=== PATIENT | female | born 1955 | race Caucasian/White ===

== ENCOUNTER → 2023-07-14 08:26 | Outpatient (REF) | payer MEDICARE, SELFPAY ==
[2023-07-14 09:06] LABS: % Basophils 0.9 % (0-2); % Eosinophils 3.4 % (0-6); % Immature Granulocytes 0.5 % (0-0.5); % Lymphocytes 24.8 % (20.5-51.1); % Monocytes 4.8 % (1.7-9.3); % Neutrophils 65.6 % (42.2-75.2); Absolute Eosinophils 0.2 10^3/uL (0-0.7); Absolute Lymphocytes 1.1 10^3/uL (1.2-3.4); Absolute Monocytes 0.2 10^3/uL (0.1-0.6); Absolute Neutrophils 2.9 10^3/uL (1.4-6.5); Hematocrit 37.4 % (37.0-47.0); Hemoglobin 13.5 g/dL (12.0-16.0); Mean Corp Hgb Conc. 36.1 g/dL (33.0-37.0); Mean Corpuscular Hgb 29.7 pg (27.0-31.0); Mean Corpuscular Volume 82.2 fL (81.0-99.0); Mean Platelet Volume 10.2 fL (7.4-10.4); Nucleated Red Blood Cells % 0 %; Platelet Count 217 10^3/uL (130-400); Red Blood Cell Count 4.55 10^6/uL (4.20-5.40); Red Cell Dist. Width 12.4 % (11.5-14.5); White Blood Cell Count 4.4 10^3/uL (4.8-10.8)
[2023-07-14 09:46] LABS: ALT (SGPT) 19 U/L (0-35); AST (SGOT) 23 U/L (14-36); Albumin 4.4 g/dl (3.5-5.0); Alkaline Phosphatase 74 U/L (38-126); Blood Urea Nitrogen 23 mg/dl (7-17); Calcium 9.5 mg/dl (8.4-10.2); Carbon Dioxide 27 mmol/L (22-30); Chloride 104 mmol/L (98-107); Glucose 111 mg/dl (70-99); HDL Cholesterol 66 mg/dl; LDL Cholesterol, Calculated 82 mg/dl; Potassium 4.5 mmol/L (3.5-5.1); Sodium 140 mmol/L (135-145); Total Bilirubin 0.7 mg/dl (0.2-1.3); Total Cholesterol 166 mg/dl (50-199); Total Protein 6.9 g/dl (6.3-8.2); Triglyceride 90 mg/dl (10-149); Very Low Density Lipoprotein 18 mg/dl (0-30); eGFR > 60.00
[2023-07-14 10:09] LABS: TSH Reflex To Free T4 0.49 uIU/ml (0.47-4.68)
== END ==
LOC: REG 08:26
PROVIDERS: ATTENDING PHYSICIAN Physician Assistant
DX: Z00.00 Encounter for general adult medical examination without abnormal findings (principal); E78.5 Hyperlipidemia, unspecified; J30.9 Allergic rhinitis, unspecified; E55.9 Vitamin D deficiency, unspecified; K21.9 Gastro-esophageal reflux disease without esophagitis; R14.3 Flatulence; Z13.29 Encounter for screening for other suspected endocrine disorder
CPT/HCPCS: 36415; 80053; 80061; 84443; 85025

== ENCOUNTER → 2023-08-17 12:55 | Outpatient (REF) | payer MEDICARE, SELFPAY | LOC: WDC 12:55 | PROVIDERS: ATTENDING PHYSICIAN Physician Assistant | DX: Z12.31 Encounter for screening mammogram for malignant neoplasm of breast (principal) | CPT/HCPCS: 77063; 77067 ==

== ENCOUNTER → 2024-08-16 07:33 | Outpatient (REF) | payer MEDICARE, SELFPAY ==
[2024-08-16 08:16] LABS: % Basophils 1.1 % (0-2); % Eosinophils 3.6 % (0-6); % Immature Granulocytes 0.2 % (0-0.5); % Lymphocytes 22.2 % (20.5-51.1); % Monocytes 5.4 % (1.7-9.3); % Neutrophils 67.5 % (42.2-75.2); Absolute Basophils 0.1 10^3/uL (0-0.2); Absolute Eosinophils 0.2 10^3/uL (0-0.7); Absolute Monocytes 0.2 10^3/uL (0.1-0.6); Hemoglobin 13.8 g/dL (12.0-16.0); Mean Corp Hgb Conc. 34.5 g/dL (33.0-37.0); Mean Corpuscular Hgb 29.4 pg (27.0-31.0); Mean Corpuscular Volume 85.3 fL (81.0-99.0); Nucleated Red Blood Cells % 0 %; Platelet Count 231 10^3/uL (130-400); Red Blood Cell Count 4.69 10^6/uL (4.20-5.40); Red Cell Dist. Width 12.4 % (11.5-14.5); White Blood Cell Count 4.5 10^3/uL (4.8-10.8)
[2024-08-16 11:50] LABS: ALT (SGPT) 19 U/L (0-35); AST (SGOT) 24 U/L (14-36); Albumin 4.7 g/dl (3.5-5.0); Alkaline Phosphatase 82 U/L (38-126); Blood Urea Nitrogen 17 mg/dl (7-17); Calcium 9.5 mg/dl (8.4-10.2); Carbon Dioxide 25 mmol/L (22-30); Chloride 105 mmol/L (98-107); Glucose 108 mg/dl (70-99); HDL Cholesterol 74 mg/dl; LDL Cholesterol, Calculated 101 mg/dl; Potassium 4.6 mmol/L (3.5-5.1); Sodium 142 mmol/L (135-145); Total Bilirubin 0.7 mg/dl (0.2-1.3); Total Cholesterol 201 mg/dl (50-199); Triglyceride 132 mg/dl (10-149); Very Low Density Lipoprotein 26 mg/dl (0-30); eGFR > 60.00
[2024-08-16 12:49] LABS: Vitamin D, 25-OH*** 30.7 ng/mL (30-80)
== END ==
LOC: REG 07:33
PROVIDERS: ATTENDING PHYSICIAN Physician Assistant
DX: F51.04 Psychophysiologic insomnia (principal); J45.991 Cough variant asthma; E78.5 Hyperlipidemia, unspecified; E55.9 Vitamin D deficiency, unspecified; Z13.0 Encounter for screening for diseases of the blood and blood-forming organs and certain disorders involving the immune mechanism; R73.01 Impaired fasting glucose
CPT/HCPCS: 36415; 80053; 80061; 82306; 85025

== ENCOUNTER → 2024-08-20 12:59 | Outpatient (REF) | payer MEDICARE, SELFPAY | LOC: WDC 12:59 | PROVIDERS: ATTENDING PHYSICIAN Physician Assistant | DX: Z12.31 Encounter for screening mammogram for malignant neoplasm of breast (principal) | CPT/HCPCS: 77063; 77067 ==

== ENCOUNTER 2024-11-16 05:26 | Observation (INO) | payer MEDICARE, SELFPAY ==
[2024-11-15 22:38] VITALS: BP 172/96
[2024-11-15 23:24] LABS: Hematocrit 37.0 % (37.0-47.0); Hemoglobin 12.9 g/dL (12.0-16.0); Mean Corp Hgb Conc. 34.9 g/dL (33.0-37.0); Mean Corpuscular Volume 84.3 fL (81.0-99.0); Nucleated Red Blood Cells % 0 %; Platelet Count 218 10^3/uL (130-400); Red Cell Dist. Width 12.4 % (11.5-14.5)
[2024-11-15 23:32] LABS: ALT (SGPT) 16 U/L (0-35); AST (SGOT) 22 U/L (14-36); Albumin 4.4 g/dl (3.5-5.0); Alkaline Phosphatase 75 U/L (38-126); Blood Urea Nitrogen 16 mg/dl (7-17); Calcium 9.6 mg/dl (8.4-10.2); Carbon Dioxide 27 mmol/L (22-30); Chloride 106 mmol/L (98-107); Glucose 135 mg/dl (70-99); Potassium 3.8 mmol/L (3.5-5.1); Sodium 139 mmol/L (135-145); Total Protein 7.1 g/dl (6.3-8.2); eGFR > 60.00
[2024-11-15 23:43] LABS: Lipase > 4000 U/L (23-300); Troponin I < 0.012 ng/ml
[2024-11-16] VITALS (9 sets, daily range): BP systolic 125–164; BP diastolic 63–99; BMI 20.6; BMI 24.9
--- NOTE | 2024-11-16 02:00 | ED.GENMED ---
History of Present Illness
General
Chief Complaint: Abdominal Pain
Source: patient and spouse
Exam Limitations: none
Time Seen by Provider: 11/16/24 01:47
Nursing documentation reviewed up to this point in time: agreed with
History of Present Illness
History of Present Illness:
69-year-old female presenting to the emergency department today with concerns of 2 days of epigastric abdominal pain with associated nausea no vomiting no diarrhea constipation. Denies any fevers chest pain or shortness of breath.
Past History
Past History
ED Past Medical History: Asthma, GERD and Hypercholesterolemia; Negative HTN, IDDM or NIDDM
Social History
Tobacco: Non-smoker
Family History
Family History: CAD
Review of Systems
Review of Systems
Allergies reviewed?: Yes
All Other Systems: ROS reviewed and negative except as documented in HPI and ROS
Phy Exam
Physical Exam
Physical Exam:
GENERAL: Alert , in no apparent distress
EYE: pupils equal and reactive
NECK: Supple, no significant adenopathy.
ENT: o/p clr, mmm.
CARDIAC: Regular rate and rhythm .
LUNGS: Clear breath sounds bilaterally, no acute respiratory distress, no wheezes/rales/rhonchi
ABDOMEN: Epigastric pain to palpation otherwise soft abdomen
NEUROLOGICAL: Alert and oriented, no focal neuro deficits
SKIN: Warm and dry, skin intact.
MUSCULOSKELETAL: No edema, well perfused.
PSYCH: Normal and appropriate interaction.
Course
Orders/Labs/Results
Orders:
Orders
11/15/24 22:41
Electrocardiogram (*1) Urgent
Reason for Study: Abdominal Pain
EKG- Treatment ONCE
11/15/24 22:58
Complete Blood Count/With Diff Urgent
Comprehensive Metabolic Panel Urgent
Lipase Urgent
Troponin I Urgent
11/16/24 01:36
CT Abd/Pel (IV only)-DH only Urgent
Comment:
Reason For Exam: pain, lipase elevation
11/16/24 02:00
0.9% Sodium Chloride 1000 ml [Nss] 1,000 ml IV BOLUS
Abnormal Lab Results
11/15/24
22:58
Lymphocytes % 17.4 L %
(20.5-51.1)
Glucose 135 H mg/dl
(70-99)
Lipase > 4000 H* U/L
(23-300)
11/15/24 22:58
11/15/24 22:58
Vital Signs
Initial and Last Documented VS:
Initial Vital Signs
Temp Pulse Resp BP Pulse Ox
98.6 F 83 18 172/96 97
11/15/24 22:38 11/15/24 22:38 11/15/24 22:38 11/15/24 22:38 11/15/24 22:38
Last Documented Vital Signs
Temp Pulse Resp BP Pulse Ox
98.6 F 73 16 144/80 97
11/15/24 22:38 11/16/24 02:15 11/16/24 02:15 11/16/24 02:00 11/16/24 02:15
MDM/Problems Addressed
MDM/Problems Addressed:
69-year-old female presenting to the emergency department today with epigastric abdominal pain past 2 days. Appetite associated diarrhea. On arrival here initial labs showing elevated lipase level consistent with pancreatitis. She denies
significant alcohol use does sometimes have a glass of wine. CT scan was obtained that did not show any complications, did confirm pancreatitis. Plan to admit for further treat, IV hydration.
*Pulse Oximetry
SaO2: 97
Oxygen Mode of Delivery: Room air
Patient hypoxic: no (97)
*Critical Care Note
Total Time (30-74mins, 75-104mins- exclusive of procedures): Not Applicable
ED Attending Note
-
Portions of this chart may have been created with voice recognition software.� Occasional wrong word or��sound alike� substitutions may have occurred due to the inherent limitations of voice recognition software.
Discharge Plan
Departure
Patient Disposition: Admit
Date of Disposition: 11/16/24
Time of Disposition: 03:27
Admit to: Med/Surg
Admit to doctor: Iva
Presentation/result/management discussed w/ accepting MD/DO: Hospitalist
Patient with high blood pressure during this ER visit?: No
Condition: Good
Covid-19: Not Applicable
Discharge Problem:
Pancreatitis
Prescriptions:
No Action
atorvastatin 10 MG tablet
10 mg PO DAILY
montelukast 10 MG tablet
10 mg PO HS
famotidine 20 mg Tablet
20 mg PO BID
Referrals:
Trini Ingram PA-C [Family Provider, Internal Medicine]
Interventions
Interventions:
*Risk Screen - Suicide Last Done: 11/15/24 22:38
*General Assessment Last Done: 11/15/24 22:38
*Neglect/Abuse Screening Last Done: 11/15/24 22:38
*ED- Fall Risk Assessment Last Done: 11/16/24 02:24
LF-Meuzqa-Glrkewwxeo Assessment Last Done: 11/16/24 02:23
Discharge Date and Time
Print Language: [place] CITIZEN
[2024-11-16] MEDS: NSS 1000 IV (02:22)
--- NOTE | 2024-11-16 05:01 | HPS.HSE ---
Family Physician
-
Family Physician: Trini Ingram
Chief Complaint
-
Abdominal pain
History of Present Illness
This is a 69-year-old with past medical history of hyperlipidemia and CAD who presents to the emergency department with acute onset of epigastric pain.
Patient reported that about 2 months ago she started having diffuse abdominal pain associated with bloating and gas. She was treated with and gas medications and did have some improvement in she did not think about it up until yesterday when she
started having severe epigastric pain. She reports the pain as localized only in the epigastric region without any radiation. No associated nausea or vomiting. She denied any right upper quadrant discomfort. She denies any changes to the color
of her skin or eyes.
Patient drinks about 1 wine glass every night. She has not had any episodes of pancreatitis biliary disease in the past. She denies any weight loss medications. She denies any other medication changes. She denies any trauma or instrumentation.
Emergency Department patient was afebrile, nontachycardic and hemodynamically stable. ECG shows normal sinus rhythm at rate of [address] or T wave changes. Troponin was negative.
CBC completely unremarkable. Electrolytes were normal. BUN/creatinine were normal. LFTs were normal. Lipase was elevated at greater than 4000.
CT of the abdomen pelvis shows acute pancreatitis with mild peripancreatic inflammation, no drainable fluid collection, no necrosis. Multiple hypoattenuating lesions in the liver some simple cysts and some close multiple cracks. No note made of
any biliary ductal abnormalities or gallbladder abnormalities.
Medical History
Past Medical History
Past Medical History: Reports Asthma, GERD and Hypercholesterolemia
Past Surgical History: Reports None
Social History
Tobacco: Non-smoker
Alcohol: Daily
Drug: None
Living: With Family
Family History
Family History: Not pertinent
Allergies / Home Medications
Allergies reflects when Allergies were last updated in [facility].
Home Medications with original date entered in [facility]
Allergy/Medication List:
Allergies
Allergy/AdvReac Type Severity Reaction Status Date / Time
No Known Drug Allergies Allergy Unknown Verified 03/15/14 11:46
molds,mildew Allergy chest Uncoded 03/15/14 11:46
tighness
Home Medications
atorvastatin 10 mg tablet 10 mg PO DAILY 03/15/14
montelukast 10 mg tablet 10 mg PO HS 03/15/14
famotidine 20 mg tablet 20 mg PO BID 11/16/24
Review of Systems
-
Constitutional: Reports No Symptoms
EENT: Reports No Symptoms
Respiratory: Reports No Symptoms
Cardiac: Reports No Symptoms
Abdomen/GI: Reports No Symptoms
: Reports No Symptoms
Musculoskeletal: Reports No Symptoms
Skin: Reports No Symptoms
Neurological: Reports No Symptoms
Endocrine: Reports No Symptoms
Hematologic/Lymphatic: Reports No Symptoms
Psych: Reports No Symptoms
Physical Exam
Vital Signs
Vital Signs
Temp Pulse Resp BP Pulse Ox
98.6 F 60 13 130/63 98
11/15/24 22:38 11/16/24 04:30 11/16/24 04:30 11/16/24 04:01 11/16/24 02:30
Physical Exam
General: Well Developed, Well Nourished and No Apparent Distress
HEENT: NormoCephalic, Moist mucous membranes and Atraumatic
Respiratory: Clear
Cardiac: S1/S2 and Regular Rhythm; No Murmur or Rub
GI: Soft, Non Tender, Non Distended and Normal Bowel Sounds; No Organomegaly
Rectal: Deferred by Provider
Musculoskeletal: No Clubbing, No Cyanosis and No Edema
Skin: No Rash
Neuro: Nonfocal/grossly intact
Laboratory Results
-
11/15/24 22:58
11/15/24 22:58
Laboratory Results
Total Bilirubin 0.4 mg/dl (0.2-1.3) 11/15/24 22:58
AST 22 U/L (14-36) 11/15/24 22:58
ALT 16 U/L (0-35) 11/15/24 22:58
Alkaline Phosphatase 75 U/L (38-126) 11/15/24 22:58
Troponin I < 0.012 ng/ml 11/15/24 22:58
Lipase > 4000 U/L (23-300) H* 11/15/24 22:58
Data Reviewed
-
CT Scan: Report Reviewed by me
Lab Data: Labs Reviewed by me
Old Records: Reviewed
Impression/Plan
-
IMPRESSION:
Pain with acute pancreatitis. Daily alcohol use. No history of alcohol use disorder otherwise. No biliary abnormalities or gallstones noted. LFTs were normal. No culprit medications. No obvious infections. No recent trauma or order obvious
etiology for acute pancreatitis. Suspect alcohol induced pancreatitis.
PLAN:
Acute pancreatitis -EtOH pancreatitis
-Admit to MedSurg observation
-Advance to clear liquid diet in a.m.
-Pain control and antiemetics
-IV fluids with LR at 150 mL an hour
-Trend LFTs, check triglyceride
-Serial examinations
DVT prophylaxis�Lovenox subcu
CODE STATUS�full code
[2024-11-16] MEDS: PEPCID 20 MG PO ×2 (08:22→21:10)
[2024-11-16] MEDS: LIPITOR 10 MG PO (08:23)
[2024-11-16 09:30] LABS: Hematocrit 36.5 % (37.0-47.0); Hemoglobin 12.5 g/dL (12.0-16.0); Mean Corp Hgb Conc. 34.2 g/dL (33.0-37.0); Mean Corpuscular Volume 86.1 fL (81.0-99.0); Nucleated Red Blood Cells % 0 %; Platelet Count 198 10^3/uL (130-400); Red Cell Dist. Width 12.4 % (11.5-14.5)
[2024-11-16] MEDS: LR 1000 IV ×3 (09:52→23:28)
[2024-11-16 09:56] LABS: ALT (SGPT) 14 U/L (0-35); AST (SGOT) 19 U/L (14-36); Albumin 4.1 g/dl (3.5-5.0); Alkaline Phosphatase 79 U/L (38-126); Blood Urea Nitrogen 13 mg/dl (7-17); Calcium 9.7 mg/dl (8.4-10.2); Carbon Dioxide 30 mmol/L (22-30); Chloride 107 mmol/L (98-107); Estimated Creatinine Clearance 63 ml/min; Glucose 113 mg/dl (70-99); Potassium 4.9 mmol/L (3.5-5.1); Sodium 139 mmol/L (135-145); Total Protein 6.6 g/dl (6.3-8.2); eGFR > 60.00
[2024-11-16 10:13] LABS: Lipase > 4000 U/L (23-300)
--- NOTE | 2024-11-16 11:00 | PTCARENOTE ---
Received patient from ED via wheelchair. AAOx3, ambulated to bed without assistance. Assessed and oriented to room. Clear liquid diet ordered. Call campbell in close reach.
--- NOTE | 2024-11-16 12:02 | W.PN.HOSP.TC ---
Today's Communication/Plan
-
Monitor vital signs and see plan
Continue lactated Ringer's
Pain control
Clears for now
Nonbillable note
Assessment / Plan
Assessment / Plan
General: Well Developed, Well Nourished and No Apparent Distress
HEENT: NormoCephalic, Moist mucous membranes and Atraumatic
Respiratory: Clear
Cardiac: S1/S2 and Regular Rhythm; No Murmur or Rub
GI: Soft, Non Tender, Non Distended and Normal Bowel Sounds
Musculoskeletal: No Edema
Skin: No Rash
Neuro: Nonfocal/grossly intact
Acute pancreatitis -suspect EtOH pancreatitis
- Continue with clear
-Pain control and antiemetics
Continue with lactated Ringer's
-Trend LFTs, check triglyceride
HLD
DVT prophylaxis�Lovenox subcu
CODE STATUS�full code
Anticipated Discharge: 24 - 48 hours
Subjective/Interval History
-
Date of Service: November 16, 2024
Does have some discomfort
Objective Data
-
Labs:
Laboratory Results
11/16/24
09:21
WBC 6.6
Hgb 12.5
Hct 36.5 L
Plt Count 198
Sodium 139
Potassium 4.9 D
Chloride 107
Carbon Dioxide 30
BUN 13
Creatinine 0.7
Glucose 113 H
Calcium 9.7
Total Bilirubin 0.8
AST 19
ALT 14
Alkaline Phosphatase 79
Vital Signs:
Vital Signs
Temp Pulse Resp BP Pulse Ox
98.1 F 73 18 139/86 98
11/16/24 08:51 11/16/24 08:51 11/16/24 08:51 11/16/24 08:51 11/16/24 08:51
[2024-11-16] MEDS: LOVENOX 40 MG SC (18:13)
[2024-11-16] MEDS: TYLENOL 650 MG PO (21:09)
[2024-11-16] MEDS: SINGULAIR 10 MG PO (21:10)
[2024-11-17] MEDS: LR 1000 IV ×3 (06:02→19:55)
[2024-11-17 07:21] LABS: Hematocrit 33.0 % (37.0-47.0); Hemoglobin 11.4 g/dL (12.0-16.0); Mean Corp Hgb Conc. 34.5 g/dL (33.0-37.0); Mean Corpuscular Volume 84.2 fL (81.0-99.0); Nucleated Red Blood Cells % 0 %; Platelet Count 184 10^3/uL (130-400); Red Cell Dist. Width 12.4 % (11.5-14.5)
[2024-11-17 07:30] VITALS: BP 149/83
[2024-11-17 07:30] LABS: ALT (SGPT) 11 U/L (0-35); AST (SGOT) 18 U/L (14-36); Albumin 3.4 g/dl (3.5-5.0); Alkaline Phosphatase 63 U/L (38-126); Blood Urea Nitrogen 8 mg/dl (7-17); Calcium 8.9 mg/dl (8.4-10.2); Carbon Dioxide 25 mmol/L (22-30); Chloride 109 mmol/L (98-107); Estimated Creatinine Clearance 73 ml/min; Glucose 89 mg/dl (70-99); Lipase 1260 U/L (23-300); Potassium 4.1 mmol/L (3.5-5.1); Sodium 137 mmol/L (135-145); Total Protein 5.6 g/dl (6.3-8.2); Triglycerides 119 mg/dl (10-149); eGFR > 60.00
[2024-11-17] MEDS: PEPCID 20 MG PO ×2 (08:19→19:55)
[2024-11-17] MEDS: LIPITOR 10 MG PO (08:19)
--- NOTE | 2024-11-17 12:18 | W.PN.HOSP.TC ---
Today's Communication/Plan
-
Monitor vital signs see plan
Continue with fulls
Continue with IV fluids
Symptoms slowly improving
Assessment / Plan
Assessment / Plan
General: Well Developed, Well Nourished and No Apparent Distress
HEENT: NormoCephalic, Moist mucous membranes and Atraumatic
Respiratory: Clear
Cardiac: S1/S2 and Regular Rhythm; No Murmur or Rub
GI: Soft, Non Tender, Non Distended and Normal Bowel Sounds
Musculoskeletal: No Edema
Skin: No Rash
Neuro: Nonfocal/grossly intact
Acute pancreatitis -suspect EtOH pancreatitis
Advance diet to fulls
Symptoms slowly improving
-Pain control and antiemetics
Continue with lactated Ringer's
-Trend LFTs, triglyceride 119
HLD
DVT prophylaxis�Lovenox subcu
CODE STATUS�full code
Anticipated Discharge: Within 24 hours
Subjective/Interval History
-
Date of Service: November 17, 2024
denies nausea
Objective Data
-
Labs:
Laboratory Results
11/17/24
05:51
WBC 4.7 L
Hgb 11.4 L
Hct 33.0 L
Plt Count 184
Sodium 137
Potassium 4.1
Chloride 109 H
Carbon Dioxide 25
BUN 8
Creatinine 0.6
Glucose 89
Calcium 8.9
Total Bilirubin 0.7
AST 18
ALT 11
Alkaline Phosphatase 63
Vital Signs:
Vital Signs
Temp Pulse Resp BP Pulse Ox
98.3 F 60 16 149/83 99
11/17/24 07:30 11/17/24 07:30 11/17/24 07:30 11/17/24 07:30 11/17/24 07:30
I&O
11/16/24 11/17/24 11/18/24
06:59 06:59 06:59
Intake Total 240 / 240
Balance 240 / 240
--- NOTE | 2024-11-17 15:23 | CM ---
Patient seen at bedside with present on . Patient states that she lives with her in a 2 story home but they primarily stay on the first floor. Patient states that she used to work at [employer]. Patient uses the [facility]
[place]. Patient PCP is luz elena SMITH. Patient plan is for discharge home with no needs. CM will continue to follow for discharge planning needs.
Plan; home with no needs.
[2024-11-17 16:30] VITALS: BP 144/77
[2024-11-17] MEDS: LOVENOX 40 MG SC (17:27)
[2024-11-17] MEDS: SINGULAIR 10 MG PO (20:06)
[2024-11-17 23:31] VITALS: BP 153/78
[2024-11-18] MEDS: LR 1000 IV (02:57)
[2024-11-18 07:29] VITALS: BP 160/86
[2024-11-18 08:00] LABS: Hematocrit 32.7 % (37.0-47.0); Hemoglobin 11.5 g/dL (12.0-16.0); Mean Corp Hgb Conc. 35.2 g/dL (33.0-37.0); Mean Corpuscular Volume 84.7 fL (81.0-99.0); Nucleated Red Blood Cells % 0 %; Platelet Count 196 10^3/uL (130-400); Red Cell Dist. Width 12.3 % (11.5-14.5)
[2024-11-18 08:22] LABS: ALT (SGPT) 11 U/L (0-35); AST (SGOT) 18 U/L (14-36); Albumin 3.6 g/dl (3.5-5.0); Alkaline Phosphatase 68 U/L (38-126); Blood Urea Nitrogen 8 mg/dl (7-17); Calcium 9.0 mg/dl (8.4-10.2); Carbon Dioxide 29 mmol/L (22-30); Chloride 107 mmol/L (98-107); Estimated Creatinine Clearance 55 ml/min; Glucose 101 mg/dl (70-99); Potassium 4.6 mmol/L (3.5-5.1); Sodium 139 mmol/L (135-145); Total Protein 5.8 g/dl (6.3-8.2); eGFR > 60.00
[2024-11-18 09:02] VITALS: BP 146/84
[2024-11-18] MEDS: PEPCID 20 MG PO (09:03)
[2024-11-18] MEDS: LIPITOR 10 MG PO (09:03)
--- NOTE | 2024-11-18 10:43 | W.PN.HOSP.TC ---
Today's Communication/Plan
-
Monitor vital signs and see plan
Discharge today with outpatient follow-up with primary care provider
Time of discharge 37 minutes
Assessment / Plan
Assessment / Plan
General: Well Developed, Well Nourished and No Apparent Distress
HEENT: NormoCephalic, Moist mucous membranes and Atraumatic
Respiratory: Clear
Cardiac: S1/S2 and Regular Rhythm; No Murmur or Rub
GI: Soft, Non Tender, Non Distended and Normal Bowel Sounds
Musculoskeletal: No Edema
Skin: No Rash
Neuro: Nonfocal/grossly intact
Acute pancreatitis -suspect EtOH pancreatitis
Tolerated low-fat diet. Was patient to follow-up with PCP closely outpatient
Symptoms resolved
dc furhter IVF
-Trend LFTs, triglyceride 119
HLD
DVT prophylaxis�Lovenox subcu
CODE STATUS�full code
Anticipated Discharge: Today
Subjective/Interval History
-
Date of Service: November 18, 2024
denies pain
Objective Data
-
Labs:
Laboratory Results
11/18/24
06:21
WBC 5.1
Hgb 11.5 L
Hct 32.7 L
Plt Count 196
Sodium 139
Potassium 4.6
Chloride 107
Carbon Dioxide 29
BUN 8
Creatinine 0.8
Glucose 101 H
Calcium 9.0
Total Bilirubin 0.5
AST 18
ALT 11
Alkaline Phosphatase 68
Vital Signs:
Vital Signs
Temp Pulse Resp BP Pulse Ox
98.2 F 72 18 146/84 98
11/18/24 07:29 11/18/24 09:02 11/18/24 07:29 11/18/24 09:02 11/18/24 07:29
I&O
11/17/24 11/18/24 11/19/24
06:59 06:59 06:59
Intake Total 240 / 240 2320 / 2320
Balance 240 / 240 2320 / 2320
--- NOTE | 2024-11-18 10:46 | W.DCSUMMARY ---
Discharge Summary
Discharge Data
Date of Admission: 11/16/24
Date of Discharge: 11/18/24
-
Pending Results: No
Hospital Course
69-year-old female with past medical history of hyperlipidemia, alcohol use came to the hospital with acute pancreatitis. It was suspected the patient symptoms could likely be secondary to alcohol. Initially patient required aggressive hydration
and subsequently her lipase continued to improve. Her symptoms continue to improve as well and she was able to tolerate low-fat diet. On discharge she was instructed to follow-up closely with PCP outpatient.
Discharge Plan
-
Patient Disposition: Home (Routine Discharge)
Discharge Diagnosis/Procedures: Acute pancreatitis
Diet: Low Fat
Activity: No restrictions
Driving Restrictions: As prior to admission
Bathing Restrictions: None
Blood Work: IgG4 outpatient with primary care provider to rule out autoimmune pancreatitis
Referrals:
Trini Ingram PA-C [Family Provider, Internal Medicine] - in less than 1 week
Prescriptions:
Continued
atorvastatin 10 MG tablet
10 mg PO DAILY
montelukast 10 MG tablet
10 mg PO HS
famotidine 20 mg Tablet
20 mg PO BID
Discharge Orders:
Discharge Patient (As Directed); Ordered 11/18/24
Ordered By: Shane Kemp
Discharge Date and Time
Discharge Date/Time: 11/18/24 11:26
Print Language: BHUTANESE
[2024-11-18 11:08] VITALS: BP 168/84
--- NOTE | 2024-11-18 11:43 | CM ---
Patient seen at bedside with on . Patient for discharge home with no needs. IMM completed and signed form on chart. patient for discharge planning needs.
Plan; home with no needs anticipated.
== END 2024-11-18 11:26 | disposition home or self-care (01) ==
LOC: 4 EAST ACU 05:26
PROVIDERS: Emergency Medicine; ADMITTING PHYSICIAN Internal Medicine; ATTENDING PHYSICIAN Internal Medicine; EMERGENCY PHYSICIAN Emergency Medicine; FAMILY PHYSICIAN Physician Assistant
DX: K85.90 Acute pancreatitis without necrosis or infection, unspecified (principal); E78.00 Pure hypercholesterolemia, unspecified; J45.909 Unspecified asthma, uncomplicated; K21.9 Gastro-esophageal reflux disease without esophagitis; F10.90 Alcohol use, unspecified, uncomplicated; I25.10 Atherosclerotic heart disease of native coronary artery without angina pectoris; Z79.899 Other long term (current) drug therapy
CPT/HCPCS: 74177; 80053; 82248; 83690; 84478; 84484; 85025; 93005; 96360; 99285; G0378; Q9967

== ENCOUNTER → 2024-11-22 11:13 | Outpatient (REF) | payer MEDICARE, SELFPAY ==
[2024-11-22 12:20] LABS: Hematocrit 39.9 % (37.0-47.0); Hemoglobin 13.5 g/dL (12.0-16.0); Mean Corp Hgb Conc. 33.8 g/dL (33.0-37.0); Mean Corpuscular Volume 85.4 fL (81.0-99.0); Nucleated Red Blood Cells % 0 %; Platelet Count 284 10^3/uL (130-400); Red Cell Dist. Width 12.3 % (11.5-14.5)
[2024-11-22 12:59] LABS: ALT (SGPT) 36 U/L (0-35); AST (SGOT) 27 U/L (14-36); Albumin 4.6 g/dl (3.5-5.0); Alkaline Phosphatase 76 U/L (38-126); Blood Urea Nitrogen 17 mg/dl (7-17); Calcium 9.5 mg/dl (8.4-10.2); Carbon Dioxide 29 mmol/L (22-30); Chloride 103 mmol/L (98-107); Glucose 80 mg/dl (70-99); Potassium 5.1 mmol/L (3.5-5.1); Sodium 138 mmol/L (135-145); Total Protein 7.1 g/dl (6.3-8.2); eGFR > 60.00
[2024-11-22 13:02] LABS: Lipase 1502 U/L (23-300)
== END ==
LOC: REG 11:13
PROVIDERS: ATTENDING PHYSICIAN Physician Assistant
DX: K85.90 Acute pancreatitis without necrosis or infection, unspecified (principal)
CPT/HCPCS: 36415; 80053; 82787; 83690; 85025

== ENCOUNTER → 2024-12-12 08:01 | Outpatient (REF) | payer MEDICARE, SELFPAY ==
[2024-12-12 09:13] LABS: Hematocrit 38.2 % (37.0-47.0); Hemoglobin 12.8 g/dL (12.0-16.0); Mean Corp Hgb Conc. 33.5 g/dL (33.0-37.0); Mean Corpuscular Volume 87.0 fL (81.0-99.0); Nucleated Red Blood Cells % 0 %; Platelet Count 255 10^3/uL (130-400); Red Cell Dist. Width 12.4 % (11.5-14.5)
[2024-12-12 09:53] LABS: ALT (SGPT) 17 U/L (0-35); AST (SGOT) 20 U/L (14-36); Albumin 4.4 g/dl (3.5-5.0); Alkaline Phosphatase 71 U/L (38-126); Blood Urea Nitrogen 14 mg/dl (7-17); Calcium 9.5 mg/dl (8.4-10.2); Carbon Dioxide 28 mmol/L (22-30); Chloride 107 mmol/L (98-107); Glucose 120 mg/dl (70-99); Lipase 829 U/L (23-300); Potassium 5.4 mmol/L (3.5-5.1); Sodium 142 mmol/L (135-145); Total Protein 6.8 g/dl (6.3-8.2); eGFR > 60.00
== END ==
LOC: REG 08:01
PROVIDERS: ATTENDING PHYSICIAN Physician Assistant
DX: Z87.19 Personal history of other diseases of the digestive system (principal); R74.8 Abnormal levels of other serum enzymes
CPT/HCPCS: 36415; 80053; 83690; 85025

== ENCOUNTER → 2025-01-01 09:08 | Outpatient (REF) | payer MEDICARE, SELFPAY ==
[2025-01-01 10:03] LABS: Hematocrit 38.5 % (37.0-47.0); Hemoglobin 12.7 g/dL (12.0-16.0); Mean Corp Hgb Conc. 33.0 g/dL (33.0-37.0); Mean Corpuscular Volume 87.3 fL (81.0-99.0); Nucleated Red Blood Cells % 0 %; Platelet Count 282 10^3/uL (130-400); Red Cell Dist. Width 12.2 % (11.5-14.5)
[2025-01-01 10:40] LABS: ALT (SGPT) 269 U/L (0-35); AST (SGOT) 116 U/L (14-36); Albumin 4.6 g/dl (3.5-5.0); Alkaline Phosphatase 174 U/L (38-126); Blood Urea Nitrogen 17 mg/dl (7-17); Calcium 9.8 mg/dl (8.4-10.2); Carbon Dioxide 30 mmol/L (22-30); Chloride 105 mmol/L (98-107); Glucose 127 mg/dl (70-99); HDL Cholesterol 58 mg/dl; LDL Cholesterol, Calculated 91 mg/dl; Lipase 800 U/L (23-300); Potassium 4.5 mmol/L (3.5-5.1); Sodium 140 mmol/L (135-145); Total Protein 7.0 g/dl (6.3-8.2); Very Low Density Lipoprotein 21 mg/dl (0-30); eGFR > 60.00
== END ==
LOC: REG 09:08
PROVIDERS: ATTENDING PHYSICIAN Physician Assistant
DX: Z87.19 Personal history of other diseases of the digestive system (principal); R74.8 Abnormal levels of other serum enzymes; J45.991 Cough variant asthma; K21.9 Gastro-esophageal reflux disease without esophagitis; E78.5 Hyperlipidemia, unspecified
CPT/HCPCS: 36415; 80053; 80061; 83690; 85025

== ENCOUNTER → 2025-01-18 08:17 | Outpatient (REF) | payer MEDICARE, SELFPAY ==
[2025-01-18 09:39] LABS: Hematocrit 39.7 % (37.0-47.0); Hemoglobin 12.9 g/dL (12.0-16.0); Mean Corp Hgb Conc. 32.5 g/dL (33.0-37.0); Mean Corpuscular Volume 88.4 fL (81.0-99.0); Nucleated Red Blood Cells % 0 %; Platelet Count 220 10^3/uL (130-400); Red Cell Dist. Width 12.8 % (11.5-14.5)
[2025-01-18 12:00] LABS: ALT (SGPT) 648 U/L (0-35); AST (SGOT) 288 U/L (14-36); Albumin 4.4 g/dl (3.5-5.0); Alkaline Phosphatase 589 U/L (38-126); Amylase 94 U/L (30-110); Blood Urea Nitrogen 18 mg/dl (7-17); Calcium 9.9 mg/dl (8.4-10.2); Carbon Dioxide 28 mmol/L (22-30); Chloride 105 mmol/L (98-107); Glucose 136 mg/dl (70-99); LDH 240 U/L (120-246); Lipase 1037 U/L (23-300); Potassium 4.7 mmol/L (3.5-5.1); Sodium 140 mmol/L (135-145); Total Protein 7.4 g/dl (6.3-8.2); eGFR > 60.00
== END ==
LOC: REG 08:17
PROVIDERS: ATTENDING PHYSICIAN Physician Assistant
DX: Z87.19 Personal history of other diseases of the digestive system (principal); R82.998 Other abnormal findings in urine; R19.5 Other fecal abnormalities
CPT/HCPCS: 36415; 80053; 82150; 82787; 83615; 83690; 85025

== ENCOUNTER 2025-01-18 16:59 | Inpatient (IN) | payer MEDICARE, SELFPAY ==
[2025-01-18 14:31] VITALS: BP 114/74
--- NOTE | 2025-01-18 15:16 | ED.GENMED ---
History of Present Illness
General
Chief Complaint: Abnormal Lab Value
Source: patient
Exam Limitations: none
Time Seen by Provider: 01/18/25 14:49
Nursing documentation reviewed up to this point in time: agreed with
History of Present Illness
History of Present Illness:
seeMDM
Past History
Past History
ED Past Medical History: Asthma, GERD and Hypercholesterolemia; Negative HTN, IDDM or NIDDM
Social History
Tobacco: Non-smoker
Family History
Family History: CAD
Phy Exam
Physical Exam
Physical Exam:
see MDM
Course
Orders/Labs/Results
Orders:
Orders
01/18/25 Breakfast
NPO
Allow oral meds: Yes
Allow clear liquids: Sips of Clears
NPO with Ice Chips: Yes
01/18/25 15:13
US Abdomen Limited Urgent
Reason For Exam: painless jaundice; eval gallstone pancreatitis
01/18/25 15:14
Lactated Ringers [Lr] 1,000 ml IV BOLUS
01/18/25 15:20
Complete Blood Count/With Diff Urgent
Comprehensive Metabolic Panel Urgent
Hepatitis A IgM Antibody Urgent
Hepatitis B Core Ab, IgM Urgent
Hepatitis B Surface Antibody Urgent
Hepatitis B Surface Antigen Urgent
Hepatitis C Antibody Urgent
Lipase Urgent
01/18/25 15:21
Urinalysis Reflex To Culture Urgent
Date Specimen was Collected: 01/18/25
Time Specimen was Collected: 15:22
Urine Microscopic Reflex Cult Urgent
Urine Culture Urgent
CARLOS Source: U
Specimen Description:
Date Specimen was Collected: 01/18/25
Time Specimen was Collected: 15:22
01/18/25 16:42
GASTROINTESTINAL CONSULT Routine
Consulting Provider: Juan Sandoval
Was physician already notified: Yes
SURGICAL CONSULT Routine
Consulting Provider: Abbe Pollock
Was physician already notified: Yes
01/18/25 16:44
Admit/Transfer Patient As Directed
Co-Sign Provider:
Level of Care: Inpatient admission
Assign to:: Medical/Surgical
Physician / Group: Luisa
Diagnosis: Choledocholithiais
Reason for Hospitalization: MRI/MRCP, likely ERCP
Expected length of stay greater than two midnights?: Yes
ELOS- Estimated Length of Stay in days: 3
I certify the patient meets the requirements for IP care: Yes
PRN Pain Medication Management As Directed
May give lesser potent ordered pain med per pt: Yes
preference::
Protocol:: Medication orders for pain may be administered in a
manner that supports deferring to patient preference
when the pt is:
- Requesting an ordered lesser potent pain medication.
Least to most potent pain medications are defined
as: acetaminophen < NSAID < tramadol < opioids
(morphine, oxycodone, hydromorphone).
- Requesting a lesser dose of the same medication IF
ORDERED.
- Requesting a less intrusive route of administration
if both routes are prescribed by the provider (PO <
IV).
01/18/25 16:45
Code Status As Directed
Resuscitation Status: Full Code
01/18/25 19:14
0.9% Sodium Chloride 1000 ml [Nss] 1,000 ml IV 100 mls/hr
Acetaminophen [Tylenol] 650 mg PO Q4HPRN PRN
Enoxaparin Sodium [Lovenox] 40 mg SC QPM
Ondansetron Injectable [Zofran] 4 mg IV Q6HPRN PRN
01/18/25 19:14
MR Abdomen W/o & W Contrast Routine
Comment: With MRCP
Reason For Exam: Elevated LFTs, CBD Dilation
Recent pill cam endoscopy?: No
Activity As Directed
Activity Level: Out of Bed-Early Mobility
With Assistance
I&O [Intake/ Output] As Directed
Frequency: q12h
Vital Signs As Directed
Frequency: Per unit guidelines
DX Deep Vein Thrombosis Video Routine
01/18/25 22:00
Famotidine [Pepcid] 40 mg PO HS
Montelukast Sodium [Singulair] 10 mg PO HS
01/19/25 06:00
Complete Blood Count/No Diff IN AM
Comprehensive Metabolic Panel IN AM
Abnormal Lab Results
01/18/25 01/18/25
15:20 15:21
WBC 4.6 L 10^3/uL
(4.8-10.8)
MPV 10.5 H fL
(7.4-10.4)
Absolute Lymphs (auto) 0.6 L 10^3/uL
(1.2-3.4)
Neutrophils % 77.8 H %
(42.2-75.2)
Lymphocytes % 13.9 L %
(20.5-51.1)
BUN 21 H mg/dl
(7-17)
Glucose 179 H mg/dl
(70-99)
Total Bilirubin 8.7 H mg/dl
(0.2-1.3)
AST 320 H U/L
(14-36)
ALT 680 H* U/L
(0-35)
Alkaline Phosphatase 536 H U/L
(38-126)
Lipase 1321 H* U/L
(23-300)
Urine Ketones 1+ A
(Negative)
Ur Occult Blood Reflex 1+ A
(Negative)
Urine Nitrite (Reflex) Positive A
(Negative)
Urine Bilirubin 3+ A
(Negative)
Urine Urobilinogen 3+ A
(Neg - 1+)
Leukocyte Esterase Rfl 2+ A
(Negative)
Urine Bacteria (Reflex) Few A
(Negative)
Urine Glucose 1+ A
(Negative)
Urine Albumin (Reflex) 2+ A
(Neg - Trace)
01/18/25 15:20
01/18/25 15:20
Vital Signs
Initial and Last Documented VS:
Initial Vital Signs
Temp Pulse Resp BP Pulse Ox
36.8 C 78 18 114/74 98
01/18/25 14:31 01/18/25 14:31 01/18/25 14:31 01/18/25 14:31 01/18/25 14:31
Last Documented Vital Signs
Temp Pulse Resp BP Pulse Ox
36.8 C 52 16 158/73 99
01/18/25 19:13 01/18/25 19:13 01/18/25 19:13 01/18/25 19:13 01/18/25 19:13
MDM/Problems Addressed
Differential Diagnosis Includes:
see MDM
MDM/Problems Addressed:
Note:
CHIEF COMPLAINT(S)
Elevated lipase levels, bright yellow urine, posada stools
HISTORY OF PRESENT ILLNESS
The patient presents with elevated lipase levels from PCP. she had elevated lipase 2 mo ago without transaminitis, thought to be alcohol related but pt was never heavy drinker. she has since avoided alcohol all together and followed low fat diet.
pt's lipase downtrended to 800s in november and beginning december. However, recent tests showed levels have increased beyond 1000 U/L. She reported noticing bright yellow urine and posada stools. S. The patient denies abdominal pain, nausea, or
vomiting, although she occasionally experiences a mild twinge at the site of pain onset. She has been maintaining good energy levels without significant weight loss despite intentional dietary changes. The patient has scheduled an MRI with contrast
for further investigation and is aware of potential hospitalization for bowel rest and intravenous fluids due to elevated enzyme levels.
ADDITIONAL HISTORY OBTAINED FROM SOURCES OTHER THAN THE PATIENT
According to a conversation with a hospital physician�s assistant athletic trainer and external consultation, there is a need to potentially reschedule her MRI earlier due to cancellations and discussion of possible hospital admission.
SOCIAL DETERMINANTS AFFECTING HEALTH
The patient has abstained from alcohol consumption, reducing her intake significantly. This decision was influenced by her health condition.
REVIEW OF SYSTEMS
- Gastrointestinal: Denies abdominal pain, nausea, or vomiting. Occasional light twinges reported.
PHYSICAL EXAM
- Nursing notes reviewed and vital signs reviewed.
GENERAL: Alert , in no apparent distress
EYE: pupils equal and reactive, icteric sclera
NECK: Supple
ENT: o/p clr, mmm.
CARDIAC: Regular rate and rhythm .
LUNGS: Clear breath sounds bilaterally, no acute respiratory distress, no wheezes/rales/rhonchi
ABDOMEN: Soft, mild left lower quad tendenress, no r/g, no cvat, normal bowel sounds
NEUROLOGICAL: Alert and oriented, no focal neuro deficits
SKIN: Warm and dry, skin intact.
jaundice
MUSCULOSKELETAL: No edema, well perfused.
PSYCH: Normal and appropriate interaction.
PROBLEM LIST
- Acute: Elevated lipase levels, bright yellow urine, posada stools
PLAN
1. Initiate bowel rest and administer intravenous fluids due to elevated lipase levels.
2. Draw blood for repeat lipase levels and assess any further changes.
3. Schedule abdominal ultrasound to evaluate for gallstones and potential obstructive processes.
4. If ultrasound findings are inconclusive, proceed with CT scan to further investigate pancreatic or biliary pathology.
5. Advocate for an earlier MRI appointment if hospitalization occurs to expedite diagnostic evaluation.
DIFFERENTIAL DIAGNOSIS
The Differential Diagnosis includes, in no particular order and is not limited to:
1. Acute pancreatitis
2. Biliary obstruction
3. Gallstones
4. Chronic pancreatitis
5. Hepatobiliary disease
6. Pancreatic pseudocyst
7. Hepatitis
8. Cholecystitis
9. Sphincter of Oddi dysfunction
10. Drug-induced pancreatitis
gallstone pancreatitis suspected
hospitalized 10/2024 for pancreatitis, LFTs normal at the time
downtrended lipsae to 800
2 weeks of dark urine and soniya stool
now t bili 8.7, alt 630, ast 320, alk phos 536, lipase 1300
US shows sludge & stones without gb wall thickening
CBD dilated to 12 mm
admit to hospitalist
consulted surgery, GI
will need MRCP
*Pulse Oximetry
SaO2: 98
Oxygen Mode of Delivery: Room air
Patient hypoxic: no (99)
*Critical Care Note
Total Time (30-74mins, 75-104mins- exclusive of procedures): Not Applicable
ED Attending Note
-
Portions of this chart may have been created with voice recognition software.� Occasional wrong word or��sound alike� substitutions may have occurred due to the inherent limitations of voice recognition software.
Discharge Plan
Departure
Patient Disposition: Admit
Date of Disposition: 01/18/25
Time of Disposition: 16:27
Admit to: Med/Surg
Presentation/result/management discussed w/ accepting MD/DO: Hospitalist
Condition: Fair
Covid-19: Not Applicable
Discharge Problem:
Cholelithiasis, Pancreatitis
Interventions
Interventions:
*Risk Screen - Suicide Last Done: 01/18/25 19:18
*General Assessment Last Done: 01/18/25 14:31
*Neglect/Abuse Screening Last Done: 01/18/25 17:08
*ED COVID-19 Vaccine History Last Done: 01/18/25 19:18
*Nursing Disposition Last Done: 01/18/25 19:15
Discharge Date and Time
Discharge Date/Time: 01/18/25 19:15
[2025-01-18] MEDS: LR 1000 IV (15:26)
[2025-01-18 15:35] LABS: Urine Character Slightly Cloudy (Clear)
[2025-01-18 15:44] LABS: Hematocrit 38.3 % (37.0-47.0); Hemoglobin 12.7 g/dL (12.0-16.0); Mean Corp Hgb Conc. 33.2 g/dL (33.0-37.0); Mean Corpuscular Volume 89.9 fL (81.0-99.0); Nucleated Red Blood Cells % 0 %; Platelet Count 235 10^3/uL (130-400); Red Cell Dist. Width 12.9 % (11.5-14.5)
[2025-01-18 15:59] LABS: ALT (SGPT) 680 U/L (0-35); AST (SGOT) 320 U/L (14-36); Albumin 4.6 g/dl (3.5-5.0); Alkaline Phosphatase 536 U/L (38-126); Blood Urea Nitrogen 21 mg/dl (7-17); Calcium 9.7 mg/dl (8.4-10.2); Carbon Dioxide 28 mmol/L (22-30); Chloride 105 mmol/L (98-107); Glucose 179 mg/dl (70-99); Lipase 1321 U/L (23-300); Potassium 4.5 mmol/L (3.5-5.1); Sodium 139 mmol/L (135-145); Total Protein 7.4 g/dl (6.3-8.2); eGFR > 60.00
[2025-01-18 16:36] LABS: Urine Squamous Cell 26-30 /LPF (Few)
[2025-01-18 16:38] LABS: Urine Red Blood Cell 0-2 /HPF (0-2)
--- NOTE | 2025-01-18 16:49 | HPS.HSE ---
Addendum entered and electronically signed by Angie Moran MD 01/18/25 17:56:
This is an addendum to H&P written by Floresita Hair on 01/18/2025. �Patient seen and examined independently with PA.
69-year-old female past medical history of hyperlipidemia, prior pancreatitis, asthma, presenting with abnormal labs from primary care physician. �Labs showed significant transaminitis, bilirubin of 8.7. Dark urine for 2 weeks without abdominal pain
or vomiting or changes in bowel movements.
Was admitted in October for acute pancreatitis unclear etiology.
Vital signs normal. �Jaundiced on examination
Labs show ALT of 680, AST of 320, total bili 8.7. �Lipase of 1300
Abdominal ultrasound shows cholelithiasis/gallbladder sludge without evidence of acute cholecystitis. �Common bile duct dilatation.
Patient with likely acute choledocholithiasis. �NPO. �MRI/MRCP. �Gastroenterology and general surgery consulted.
Original Note:
Family Physician
-
Family Physician: Trini Ingram
Chief Complaint
-
Elevated LFTs
History of Present Illness
Patient is a 69 y/o female past medical history of asthma, hyperlipidemia, GERD and prior episode of pancreatitis who was sent to the emergency department due to elevated LFTs. Patient was initially admitted to the hospital back in October 2024 with
pancreatitis thought to be related to alcohol. Since that time she has avoided alcohol and has been following a low fat diet. Over the past few weeks she has developed dark urine and posada colored stools. Patient reports an occasional abdominal
twinge but denies significant pain, nausea or vomiting. Patient is scheduled to have abdomen MRI tomorrow and another type of abdomen MRI in January. Patient has blood work as outpatient today which revealed very elevated LFTs and she was referred
to the emergency department for evaluation.
Medical History
Past Medical History
Past Medical History: Reports Other
Additional Past Medical History:
Asthma
Hyperlipidemia
GERD
Past Surgical History: Reports Other
Additional Past Surgical History:
Hysterectomy
Social History
Tobacco: Non-smoker
Alcohol: Other (No alcohol since prior pancreatitis diagnosis)
Family History
Family History: Not pertinent
Allergies / Home Medications
Allergies reflects when Allergies were last updated in [facility].
Home Medications with original date entered in [facility]
Allergy/Medication List:
Allergies
Allergy/AdvReac Type Severity Reaction Status Date / Time
No Known Drug Allergies Allergy Unknown Verified 01/18/25 14:32
molds,mildew Allergy chest Uncoded 01/18/25 14:32
tighness
Home Medications
atorvastatin 10 mg tablet 10 mg PO QPM 03/15/14
montelukast 10 mg tablet 10 mg PO HS 03/15/14
famotidine 40 mg tablet (Pepcid) 40 mg PO HS 01/18/25
Review of Systems
-
A 12 point ROS was completed and negative except as noted: Yes
Constitutional: Denies Fever or Chills
Respiratory: Denies Cough or Trouble Breathing
Cardiac: Denies Chest Pain or Palpitations
Abdomen/GI: Reports See HPI
Physical Exam
Vital Signs
Vital Signs
Temp Pulse Resp BP Pulse Ox
98.3 F 78 18 114/74 98
01/18/25 14:31 01/18/25 14:31 01/18/25 14:31 01/18/25 14:31 01/18/25 15:17
Physical Exam
General: Comfortable and Conversant
HEENT: Moist mucous membranes and Other (Sclera Icteric)
Respiratory: Clear and Non Labored Respirations
Cardiac: S1/S2 and Regular Rhythm
GI: Soft and Non Tender
Genito-urinary: Other (Dark Urine)
Musculoskeletal: No Clubbing, No Cyanosis and No Edema
Skin: Warm, Dry and Jaundice
Neuro: Awake, Oriented and No Motor Deficits
Psych: Calm
Laboratory Results
-
01/18/25 15:20
01/18/25 15:20
Laboratory Results
Total Bilirubin 8.7 mg/dl (0.2-1.3) H 01/18/25 15:20
AST 320 U/L (14-36) H 01/18/25 15:20
ALT 680 U/L (0-35) H* 01/18/25 15:20
Alkaline Phosphatase 536 U/L (38-126) H 01/18/25 15:20
Lipase 1321 U/L (23-300) H* 01/18/25 15:20
Abdomen Ultrasound:
1. Cholelithiasis/gallbladder sludge without sonographic evidence for acute cholecystitis.
2. Common bile duct dilatation, new from prior CT. Choledocholithiasis or other obstructing cause not excluded. Consider further evaluation with dedicated MRI/MRCP abdomen without and with gadolinium contrast, as clinically indicated.
Data Reviewed
-
Ultrasound: Report Reviewed by me
Lab Data: Labs Reviewed by me
Impression/Plan
-
Choledocholithiasis
-Consult Gastroenterology and General Surgery
-Continue NPO / IVFs
-Check Abd MRI / MRCP
-Trend LFTs
Asthma, no acute exacerbation
-Continue Singulair
Hyperlipidemia
-Hold statin
GERD
-Continue Pepcid
DVT proph: Lovenox
Code Status: Full Code
--- NOTE | 2025-01-18 17:13 | CON.GS ---
Consultation
-
Date/Time Consultation Performed: 01/18/2025 5:14 PM
Reason for Consultation: Gallstones, obstructive jaundice
Medical History
-
Chief Complaint: Dark tea colored urine and white stools
History of Present Illness:
Patient is a 69-year-old female without significant past medical history who was recently hospitalized this past October secondary to pancreatitis which promptly improved with medical management. At that time CT imaging was completed and there were no
radiopaque gallstones visualized on CT.
Patient advises that she has had some mild intermittent slight epigastric discomfort from time to time and has been on a low-fat diet. Over the last couple weeks she has also had a bit of a backache but no significant pain describing it as 0-1 on a
scale of 10. Her appetite has been stable. No significant nausea, no anorexia, no vomiting. Over the past 7 to 10 days she has had dark tea colored urine and white stools. She followed up with her primary care and outpatient laboratory testing
was scheduled for today identifying a pattern consistent with obstructive jaundice and elevated lipase prompting referral to the emergency department. She was scheduled for an MRI tomorrow.
Past Medical History
Past Medical History: Other (Asthma, hyperlipidemia, GERD and previous bout of pancreatitis)
Past Surgical History: Gynecological (Hysterectomy)
Social History
Tobacco: Non-Smoker
Alcohol: None
Personal:
Living: With Family
Family History
Family History: Reviewed & Noncontributory
Allergies / Home Medications
Allergy/AdvReac Type Severity Reaction Status Date / Time
No Known Drug Allergies Allergy Unknown Verified 01/18/25 14:32
molds,mildew Allergy chest Uncoded 01/18/25 14:32
tighness
�Medication �Instructions �Recorded �Confirmed �Type
atorvastatin 10 mg tablet 10 mg PO QPM 03/15/14 01/18/25 History
montelukast 10 mg tablet 10 mg PO HS 03/15/14 01/18/25 History
famotidine 40 mg tablet (Pepcid) 40 mg PO HS 01/18/25 01/18/25 History
Review of Systems
-
History Source: Patient and Family
All other systems: Negative unless noted
A 10 point review of systems was completed, and was negative except as per HPI.
Physical Exam
Vital Signs
Temp Pulse Resp BP Pulse Ox
98.3 F 78 18 114/74 98
01/18/25 14:31 01/18/25 14:31 01/18/25 14:31 01/18/25 14:31 01/18/25 15:17
Lab Results
01/18/25 15:20
01/18/25 15:20
WBC 4.6 10^3/uL (4.8-10.8) L 01/18/25 15:20
Hgb 12.7 g/dL (12.0-16.0) 01/18/25 15:20
Hct 38.3 % (37.0-47.0) 01/18/25 15:20
Plt Count 235 10^3/uL (130-400) 01/18/25 15:20
Abs Immat Gran (auto) 0.0 10^3/uL (0-0.05) 01/18/25 15:20
Neutrophils % 77.8 % (42.2-75.2) H 01/18/25 15:20
Physical Exam
General: Well Developed, Well Nourished, No Apparent Distress and Comfortable
HEENT: Normocephalic and Scleral Icterus
Respiratory: Non Labored Respirations
Cardiac: Regular Rhythm
GI: Soft, Non Tender and Non Distended
Skin: Jaundice
Neuro: AO x 3 and No Motor Deficits
Psych: Calm
Data Reviewed
-
CT Scan: Image Personally Visualized and interpreted (Mild peripancreatic inflammation on imaging 11/16/2024. No radiopaque gallstones at that time. No gallbladder distention or inflammation. No pancreatic mass.), Report Reviewed by me, Discussed
with Patient and Discussed with Family
Ultrasound: Image Personally Visualized and interpreted (Gallbladder with sludge and small stones. Biliary ductal dilation approaching 12 mm. Limited views of the pancreas are unremarkable.), Report Reviewed by me, Discussed with Patient and
Discussed with Family
Assessment / Plan
-
Assessment: 69-year-old female being admitted with obstructive jaundice and cholelithiasis confirmed on ultrasound imaging in the setting of a previous history of acute pancreatitis this past October.
No clinical signs suggestive of cholangitis or cholecystitis.
Reviewed in detail with the patient and her at bedside indications for subsequent management with cholecystectomy presuming further imaging and testing confirms choledocholithiasis and gallstone mediated complication.
Plan: Await further GI recommendations and evaluation regarding imaging with MR versus EUS/ERCP
After clearance of biliary tree will further discuss with patient timing of cholecystectomy which she advises would prefer to complete at this index hospitalization.
Will follow peripherally over the weekend as further GI workup and treatment ensues and reengage when appropriate to schedule for cholecystectomy
Any of the patient's concerns or questions were confirmed to be fully addressed
[2025-01-18 19:13] VITALS: BP 158/73
--- NOTE | 2025-01-18 19:13 | PTCARENOTE ---
Pt admitted from ED @ 191. Ambulated independently to bed w/o complication. Pt AAOx3, vss. Admission assessment completed. IVF initiated per order. Abdomen hypoactive, tender. Skin intact. NPO @ midnight for MRI/MRCP. Pt oriented to room, call
campbell within reach, bed locked and in lowest position. Reviewed plan of care with pt with spouse at bedside. Questions answered. Care ongoing.
[2025-01-18] MEDS: NSS 1000 IV (19:37)
[2025-01-18] MEDS: LOVENOX 40 MG SC (19:37)
[2025-01-18 19:52] VITALS: BMI 21.8
[2025-01-18] MEDS: PEPCID 40 MG PO (21:09)
[2025-01-18] MEDS: SINGULAIR 10 MG PO (21:09)
[2025-01-18 23:41] VITALS: BP 136/77
[2025-01-19] MEDS: NSS 1000 IV ×2 (04:40→16:14)
--- NOTE | 2025-01-19 06:17 | CON.GI ---
Addendum entered and electronically signed by Juan Sandoval MD 01/19/25 10:59:
I saw and examined the patient.
The GROCERY WORKER or PA's note was reviewed and I agree with the note.
Comment:
This patient is a 69-year-old woman who had a recent admission for pancreatitis. She came to the hospital because of painless jaundice. Labs showed an elevated bilirubin. She does notice some dyspeptic like symptoms but rare. There was no true
etiology for pancreatitis on last admission. She was scheduled for an outpatient MRI to follow-up. She drinks 1 glass of wine a day. She has lost weight since her last mention. imaging shows dilated CBD
abd: soft, epigastric tenderness
impression:
painless jaundice
hx of pancreatitis
epigastric pain
weight loss
plan:
follow liver tests
MRI/MRCP
likely EUS +/- ERCP based on imaging
surgery already following
Original Note:
Consultation
-
Date/Time Consultation Requested: 01/18/25 1645
Date/Time Consultation Performed: 01/19/25 0715
Requesting Provider: Floresita Ramos PA-C
Performing Provider: RODDY Keane, Juan Sandoval MD
Reason for Consultation: increased LFT's, lipase
Medical History
Chief Complaint / HPI
Chief Complaint: jaundice, dark urine, mild indigestion
History of Present Illness:
Pt is a 69yo with hx PAC's, Asthma, GERD, colon polyps, hypercholesterolemia, allergic rhinitis, overactive bladder, post menopausal bleeding with prior endometrial polyps with prior pelvic reconstruction,MIAN/SBO,hysteroscopy/D+C, polypectomy,
Proctalgia fugax, DDD, and prior pancreatitis. She admits last spring with some constipation and mild indigestion She was admitted in October with elevated lipase possible ETOH related pancreatitis and admits to drinking 1 glass wine daily prior to
admission. During that admission she was noted with normal LFT's with lipase >4000. She went for follow up with PCP in November. She continued with some vague indigestion and adjusted statin medication and was recommended repeat labs. She had
avoided ETOH and maintained low fat diet since that time. She now began with dark urine and posada stools and was schedule for OP MRI but noted with change in labs and direct to ER. She was noted with rise in LFT since beginning of December. In
October she completed CT with acute pancreatitis no fluid collection, small HH, no Gallbladder dilation, stone or fluid, no duct dilation. Us completed on this admission with gallstones, sludge and no acute cholecystitis, CBD dilation new from CT
choledocholithiasis vs other obstructing cause not excluded. t/c MRI follow up.
At this time denies abdominal pain but minimal indigestion. She admits to 15 lbs wt loss since October with initiation of low fat diet. She also admits to posada stool and dark urine. She denies odynophagia, dysphagia, nausea, vomiting, diarrhea,
or rectal bleeding.
Past Medical History
Past Medical History: Arrhythmias (PVC's), Asthma, GERD, Hypercholesterolemia and Other (allergic rhinitis, colon polyps, overactive bladder, post menopausal bleeding with prior endometrial polyps, Proctalgiafugax, DDD, pancreatitis 1999)
Past Surgical History: Gynecological (hysteroscopy/D+C, polypectomy, MIAN, BSO, pelvic floor reconstruction)
Social History
Tobacco: Former Smoker (35 years ago)
Alcohol: Former (prior to october 30 glass wine spritzer daily)
Drug: None
Personal:
Living: With Family
Employment: Retired
Family History
Family History: Other (no family hx GI malignancies, pancreatitis or pancreatic problems)
Allergies / Home Medications
Allergy/AdvReac Type Severity Reaction Status Date / Time
No Known Drug Allergies Allergy Unknown Verified 01/18/25 14:32
molds,mildew Allergy chest Uncoded 01/18/25 14:32
tighness
�Medication �Instructions �Recorded
atorvastatin 10 mg tablet 10 mg PO QPM 03/15/14
montelukast 10 mg tablet 10 mg PO HS 03/15/14
famotidine 40 mg tablet (Pepcid) 40 mg PO HS 01/18/25
Review of Systems
-
History Source: Patient
Constitutional: Reports Weight Loss and Fatigue
EENT: Reports No Symptoms
Respiratory: Reports No Symptoms
Cardiac: Reports No Symptoms
Abdomen/GI: Reports Constipated (several months ago ) and Other (mild indigestion , posada stools)
: Reports Dark Urine
Musculoskeletal: Reports No Symptoms
Skin: Reports No Symptoms
Neurological: Reports No Symptoms
Endocrine: Reports No Symptoms
Hematologic/Lymphatic: Reports No Symptoms
Vital Signs
Temp Pulse Resp BP Pulse Ox
97.7 F 50 15 136/77 99
01/18/25 23:41 01/18/25 23:41 01/18/25 23:41 01/18/25 23:41 01/18/25 23:41
Physical Exam
Exam
General: Well Developed, Well Nourished and No Apparent Distress
HEENT: Other (jaundice )
Cardiac: Regular Rhythm
GI: Soft, Non Tender and Non Distended
Musculoskeletal: No Clubbing and No Cyanosis
Skin: Warm and Dry
Neuro: Awake, Alert and AO x 3
Psych: Calm
Results
WBC 4.6 10^3/uL (4.8-10.8) L 01/18/25 15:20
Hgb 12.7 g/dL (12.0-16.0) 01/18/25 15:20
Hct 38.3 % (37.0-47.0) 01/18/25 15:20
MCV 89.9 fL (81.0-99.0) 01/18/25 15:20
Plt Count 235 10^3/uL (130-400) 01/18/25 15:20
Absolute Neuts (auto) 3.6 10^3/uL (1.4-6.5) 01/18/25 15:20
Sodium 139 mmol/L (135-145) 01/18/25 15:20
Potassium 4.5 mmol/L (3.5-5.1) 01/18/25 15:20
Chloride 105 mmol/L (98-107) 01/18/25 15:20
Carbon Dioxide 28 mmol/L (22-30) 01/18/25 15:20
BUN 21 mg/dl (7-17) H 01/18/25 15:20
Creatinine 0.8 mg/dL (0.6-1.0) 01/18/25 15:20
Calcium 9.7 mg/dl (8.4-10.2) 01/18/25 15:20
Total Bilirubin 8.7 mg/dl (0.2-1.3) H 01/18/25 15:20
AST 320 U/L (14-36) H 01/18/25 15:20
ALT 680 U/L (0-35) H* 01/18/25 15:20
Alkaline Phosphatase 536 U/L (38-126) H 01/18/25 15:20
Lipase 1321 U/L (23-300) H* 01/18/25 15:20
Diagnostic Image Results:
11/16/24 CT Abd/Pel (IV only)-DH only
1. Findings consistent with acute pancreatitis. No evidence of pancreatic necrosis or peripancreatic fluid collection.
2. Small hiatal hernia.
Gallbladder: There is no significant dilation of the gallbladder. No radiopaque gallstones are appreciated, and there is no significant pericholecystic inflammatory change.
Bile Ducts: No significant biliary ductal dilation.
01/18/25 US Abdomen Limited
1. Cholelithiasis/gallbladder sludge without sonographic evidence for acute cholecystitis.
2. Common bile duct dilatation, new from prior CT. Choledocholithiasis or other obstructing cause not excluded. Consider further evaluation with dedicated MRI/MRCP abdomen without and with gadolinium contrast, as clinically indicated.
Prior GI Procedures:
EGD: 2017 [facility] - Normal examined duodenum. Biopsied.
- Erythematous mucosa in the antrum. Biopsied.
- Small hiatal hernia.
- Z-line regular, 36 cm from the incisors.
- Mucosal nodule found in the esophagus. Biopsied.
- Tortuous esophagus.
bx neg
Colonoscopy: 2022 [facility] - The examined portion of the ileum was normal.
- One 1 mm polyp in the cecum, removed with a jumbo
cold forceps. Resected and retrieved.
- One 2 mm polyp in the transverse colon, removed with
a jumbo cold forceps. Resected and retrieved.
- One 2 mm polyp in the descending colon, removed with
a jumbo cold forceps. Resected and retrieved.
- Normal mucosa in the entire examined colon. Biopsied.
- Diverticulosis in the sigmoid colon and in the
descending colon.
- Internal hemorrhoids.
bx benign HP polyp repeat 7-10 years random bx neg
Assessment / Plan
-
Pt is a 69yo with hx PAC's, Asthma, GERD, colon polyps, hypercholesterolemia, allergic rhinitis, overactive bladder, post menopausal bleeding with prior endometrial polyps with prior pelvic reconstruction,MIAN/SBO,hysteroscopy/D+C, polypectomy,
Proctalgia fugax, DDD, and prior pancreatitis. She admits last spring with some constipation and mild indigestion She was admitted in October with elevated lipase possible ETOH related pancreatitis and admits to drinking 1 glass wine daily prior to
admission. During that admission she was noted with normal LFT's with lipase >4000. She went for follow up with PCP in November. She continued with some vague indigestion and adjusted statin medication and was recommended repeat labs. She had
avoided ETOH and maintained low fat diet since that time. She now began with dark urine and posada stools and was schedule for OP MRI but noted with change in labs and direct to ER. She was noted with rise in LFT since beginning of December. In
October she completed CT with acute pancreatitis no fluid collection, small HH, no Gallbladder dilation, stone or fluid, no duct dilation. Us completed on this admission with gallstones, sludge and no acute cholecystitis, CBD dilation new from CT
choledocholithiasis vs other obstructing cause not excluded. t/c MRI follow up.
.
Laboratory Tests
11/15/24 12/12/24 01/01/25
22:58 08:46 09:20
Total Bilirubin 0.4 0.5 0.7
AST 22 20 116 H
ALT 16 17 269 H
Alkaline Phosphatase 75 71 174 H
Lipase > 4000 H* 829 H 800 H
01/18/25 01/18/25
08:36 15:20
Total Bilirubin 7.8 H 8.7 H
AST 288 H 320 H
ALT 648 H* 680 H*
Alkaline Phosphatase 589 H 536 H
Lipase 1037 H* 1321 H*
-elevated LFT's and lipase with mild indigestion
-admission in October with concern for ETOH pancreatitis drinking 1 drink daily no ETOH since that time
-US with cholelithiasis and sludge with new CBD dilation
-wt loss
-GERD
other med problems:
PAC's, Asthma, GERD, colon polyps, hypercholesterolemia, allergic rhinitis, overactive bladder, post menopausal bleeding with prior endometrial polyps with prior pelvic recontruction,MIAN/SBO,hysteroscopy/D+C, polypectomy, Proctalgia fugax, DDD
PLAN:
etiology of symptoms with concern for gallstone related pancreatitis with recent admission with acute pancreatitis in October vs other underlying pancreatic pathology mass, stricture etc as now with painless jaundice
await MRI/MRCP
currently NPO-- may be able to eat pending testing
pending MRI may need EUS vs proceed to ERCP - likely Tuesday as pt appears stable without fever, leukocytosis or signs of cholangitis
cont Pepcid with mild GERD
No anticoagulation but currently on Lovenox for DVT prophylaxis
s/p surgical eval -- pending GI work possible eladio
cont to trend labs
hepatitis panel pending
updated nursing staff
will follow
-
-
Thank you for consultation and allowing me to participate in the patient's care. Please call the water restoration technician GI physician during the after hours with any questions or concerns.
[2025-01-19 06:53] LABS: Hematocrit 33.5 % (37.0-47.0); Hemoglobin 11.0 g/dL (12.0-16.0); Mean Corp Hgb Conc. 32.8 g/dL (33.0-37.0); Mean Corpuscular Volume 88.2 fL (81.0-99.0); Platelet Count 163 10^3/uL (130-400); Red Cell Dist. Width 12.8 % (11.5-14.5)
[2025-01-19 07:00] LABS: ALT (SGPT) 546 U/L (0-35); AST (SGOT) 246 U/L (14-36); Albumin 3.7 g/dl (3.5-5.0); Alkaline Phosphatase 482 U/L (38-126); Blood Urea Nitrogen 14 mg/dl (7-17); Calcium 9.4 mg/dl (8.4-10.2); Carbon Dioxide 23 mmol/L (22-30); Chloride 111 mmol/L (98-107); Estimated Creatinine Clearance 63 ml/min; Glucose 114 mg/dl (70-99); Potassium 4.3 mmol/L (3.5-5.1); Sodium 140 mmol/L (135-145); Total Protein 6.1 g/dl (6.3-8.2); eGFR > 60.00
[2025-01-19 07:35] VITALS: BP 132/68
--- NOTE | 2025-01-19 07:39 | W.PN.HOSP.TC ---
Today's Communication/Plan
-
For MRI abdomen with and without contrast/ MRCP today
Assessment / Plan
Assessment / Plan
Impression:
Patient is a 69 y/o female past medical history of asthma, hyperlipidemia, GERD and prior episode of pancreatitis who was sent to the emergency department due to elevated LFTs. Patient was initially admitted to the hospital back in October 2024 with
pancreatitis thought to be related to alcohol. Since that time she has avoided alcohol and has been following a low fat diet. Over the past few weeks she has developed dark urine and posada colored stools. Patient reports an occasional abdominal
twinge but denies significant pain, nausea or vomiting,
Ultrasound abdomen showed :
1. Cholelithiasis/gallbladder sludge without sonographic evidence for acute cholecystitis.
2. Common bile duct dilatation, new from prior CT. Choledocholithiasis or other obstructing cause not excluded. Consider further evaluation with dedicated MRI/MRCP abdomen without and with gadolinium contrast, as clinically indicated
admitted for further management.
GI/surgery consulted.
For MRCP
Assessment/plan:
Acute pancreatitis.
Transaminitis.
Choledocholithiasis
Ultrasound abdomen shows Cholelithiasis/gallbladder sludge without sonographic evidence for acute cholecystitis. Common bile duct dilation.
No significant abdominal pain, lipase is elevated.
-Consulted Gastroenterology and General Surgery, input appreciated
- Continue to trend LFTs.
MRCP pending
Asthma, no acute exacerbation
-Continue Singulair
Hyperlipidemia
-Hold statin
GERD
-Continue Pepcid
Leukopenia.
Monitor CBC
CODE STATUS: Full code
DVT prophylaxis: Lovenox
Diet: NPO
Family communication: Discussed with at bedside
Disposition: For MRI abdomen with and without contrast/ MRCP today
Total time spent on today's encounter was 65 minutes which included time spent in counseling the patient/family regarding diagnosis and treatment plan as listed above, goals of care, and symptom management. Case was discussed with nursing staff,
specialists, and care coordinators/case management. All labs and imaging personally reviewed by me. Remainder the time spent in detailed review of previous records, lab data, imaging, and other medical provider documentation.
Anticipated Discharge: > 48 hours
Subjective/Interval History
-
Date of Service: January 19, 2025
Patient seen and examined at bedside, at bedside, denies any chest pain or shortness of breath,, very mild abdominal pain, no nausea, no vomiting, no diarrhea or constipation.
Objective Data
-
Labs:
Laboratory Results
01/19/25
06:08
WBC 3.2 L
Hgb 11.0 L
Hct 33.5 L
Plt Count 163 D
Sodium 140
Potassium 4.3
Chloride 111 H
Carbon Dioxide 23
BUN 14
Creatinine 0.7
Glucose 114 H
Calcium 9.4
Total Bilirubin 7.3 H
AST 246 H
ALT 546 H*
Alkaline Phosphatase 482 H
Vital Signs:
Vital Signs
Temp Pulse Resp BP Pulse Ox
97.7 F 50 15 136/77 99
01/18/25 23:41 01/18/25 23:41 01/18/25 23:41 01/18/25 23:41 01/18/25 23:41
I&O
01/18/25 01/19/25 01/20/25
06:59 06:59 06:59
Intake Total 1440 / 1440
Balance 1440 / 1440
Physical Exam
-
General: Well Developed, Well Nourished, No Apparent Distress and Comfortable
HEENT: Normocephalic, Atraumatic, Moist Mucous Membranes, No Ptosis, PERRLA and Nose Appears Normal
Respiratory: Clear to Auscultation and Non Labored Respirations
Cardiac: Regular Rhythm and S1/S2
Breast: Deferred by me
GI: Soft, Nondistended, Normal Bowel Sounds and Tender (Very mild epigastric tenderness)
Genito-urinary: No Costovertebral Tender
Musculoskeletal: No Clubbing, No Cyanosis and No Edema
Skin: Warm
Neuro: Awake, Alert, Oriented, AO x 3 and No Motor Deficits
Psych: Calm
Data Reviewed
-
Diagnostic Radiology: Image personally visualized and interpreted and Report Reviewed by me
CT Scan: Image personally visualized and interpreted and Report Reviewed by me
Ultrasound: Image personally visualized and interpreted and Report Reviewed by me
MRI: Image personally visualized and interpreted and Report Reviewed by me
Medical Tests (Nuc Med, Echo etc): Image personally visualized and interpreted and Report Reviewed by me
Labs: Labs Reviewed by me
Old Records: Reviewed
[2025-01-19 15:30] VITALS: BP 141/76
--- NOTE | 2025-01-19 16:07 | CM ---
Patient seen at bedside on . Patient plan is for discharge home tomorrow with . patient lives in a one story home with a dog. No DME at this time. Patient PCP is LUIS Feliz and uses the [facility]. CM will continue to
follow for discharge planning needs.
Plan; home with no needs anticipated.
[2025-01-19] MEDS: LOVENOX 40 MG SC (17:07)
[2025-01-19 20:47] LABS: Hepatitis B Surface Antigen Negative (Negative)
[2025-01-19 21:04] LABS: Hepatitis C Antibody Negative (Negative)
[2025-01-19] MEDS: PEPCID 40 MG PO (21:07)
[2025-01-19] MEDS: SINGULAIR 10 MG PO (21:07)
[2025-01-19 22:20] VITALS: BP 142/72
[2025-01-20] MEDS: NSS 1000 IV (01:26)
[2025-01-20 07:28] LABS: Hematocrit 36.5 % (37.0-47.0); Hemoglobin 11.9 g/dL (12.0-16.0); Mean Corp Hgb Conc. 32.6 g/dL (33.0-37.0); Mean Corpuscular Volume 89.2 fL (81.0-99.0); Platelet Count 179 10^3/uL (130-400); Red Cell Dist. Width 12.8 % (11.5-14.5)
[2025-01-20 07:30] VITALS: BP 143/72
[2025-01-20 07:41] LABS: INR 0.96; PT 13.1 Sec (11.4-14.6)
--- NOTE | 2025-01-20 08:10 | W.PN.GI.CBS2 ---
Today's Communication / Plan
-
EUS/ERCP tomorrow
Assessment / Plan
-
Pt is a 69yo with hx PAC's, Asthma, GERD, colon polyps, hypercholesterolemia, allergic rhinitis, overactive bladder, post menopausal bleeding with prior endometrial polyps with prior pelvic reconstruction,MIAN/SBO,hysteroscopy/D+C, polypectomy,
Proctalgia fugax, DDD, and prior pancreatitis and new painless jaundice
MRI shows pancreatic head mass with dilated panc and biliary ducts and narrowing of SMV
Plan:
f/u LFT
EUS/ERCP tomorrow, pt aware
Subjective
Subjective
Date of Service: January 20, 2025
Pt w/o any abd pain
Objective
Data Reviewed
Laboratory Data:
Laboratory Results
01/20/25 07:11
Laboratory Results
PT 13.1 Sec (11.4-14.6) 01/20/25 07:11
INR 0.96 01/20/25 07:11
Total Bilirubin 7.3 mg/dl (0.2-1.3) H 01/19/25 06:08
AST 246 U/L (14-36) H 01/19/25 06:08
ALT 546 U/L (0-35) H* 01/19/25 06:08
Alkaline Phosphatase 482 U/L (38-126) H 01/19/25 06:08
Lipase 1321 U/L (23-300) H* 01/18/25 15:20
Vital Signs and I&O:
Vital Signs
Temp Pulse Resp BP Pulse Ox
97.7 F 53 15 142/72 98
01/19/25 22:20 01/19/25 22:20 01/19/25 22:20 01/19/25 22:20 01/19/25 22:20
I&O
01/19/25 01/20/25 01/21/25
06:59 06:59 06:59
Intake Total 1440 / 1440 0 / 2160
Balance 1440 / 1440 0 / 216
Physical Exam
Physical Exam
HEENT: Anicteric (icteric)
GI: Soft, Non Distended and Non Tender
Extremities: No Edema
Neuro: Non Focal
[2025-01-20 08:13] LABS: ALT (SGPT) 582 U/L (0-35); AST (SGOT) 248 U/L (14-36); Albumin 3.9 g/dl (3.5-5.0); Alkaline Phosphatase 520 U/L (38-126); Blood Urea Nitrogen 11 mg/dl (7-17); Calcium 9.4 mg/dl (8.4-10.2); Carbon Dioxide 26 mmol/L (22-30); Chloride 108 mmol/L (98-107); Estimated Creatinine Clearance 63 ml/min; Glucose 121 mg/dl (70-99); Potassium 4.0 mmol/L (3.5-5.1); Sodium 139 mmol/L (135-145); Total Protein 6.6 g/dl (6.3-8.2); eGFR > 60.00
--- NOTE | 2025-01-20 10:47 | W.PN.HOSP.TC ---
Addendum entered and electronically signed by Freda Macedo MD 01/20/25 17:25:
patent noted to have sinus bradycardia , will obtain EKG, echo and place her on cardiac monitor technician
Original Note:
Today's Communication/Plan
-
ERCP/EUS/ FNA in am
Assessment / Plan
Assessment / Plan
Impression:
Patient is a 69 y/o female past medical history of asthma, hyperlipidemia, GERD and prior episode of pancreatitis who was sent to the emergency department due to elevated LFTs. Patient was initially admitted to the hospital back in October 2024 with
pancreatitis thought to be related to alcohol. Since that time she has avoided alcohol and has been following a low fat diet. Over the past few weeks she has developed dark urine and posada colored stools. Patient reports an occasional abdominal
twinge but denies significant pain, nausea or vomiting,
Ultrasound abdomen showed :
1. Cholelithiasis/gallbladder sludge without sonographic evidence for acute cholecystitis.
2. Common bile duct dilatation, new from prior CT. Choledocholithiasis or other obstructing cause not excluded. Consider further evaluation with dedicated MRI/MRCP abdomen without and with gadolinium contrast, as clinically indicated
admitted for further management.
GI/surgery consulted.
MRCP shows:
There is a 2.8 x 1.9 cm hypoenhancing lesion within the pancreatic head which likely represents malignancy, less likely necrosis. There is associated mild edema along the pancreas which is likely some mild superimposed pancreatitis. This mass abuts
the superior mesenteric vein which is severely narrowed at the level of the lesion. Consider US/FNA for further evaluation.
Biliary duct dilation extending to the level of the pancreatic lesion. There is no evidence of choledocholithiasis.
There is mild pericholecystic free fluid, possibly reactive given the recent negative abdominal ultrasound.
Scattered hepatic cysts.
Discussed results with patient and at bedside, reviewed by GI, for ERCP/EUS tomorrow with FNA for the mass.
Assessment/plan:
Pancreatic head mass /acute pancreatitis.
Transaminitis. Choledocholithiasis
Ultrasound abdomen shows Cholelithiasis/gallbladder sludge without sonographic evidence for acute cholecystitis. Common bile duct dilation.
No significant abdominal pain, lipase is elevated.
-Consulted Gastroenterology and General Surgery, input appreciated
- Continue to trend LFTs.
MRCP shows:
There is a 2.8 x 1.9 cm hypoenhancing lesion within the pancreatic head which likely represents malignancy, less likely necrosis. There is associated mild edema along the pancreas which is likely some mild superimposed pancreatitis. This mass abuts
the superior mesenteric vein which is severely narrowed at the level of the lesion. Consider US/FNA for further evaluation.
Biliary duct dilation extending to the level of the pancreatic lesion. There is no evidence of choledocholithiasis.
There is mild pericholecystic free fluid, possibly reactive given the recent negative abdominal ultrasound.
Scattered hepatic cysts.
Discussed results with patient and at bedside, reviewed by GI, for ERCP/EUS tomorrow with FNA for the mass.
Asthma, no acute exacerbation
-Continue Singulair
Hyperlipidemia
-Hold statin
GERD
-Continue Pepcid
Leukopenia.
Monitor CBC
CODE STATUS: Full code
DVT prophylaxis: Lovenox
Diet: NPO after midnight.
Family communication: Discussed with at bedside
Disposition: ERCP/EUS/ FNA in am
Total time spent on today's encounter was 65 minutes which included time spent in counseling the patient/family regarding diagnosis and treatment plan as listed above, goals of care, and symptom management. Case was discussed with nursing staff,
specialists, and care coordinators/case management. All labs and imaging personally reviewed by me. Remainder the time spent in detailed review of previous records, lab data, imaging, and other medical provider documentation.
Anticipated Discharge: 24 - 48 hours
Subjective/Interval History
-
Date of Service: January 20, 2025
Patient seen and examined at bedside, denies any chest pain or shortness of breath, no abdominal pain, no nausea, no vomiting, no diarrhea or constipation.
Discussed results of MRI with patient and her at bedside.
Objective Data
-
Labs:
Laboratory Results
01/20/25
07:11
WBC 3.5 L
Hgb 11.9 L
Hct 36.5 L
Plt Count 179
PT 13.1
INR 0.96
Sodium 139
Potassium 4.0
Chloride 108 H
Carbon Dioxide 26
BUN 11
Creatinine 0.7
Glucose 121 H
Calcium 9.4
Total Bilirubin 7.2 H
AST 248 H
ALT 582 H*
Alkaline Phosphatase 520 H
Vital Signs:
Vital Signs
Temp Pulse Resp BP Pulse Ox
98.1 F 56 16 143/72 99
01/20/25 07:30 01/20/25 07:30 01/20/25 07:30 01/20/25 07:30 01/20/25 07:30
I&O
01/19/25 01/20/25 01/21/25
06:59 06:59 06:59
Intake Total 1440 / 1440 2160 / 2160 660 / 660
Balance 1440 / 1440 2160 / 2160 660 / 660
Physical Exam
-
General: Well Developed, Well Nourished, No Apparent Distress and Comfortable
HEENT: Normocephalic, Atraumatic, Moist Mucous Membranes, No Ptosis, PERRLA and Nose Appears Normal
Respiratory: Clear to Auscultation and Non Labored Respirations
Cardiac: Regular Rhythm and S1/S2
Breast: Deferred by me
GI: Soft, Nondistended, Normal Bowel Sounds and Tender (Very mild epigastric tenderness)
Genito-urinary: No Costovertebral Tender
Musculoskeletal: No Clubbing, No Cyanosis and No Edema
Skin: Warm
Neuro: Awake, Alert, Oriented, AO x 3 and No Motor Deficits
Psych: Calm
--- NOTE | 2025-01-20 10:52 | CM ---
Patient seen at bedside with physician and on . Patient for further work up and physician reviewed next steps with patient at this time. Patient with all questions answered at this time. CM will continue to follow for discharge
planning needs.
Plan; pending medical treatment plan; home with VN vs home with no needs.
[2025-01-20 15:10] VITALS: BP 148/74
--- NOTE | 2025-01-20 17:30 | PTCARENOTE ---
While doing hourly rounds on patient, she mentioned that staff had been mentioning that her pulse rate was on the lower side. Patient was concerned so she started taking it herself and had been in the 40's a few times. Patient is asymptomatic. RN
listened apically for a full minute and the heart rate was 52. Dr. Macedo made aware. EKG ordered and done. Patient is now on telemetry monitoring per order.
[2025-01-20] MEDS: LOVENOX 40 MG SC (18:40)
[2025-01-20] MEDS: PEPCID 40 MG PO (22:06)
[2025-01-20] MEDS: SINGULAIR 10 MG PO (22:06)
[2025-01-20 22:32] VITALS: BP 120/90
[2025-01-21] VITALS (11 sets, daily range): BP systolic 117–158; BP diastolic 61–99
[2025-01-21 07:29] LABS: Hematocrit 36.4 % (37.0-47.0); Hemoglobin 11.9 g/dL (12.0-16.0); Mean Corp Hgb Conc. 32.7 g/dL (33.0-37.0); Mean Corpuscular Volume 88.8 fL (81.0-99.0); Platelet Count 178 10^3/uL (130-400); Red Cell Dist. Width 12.8 % (11.5-14.5)
[2025-01-21 08:03] LABS: ALT (SGPT) 666 U/L (0-35); AST (SGOT) 343 U/L (14-36); Albumin 3.9 g/dl (3.5-5.0); Alkaline Phosphatase 496 U/L (38-126); Blood Urea Nitrogen 10 mg/dl (7-17); Calcium 9.7 mg/dl (8.4-10.2); Carbon Dioxide 29 mmol/L (22-30); Chloride 107 mmol/L (98-107); Estimated Creatinine Clearance 55 ml/min; Glucose 148 mg/dl (70-99); Potassium 4.4 mmol/L (3.5-5.1); Sodium 140 mmol/L (135-145); Total Protein 6.6 g/dl (6.3-8.2); eGFR > 60.00
--- NOTE | 2025-01-21 09:19 | W.PN.GS2 ---
Addendum entered and electronically signed by Mario De Los Santos MD 01/21/25 11:02:
I saw and examined the patient independently.
The resident's documentation was reviewed and I agree with the note, assessment and plan except where noted below.
Comment: This is a 69-year-old female who presents with painless jaundice found to have a mass in the head of the pancreas concerning for malignancy.
GI to scope and biopsy today.
Discussed with the patient seeing our surgical oncologist here versus going downtown. Patient will look into this.
General surgery will sign off for now, please call with any questions or concerns.
Original Note:
Today's Communication / Plan
-
Surgery will sign off for now. Call with any questions.
Assessment / Plan
-
69 year old female with recent admission of pancreatitis, medically managed in October 2024 presented with dark colored urine, acholic stool, and jaundice. Initial abdominal ultrasound (01/18/2025) showed cholelithiasis/gallbladder sludge with common
bile duct dilation, thus surgical consult sought for suspected choledocholithiasis and gallstone. Subsequent Abdominal MRI (01/19/2025) reveals 2.8 x 1.9 cm hypoenhancing lesion within the pancreatic head, and mild pericholecystic free fluid, likely
reactive and no evidence of choledocholithiasis.
Given the findings, we believe the condition is not within the scope of general surgery.
Plan:
No intervention required from general surgery at this time.
Discussed findings and plan with patient
Appreciate GI, and hospitalist team
General Surgery will sign off for now. Call for any questions
Subjective Data
-
Date of Service: January 21, 2025
69 year old female with recent admission of pancreatitis, medically managed in October 2024 presented with dark colored urine, acholic stool, and jaundice. Initial abdominal ultrasound (01/18/2025) showed cholelithiasis/gallbladder sludge with common
bile duct dilation, thus surgical consult sought for suspected choledocholithiasis and gallstone. Subsequent Abdominal MRI (01/19/2025) reveals 2.8 x 1.9 cm hypoenhancing lesion within the pancreatic head, and mild pericholecystic free fluid, likely
reactive and no evidence of choledocholithiasis.
Patient is seen with Dr. De Los Santos at the bedside this morning with the patient's present. She is aware of her planned EUS/ERCP today. She verbalized that she understood that a mass was found in her pancreas, and currently not a procedure done
in the general surgical team. The patient had subsequent question about further surgical management which was addressed. The patient denies any abdominal pain, nausea, vomiting, shortness of breath, and fever.
Objective Data
-
Intake and Output
01/20/25 01/21/25 01/22/25
06:59 06:59 06:59
Intake Total 2160 / 2160 1020 / 1020
Balance 2160 / 2160 1020 / 1020
Intake:
Oral fluids 960 / 960 1020 / 1020
IV fluids (Total) 1200 / 1200
Other:
Number of approximated MODERATE 4
amounts of urine
Vital Signs
Temp Pulse Resp BP Pulse Ox
98.0 F 52 18 135/70 98
01/21/25 07:25 01/21/25 07:25 01/21/25 07:25 01/21/25 07:25 01/21/25 07:25
Lab Results
01/21/25 06:37
01/21/25 06:37
Calcium 9.7 mg/dl (8.4-10.2) 01/21/25 06:37
Total Bilirubin 6.8 mg/dl (0.2-1.3) H 01/21/25 06:37
AST 343 U/L (14-36) H 01/21/25 06:37
ALT 666 U/L (0-35) H* 01/21/25 06:37
Alkaline Phosphatase 496 U/L (38-126) H 01/21/25 06:37
Total Protein 6.6 g/dl (6.3-8.2) 01/21/25 06:37
Albumin 3.9 g/dl (3.5-5.0) 01/21/25 06:37
Physical Exam
-
General: not in acute distress
EENT: (+) icteric sclera
Skin: (+) generalized jaundice
Abdomen: soft, non-tender, nondistended abdomen, HBS
Patient has a wooten catheter: No
Patient has a central line: No
--- NOTE | 2025-01-21 11:45 | CM ---
Chart reviewed and patient is for possible ERCP, plan will be to home with spouse when stable.
Plan; Home with spouse when stable.
--- NOTE | 2025-01-21 13:21 | W.PN.HOSP.TC ---
Today's Communication/Plan
-
EUS/ERCP with FNA
Assessment / Plan
Assessment / Plan
Impression:
Patient is a 69 y/o female past medical history of asthma, hyperlipidemia, GERD and prior episode of pancreatitis who was sent to the emergency department due to elevated LFTs. Patient was initially admitted to the hospital back in October 2024 with
pancreatitis thought to be related to alcohol. Since that time she has avoided alcohol and has been following a low fat diet. Over the past few weeks she has developed dark urine and posada colored stools. Patient reports an occasional abdominal
twinge but denies significant pain, nausea or vomiting,
Ultrasound abdomen showed :
1. Cholelithiasis/gallbladder sludge without sonographic evidence for acute cholecystitis.
2. Common bile duct dilatation, new from prior CT. Choledocholithiasis or other obstructing cause not excluded. Consider further evaluation with dedicated MRI/MRCP abdomen without and with gadolinium contrast, as clinically indicated
admitted for further management.
GI/surgery consulted.
MRCP shows:
There is a 2.8 x 1.9 cm hypoenhancing lesion within the pancreatic head which likely represents malignancy, less likely necrosis. There is associated mild edema along the pancreas which is likely some mild superimposed pancreatitis. This mass abuts
the superior mesenteric vein which is severely narrowed at the level of the lesion. Consider US/FNA for further evaluation.
Biliary duct dilation extending to the level of the pancreatic lesion. There is no evidence of choledocholithiasis.
There is mild pericholecystic free fluid, possibly reactive given the recent negative abdominal ultrasound.
Scattered hepatic cysts.
Discussed results with patient and at bedside, reviewed by GI, for ERCP/EUS tomorrow with FNA for the mass.
Assessment/plan:
Pancreatic head mass /acute pancreatitis.
Transaminitis.
2.8 x 1.9 cm hypoenhancing lesion within the pancreatic head which likely represents malignancy, less likely necrosis. There is associated mild edema along the pancreas which is likely some mild superimposed pancreatitis. This mass abuts the
superior mesenteric vein which is severely narrowed at the level of the lesion.
GI consulted
Surg signed off
EUS/ERCP, FNA today
Can f/u with surg onc here or outpatient depending on results
Asthma, no acute exacerbation
-Continue Singulair
Hyperlipidemia
-Hold statin
GERD
-Continue Pepcid
Leukopenia.
Monitor CBC
CODE STATUS: Full code
DVT prophylaxis: Lovenox
Diet: NPO for procedure
Family communication: Discussed with at bedside
Disposition: ERCP/EUS/ FNA in am
Total time spent on today's encounter was 55 minutes which included time spent in counseling the patient/family regarding diagnosis and treatment plan as listed above, goals of care, and symptom management. Case was discussed with nursing staff,
specialists, and care coordinators/case management. All labs and imaging personally reviewed by me. Remainder the time spent in detailed review of previous records, lab data, imaging, and other medical provider documentation.
Anticipated Discharge: Within 24 hours
Subjective/Interval History
-
Date of Service: January 21, 2025
going for ERCP/EUS/ FNA
Objective Data
-
Labs:
Laboratory Results
01/21/25
06:37
WBC 3.2 L
Hgb 11.9 L
Hct 36.4 L
Plt Count 178
Sodium 140
Potassium 4.4
Chloride 107
Carbon Dioxide 29
BUN 10
Creatinine 0.8
Glucose 148 H
Calcium 9.7
Total Bilirubin 6.8 H
AST 343 H
ALT 666 H*
Alkaline Phosphatase 496 H
Vital Signs:
Vital Signs
Temp Pulse Resp BP Pulse Ox
98.1 F 52 16 130/80 98
01/21/25 11:10 01/21/25 11:10 01/21/25 11:10 01/21/25 11:10 01/21/25 11:10
I&O
01/20/25 01/21/25 01/22/25
06:59 06:59 06:59
Intake Total 21590 / 1020
Balance 21590 / 1019
Review of Systems
-
History Source: Patient
All other systems: Not reviewed unless documented
Physical Exam
-
General: Well Developed, Well Nourished, No Apparent Distress and Comfortable
HEENT: Normocephalic, Atraumatic, Moist Mucous Membranes, No Ptosis, PERRLA and Nose Appears Normal
Respiratory: Clear to Auscultation and Non Labored Respirations
Cardiac: Regular Rhythm and S1/S2
Breast: Deferred by me
GI: Soft, Nondistended, Normal Bowel Sounds and Tender (Very mild epigastric tenderness)
Genito-urinary: No Costovertebral Tender
Musculoskeletal: No Clubbing, No Cyanosis and No Edema
Skin: Warm
Neuro: Awake, Alert, Oriented, AO x 3 and No Motor Deficits
Psych: Calm
Data Reviewed
-
Ultrasound: Report Reviewed by me
MRI: Report Reviewed by me
--- NOTE | 2025-01-21 16:22 | PTCARENOTE ---
pt sent to GI lab @1250 via stretcher.
Pt returned to 2S room 2104 @1610.
pt assisted to bed. c/o feeling tired. at bedside. instructed diet is clear liquids.
care ongoing.
[2025-01-21] MEDS: LOVENOX SC (17:33)
[2025-01-21] MEDS: SINGULAIR 10 MG PO (21:39)
[2025-01-21] MEDS: PEPCID 40 MG PO (21:39)
[2025-01-21 22:00] LABS: CA 19-9 523 U/mL (<=35)
[2025-01-22] VITALS (12 sets, daily range): BP systolic 116–157; BP diastolic 59–86
[2025-01-22 06:47] LABS: Hematocrit 34.8 % (37.0-47.0); Hemoglobin 11.3 g/dL (12.0-16.0); Mean Corp Hgb Conc. 32.5 g/dL (33.0-37.0); Mean Corpuscular Volume 87.7 fL (81.0-99.0); Nucleated Red Blood Cells % 0 %; Platelet Count 179 10^3/uL (130-400); Red Cell Dist. Width 12.5 % (11.5-14.5)
[2025-01-22 07:24] LABS: ALT (SGPT) 735 U/L (0-35); AST (SGOT) 349 U/L (14-36); Albumin 3.8 g/dl (3.5-5.0); Alkaline Phosphatase 451 U/L (38-126); Blood Urea Nitrogen 10 mg/dl (7-17); Calcium 9.1 mg/dl (8.4-10.2); Carbon Dioxide 29 mmol/L (22-30); Chloride 105 mmol/L (98-107); Estimated Creatinine Clearance 55 ml/min; Glucose 128 mg/dl (70-99); Magnesium 2.0 mg/dl (1.6-2.3); Potassium 4.3 mmol/L (3.5-5.1); Sodium 138 mmol/L (135-145); Total Protein 6.3 g/dl (6.3-8.2); eGFR > 60.00
--- NOTE | 2025-01-22 11:13 | PN.CDI ---
CDI
- -
CDI:
Physician Documentation Request
Admit Date: 01/18/25 16:59
Dear Doctor Radha,
Please review the following and provide your response in the progress notes.
Clinical Indicators:
The diagnosis of Streptococcus agalactiae was included in the signed UC 01/18
Please indicate in your progress notes if you are in agreement that the above diagnosis is valid for this patient:
____ - UTI is a valid diagnosis (Please include it in your progress notes)
____ - UTI is not a valid diagnosis for this patient
____ - UTI is not yet confirmed but remains a suspected condition
____ - Other
Use of terms such as suspected, likely, concern for, or probable are acceptable for a diagnosis that is being evaluated, monitored or treated as if it exists and can be coded in the inpatient setting, when documented at the time of discharge.
Thank you,
Cinthya Mann RN
CDI Specialist
Please use your independent medical judgment in providing your response.
--- NOTE | 2025-01-22 13:35 | W.PN.HOSP.TC ---
Today's Communication/Plan
-
ERCP/EUS today
Assessment / Plan
Assessment / Plan
Impression:
Patient is a 69 y/o female past medical history of asthma, hyperlipidemia, GERD and prior episode of pancreatitis who was sent to the emergency department due to elevated LFTs. Patient was initially admitted to the hospital back in October 2024 with
pancreatitis thought to be related to alcohol. Since that time she has avoided alcohol and has been following a low fat diet. Over the past few weeks she has developed dark urine and posada colored stools. Patient reports an occasional abdominal
twinge but denies significant pain, nausea or vomiting,
Ultrasound abdomen showed :
1. Cholelithiasis/gallbladder sludge without sonographic evidence for acute cholecystitis.
2. Common bile duct dilatation, new from prior CT. Choledocholithiasis or other obstructing cause not excluded. Consider further evaluation with dedicated MRI/MRCP abdomen without and with gadolinium contrast, as clinically indicated
admitted for further management.
GI/surgery consulted.
MRCP shows:
There is a 2.8 x 1.9 cm hypoenhancing lesion within the pancreatic head which likely represents malignancy, less likely necrosis. There is associated mild edema along the pancreas which is likely some mild superimposed pancreatitis. This mass abuts
the superior mesenteric vein which is severely narrowed at the level of the lesion. Consider US/FNA for further evaluation.
Biliary duct dilation extending to the level of the pancreatic lesion. There is no evidence of choledocholithiasis.
There is mild pericholecystic free fluid, possibly reactive given the recent negative abdominal ultrasound.
Scattered hepatic cysts.
Discussed results with patient and at bedside, reviewed by GI, for ERCP/EUS tomorrow with FNA for the mass.
Assessment/plan:
Pancreatic head mass /acute pancreatitis.
Transaminitis.
2.8 x 1.9 cm hypoenhancing lesion within the pancreatic head which likely represents malignancy, less likely necrosis. There is associated mild edema along the pancreas which is likely some mild superimposed pancreatitis. This mass abuts the
superior mesenteric vein which is severely narrowed at the level of the lesion.
GI consulted
Surg signed off
EUS/ERCP, FNA attempted 01/21 - The bile duct could not be cannulated with the short-nosed traction sphincterotome.
Attempt EUS/ERCP again today
Can f/u with surg onc here or outpatient depending on results
Asthma, no acute exacerbation
-Continue Singulair
Hyperlipidemia
-Hold statin
GERD
-Continue Pepcid
Leukopenia.
Monitor CBC
CODE STATUS: Full code
DVT prophylaxis: Lovenox
Diet: NPO for procedure
Family communication: Discussed with at bedside
Disposition: ERCP/EUS/ FNA in am
Total time spent on today's encounter was 51 minutes which included time spent in counseling the patient/family regarding diagnosis and treatment plan as listed above, goals of care, and symptom management. Case was discussed with nursing staff,
specialists, and care coordinators/case management. All labs and imaging personally reviewed by me. Remainder the time spent in detailed review of previous records, lab data, imaging, and other medical provider documentation.
Anticipated Discharge: 24 - 48 hours
Subjective/Interval History
-
Date of Service: January 22, 2025
Going for repeated ERCP again
Objective Data
-
Labs:
Laboratory Results
01/22/25
05:59
WBC 4.9
Hgb 11.3 L
Hct 34.8 L
Plt Count 179
Sodium 138
Potassium 4.3
Chloride 105
Carbon Dioxide 29
BUN 10
Creatinine 0.8
Glucose 128 H
Calcium 9.1
Total Bilirubin 5.6 H
AST 349 H
ALT 735 H*
Alkaline Phosphatase 451 H
Vital Signs:
Vital Signs
Temp Pulse Resp BP Pulse Ox
98.0 F 64 18 141/72 99
01/22/25 11:25 01/22/25 11:25 01/22/25 11:25 01/22/25 11:25 01/22/25 11:25
I&O
01/21/25 01/22/25 01/23/25
06:59 06:59 06:59
Intake Total 1020 / 1020 50 / 50
Balance 1020 / 1020 50 / 50
Review of Systems
-
History Source: Patient
All other systems: Not reviewed unless documented
Data Reviewed
-
Ultrasound: Report Reviewed by me
MRI: Report Reviewed by me
Medical Tests (Nuc Med, Echo etc): Report Reviewed by me
--- NOTE | 2025-01-22 16:03 | CM ---
Chart reviewed and work up in progress, plan is to home with spouse when stable.
Plan; Home no needs.
[2025-01-22] MEDS: LOVENOX SC (21:16)
[2025-01-22] MEDS: DILAUDID 0.25 MG IV (21:18)
[2025-01-22] MEDS: SINGULAIR 10 MG PO (21:18)
[2025-01-22] MEDS: PEPCID 40 MG PO (21:19)
[2025-01-23 04:05] VITALS: BP 149/70
[2025-01-23 07:20] VITALS: BP 137/71
[2025-01-23 09:30] LABS: AST (SGOT) 374 U/L (14-36); Albumin 4.4 g/dl (3.5-5.0); Alkaline Phosphatase 525 U/L (38-126); Blood Urea Nitrogen 17 mg/dl (7-17); Calcium 9.7 mg/dl (8.4-10.2); Carbon Dioxide 25 mmol/L (22-30); Chloride 104 mmol/L (98-107); Estimated Creatinine Clearance 48 ml/min; Glucose 105 mg/dl (70-99); Potassium 4.7 mmol/L (3.5-5.1); Sodium 139 mmol/L (135-145); Total Protein 7.2 g/dl (6.3-8.2); eGFR > 60.00
[2025-01-23] MEDS: TYLENOL 650 MG PO (09:45)
[2025-01-23 09:51] LABS: ALT (SGPT) 831 U/L (0-35)
[2025-01-23 11:50] VITALS: BP 147/68
--- NOTE | 2025-01-23 12:30 | W.PN.HOSP.TC ---
Addendum entered and electronically signed by Sukumar Garcia MD 01/25/25 15:35:
UTI is not a valid diagnosis for this patient
Asymptomatic Bacteruria
Addendum entered and electronically signed by Sukumar Garcia MD 01/24/25 16:49:
[id number]
Original Note:
Today's Communication/Plan
-
LFD
F/u Adv Endo in 3 months
F/u Pancreatic Surgeon and Oncologist [facility]
F/u Labs in 1 week
Assessment / Plan
Assessment / Plan
Impression:
Patient is a 69 y/o female past medical history of asthma, hyperlipidemia, GERD and prior episode of pancreatitis who was sent to the emergency department due to elevated LFTs. Patient was initially admitted to the hospital back in October 2024 with
pancreatitis thought to be related to alcohol. Since that time she has avoided alcohol and has been following a low fat diet. Over the past few weeks she has developed dark urine and posada colored stools. Patient reports an occasional abdominal
twinge but denies significant pain, nausea or vomiting,
Ultrasound abdomen showed :
1. Cholelithiasis/gallbladder sludge without sonographic evidence for acute cholecystitis.
2. Common bile duct dilatation, new from prior CT. Choledocholithiasis or other obstructing cause not excluded. Consider further evaluation with dedicated MRI/MRCP abdomen without and with gadolinium contrast, as clinically indicated
admitted for further management.
GI/surgery consulted.
MRCP shows:
There is a 2.8 x 1.9 cm hypoenhancing lesion within the pancreatic head which likely represents malignancy, less likely necrosis. There is associated mild edema along the pancreas which is likely some mild superimposed pancreatitis. This mass abuts
the superior mesenteric vein which is severely narrowed at the level of the lesion. Consider US/FNA for further evaluation.
Biliary duct dilation extending to the level of the pancreatic lesion. There is no evidence of choledocholithiasis.
There is mild pericholecystic free fluid, possibly reactive given the recent negative abdominal ultrasound.
Scattered hepatic cysts.
Discussed results with patient and at bedside, reviewed by GI, for ERCP/EUS tomorrow with FNA for the mass.
Assessment/plan:
Pancreatic head mass /acute pancreatitis.
Transaminitis.
2.8 x 1.9 cm hypoenhancing lesion within the pancreatic head which likely represents malignancy, less likely necrosis. There is associated mild edema along the pancreas which is likely some mild superimposed pancreatitis. This mass abuts the
superior mesenteric vein which is severely narrowed at the level of the lesion.
GI consulted
Surg signed off
EUS/ERCP, FNA attempted 01/21 - The bile duct could not be cannulated with the short-nosed traction sphincterotome.
-EUS/ERCP 01/22 - - One plastic stent was placed into the right hepatic duct. One plastic stent was placed into the right hepatic duct. The stenosed segment of lower common bile duct was successfully dilated. A biliary sphincterotomy was performed.
The common bile duct was severely dilated. 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 The stricture was malignant appearing. The major papilla appeared to be ulcerated
-Engaged with Pancreatic Surgeon at [facility]; F/u Onc outpatient
Asthma, no acute exacerbation
-Continue Singulair
Hyperlipidemia
-Hold statin
GERD
-Continue Pepcid
Leukopenia.
Monitor CBC
CODE STATUS: Full code
DVT prophylaxis: Lovenox
Diet: LFD
Family communication: Discussed with at bedside
More than 30 minutes spent in discharge including
Final examination of the patient
Summarizing hospital stay
Instructions for continuing care to all relevant caregivers
Preparation of discharge records, prescriptions, and referral forms
Total time spent (in minutes): 36
Anticipated Discharge: Today
Subjective/Interval History
-
Date of Service: January 23, 2025
Slightly improved, stool more brown, urine becoming back to normal
Objective Data
-
Labs:
Laboratory Results
01/23/25
07:34
Sodium 139
Potassium 4.7
Chloride 104
Carbon Dioxide 25
BUN 17
Creatinine 0.9
Glucose 105 H
Calcium 9.7
Total Bilirubin 5.1 H
AST 374 H
ALT 831 H*
Alkaline Phosphatase 525 H
Vital Signs:
Vital Signs
Temp Pulse Resp BP Pulse Ox
98.4 F 59 16 147/68 98
01/23/25 11:50 01/23/25 11:50 01/23/25 11:50 01/23/25 11:50 01/23/25 11:50
I&O
01/22/25 01/23/25 01/24/25
06:59 06:59 06:59
Intake Total 50 / 50 50 / 50
Balance 50 / 50 50 / 50
Review of Systems
-
History Source: Patient
All other systems: Not reviewed unless documented
Physical Exam
-
General: Well Developed, Well Nourished, No Apparent Distress and Comfortable
HEENT: Normocephalic, Atraumatic, Moist Mucous Membranes, No Ptosis, PERRLA and Nose Appears Normal
Respiratory: Clear to Auscultation and Non Labored Respirations
Cardiac: Regular Rhythm and S1/S2
Breast: Deferred by me
GI: Soft, Nondistended and Normal Bowel Sounds
Genito-urinary: No Costovertebral Tender
Musculoskeletal: No Clubbing, No Cyanosis and No Edema
Skin: Warm
Neuro: Awake, Alert, Oriented, AO x 3 and No Motor Deficits
Psych: Calm
Data Reviewed
-
Ultrasound: Report Reviewed by me
MRI: Report Reviewed by me
Medical Tests (Nuc Med, Echo etc): Report Reviewed by me
--- NOTE | 2025-01-23 12:35 | W.DS.TRANS ---
DC Summary - Lvn Lpn
-
Discharge Instructions:
Discharge Diagnosis/Procedures biliary obstruction from pancreatic head mass
Biliary obstruction
transaminitis
Diet Low Fat
Blood Work cbc and cmp with pcp/oncology in 1 week
Others Tests as per oncology/pancreatic surgeon/GI outpt
Instructions:
Stand-Alone Forms:
Changes to Home Medications: Yes
Discharge Medications:
DC Medications w/original date entered in [facility]
atorvastatin 10 mg tablet 10 mg PO QPM High Cholesterol 03/15/14
Held on 01/23/25. Instructions: Resume on 04/03/25. until cleared by GI
montelukast 10 mg tablet 10 mg PO HS Allergies 03/15/14
famotidine 40 mg tablet (Pepcid) 40 mg PO HS Gastrointestinal Issue 01/18/25
acetaminophen 325 mg tablet 650 mg (2 x 325 mg) PO Q4HPRN PRN mild pain/ fever>100.5F #0 tabs 01/23/25
Home Medication Changes
acetaminophen 325 mg tablet 650 mg (2 x 325 mg) PO Q4HPRN PRN mild pain/ fever>100.5F #0 tabs 01/23/25
Pending Results: No
--- NOTE | 2025-01-23 12:54 | CM ---
CM following re: discharge planning.
Reviewed pt's chart, met with pt and pt's at bedside.
Discharge order noted. Pt is aware, expressed her agreement with discharge. IMM reviewed, placed on chart, pt has a copy.
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
No after care VN needs identified.
D/c plan: home no needs. to transport.
== END 2025-01-23 13:33 | disposition home or self-care (01) | DRG 435 ==
LOC: 2 SOUTH 16:59
PROVIDERS: General Practice; Internal Medicine Gastroenterology; Nurse Practitioner Adult Health; Physician Assistant; Physician Assistant Medical; ADMITTING PHYSICIAN Hospitalist; ATTENDING PHYSICIAN Internal Medicine; CONSULT PHYSICIAN Internal Medicine; CONSULT PHYSICIAN Surgery; EMERGENCY PHYSICIAN Emergency Medicine; FAMILY PHYSICIAN Physician Assistant
PROC: 0FJB8ZZ Inspection of Hepatobiliary Duct, Via Natural or Artificial Opening Endoscopic (ICD-10-PCS; 2025-01-21)
PROC: 0F758DZ Dilation of Right Hepatic Duct with Intraluminal Device, Via Natural or Artificial Opening Endoscopic (ICD-10-PCS; 2025-01-22)
DX: C25.0 Malignant neoplasm of head of pancreas (principal); K83.1 Obstruction of bile duct; J45.909 Unspecified asthma, uncomplicated; K21.9 Gastro-esophageal reflux disease without esophagitis; E78.00 Pure hypercholesterolemia, unspecified; D72.819 Decreased white blood cell count, unspecified; Z87.891 Personal history of nicotine dependence; Z86.0100 Personal history of colon polyps, unspecified; Z90.710 Acquired absence of both cervix and uterus
CPT/HCPCS: 36415; 74183; 74330; 76000; 76705; 80053; 81003; 81015; 82150; 82787; 83615; 83690; 83735; 85025; 85027; 85610; 86301; 86705; 86706; 86709; 86803; 87077; 87086; 87147; 87340; 88172; 88173; 88177; 88305; 88342; 93005; 93306; 99284; A9575; C1726; C1769; C2625

== ENCOUNTER → 2025-02-02 08:24 | Outpatient (REF) | payer MEDICARE, SELFPAY ==
[2025-02-02 08:55] LABS: Hematocrit 33.2 % (37.0-47.0); Hemoglobin 11.2 g/dL (12.0-16.0); Mean Corp Hgb Conc. 33.7 g/dL (33.0-37.0); Mean Corpuscular Volume 87.1 fL (81.0-99.0); Nucleated Red Blood Cells % 0 %; Platelet Count 370 10^3/uL (130-400); Red Cell Dist. Width 12.0 % (11.5-14.5)
[2025-02-02 09:55] LABS: ALT (SGPT) 54 U/L (0-35); AST (SGOT) 24 U/L (14-36); Albumin 3.2 g/dl (3.5-5.0); Alkaline Phosphatase 221 U/L (38-126); Blood Urea Nitrogen 11 mg/dl (7-17); Calcium 9.0 mg/dl (8.4-10.2); Carbon Dioxide 30 mmol/L (22-30); Chloride 98 mmol/L (98-107); Glucose 199 mg/dl (70-99); Lipase 504 U/L (23-300); Potassium 4.9 mmol/L (3.5-5.1); Sodium 136 mmol/L (135-145); Total Protein 6.1 g/dl (6.3-8.2); eGFR > 60.00
== END ==
LOC: REG 08:24
PROVIDERS: ATTENDING PHYSICIAN Physician Assistant
DX: C25.0 Malignant neoplasm of head of pancreas (principal); K21.9 Gastro-esophageal reflux disease without esophagitis; J30.2 Other seasonal allergic rhinitis; J45.991 Cough variant asthma; Z09 Encounter for follow-up examination after completed treatment for conditions other than malignant neoplasm; R74.01 Elevation of levels of liver transaminase levels
CPT/HCPCS: 36415; 80053; 83690; 85025

== ENCOUNTER → 2025-02-08 12:07 | Outpatient (REF) | payer MEDICARE, SELFPAY | LOC: RAD 12:07 | PROVIDERS: ATTENDING PHYSICIAN Internal Medicine Hematology & Oncology; FAMILY PHYSICIAN Physician Assistant | DX: C25.0 Malignant neoplasm of head of pancreas (principal) | CPT/HCPCS: 71260; 74177; Q9967 ==

== ENCOUNTER 2025-02-11 20:29 | Inpatient (IN) | payer MEDICARE, SELFPAY ==
[2025-02-11 15:58] VITALS: BP 102/71
[2025-02-11 16:16] VITALS: BMI 20.2
--- NOTE | 2025-02-11 16:31 | ED.GENMED ---
History of Present Illness
General
Chief Complaint: Abdominal Pain
Source: patient and spouse
Exam Limitations: none
Time Seen by Provider: 02/11/25 16:12
Nursing documentation reviewed up to this point in time: agreed with
History of Present Illness
History of Present Illness:
Patient is a 70-year-old female with recent diagnosis of pancreatic CA s/p biliary stent placements presenting to the emergency department with concerns of abscess noted on outpatient CT. Patient was discharged from hospital on 01/23/2025 and has
since been seen by oncology at [place], as well as [place]. She apparently had regular scheduled lab work and CT scan of her abdomen planned prior to initiating chemotherapy.
CT scan performed on Tuesday showed possible abscess collection between biliary stents and proximal pancreatic body. Patient's GI doctor, Dr. Moyer who placed the stents referred her to the emergency department for admission, IR consult, and IV
antibiotics. He will likely also plan to repeat ERCP and exchange stents.
Patient denies any recent fever or chills. She has had very intermittent upper abdominal 'tightness' since prior to most recent hospitalization. No new abdominal pain. No nausea/vomiting. She has been having loose stools and little appetite.
Past History
Past History
ED Past Medical History: Asthma, GERD and Hypercholesterolemia; Negative HTN, IDDM or NIDDM
Social History
Tobacco: Non-smoker
Family History
Family History: CAD
Review of Systems
Review of Systems
Allergies reviewed?: Yes
All Other Systems: ROS reviewed and negative except as documented in HPI and ROS
Phy Exam
Physical Exam
Physical Exam:
Vitals: Patient's vital signs are stable. Afebrile.
General: Patient is well appearing, no acute distress. Nontoxic appearing.
Skin: Warm and dry, no rashes or lesions
Head: Normocephalic, atraumatic
Eyes: Sclera nonicteric. EOMs intact. No nystagmus.
Throat: Protecting airway
Neck: Normal ROM, no cervical spine tenderness, no meningismus
Cardiac: Regular rate and rhythm, no murmurs.
Pulm: Normal respiratory effort, no wheezes, rales, rhonchi heard on exam
Abdomen: Abdomen soft and nontender. No rebound tenderness or guarding.
Extremities: No evidence of cyanosis or edema
Neuro: AAOx3. Grossly intact.
Psychiatric: Normal affect.
Course
Orders/Labs/Results
Orders:
Orders
02/11/25 16:26
Complete Blood Count/With Diff Urgent
Comprehensive Metabolic Panel Urgent
Lipase Urgent
Urinalysis Reflex To Culture Urgent
Date Specimen was Collected: 02/11/25
Time Specimen was Collected: 16:23
Urine Microscopic Reflex Cult Urgent
Urine Culture Urgent
CARLOS Source: U
Specimen Description:
Date Specimen was Collected: 02/11/25
Time Specimen was Collected: 16:23
02/11/25 16:48
0.9% Sodium Chloride 1000 ml [Nss] 1,000 ml IV BOLUS
Piperacillin/Tazo 3.375 Gram [Zosyn] 3.375 gram in 50 ml IV NOW
02/11/25 17:15
Blood Culture Q30M
CARLOS Source: Blood/Venous
Specimen Description:
Blood Culture Q30M
CARLOS Source: Blood/Venous
Specimen Description:
02/11/25 19:56
Admit/Transfer Patient As Directed
Co-Sign Provider:
Level of Care: Inpatient admission
Assign to:: Medical/Surgical
Physician / Group: Jason Bingham
Diagnosis: Intra-abdominal abscess post-procedure, Pancreatic cancer
Reason for Hospitalization: Intra-abdominal abscess post-procedure, Pancreatic cancer
Expected length of stay greater than two midnights?: Yes
ELOS- Estimated Length of Stay in days: 3
I certify the patient meets the requirements for IP care: Yes
Code Status As Directed
Resuscitation Status: Full Code
PRN Pain Medication Management As Directed
May give lesser potent ordered pain med per pt: Yes
preference::
Protocol:: Medication orders for pain may be administered in a
manner that supports deferring to patient preference
when the pt is:
- Requesting an ordered lesser potent pain medication.
Least to most potent pain medications are defined
as: acetaminophen < NSAID < tramadol < opioids
(morphine, oxycodone, hydromorphone).
- Requesting a lesser dose of the same medication IF
ORDERED.
- Requesting a less intrusive route of administration
if both routes are prescribed by the provider (PO <
IV).
02/11/25 21:18
Acetaminophen [Tylenol] 650 mg PO Q4HPRN PRN
Oxycodone [Roxicodone] 5 mg PO Q6HPRN PRN severe pains
02/11/25 21:18
Consult Interventional Radiology [IRAD CONSULT] Routine
Consulting Provider: Anurag Sarabia
Was physician already notified: Yes
Procedure being ordered, including laterality if: drainage of abscess formation between stents and
applicable: pancreatic body
Acknowledgement that appropriate orders are entered: N/A
GASTROINTESTINAL CONSULT Routine
Consulting Provider: Felicia Bo
Was physician already notified: Yes
INFECTIOUS DISEASE CONSULT Routine
Consulting Provider: Virginia Snell
Was physician already notified: Yes
Activity As Directed
Activity Level: Ambulate
Intake/ Output As Directed
Frequency: Per unit guidelines
Vital Signs As Directed
Frequency: Per unit guidelines
Weight As Directed
Frequency: Once
Comment: on admission
DX Deep Vein Thrombosis Video Routine
02/11/25 22:00
Ertapenem [Invanz] 1,000 mg 0.9% Sodium Chloride [Nss] 50 ml IV Q24H
Famotidine [Pepcid] 40 mg PO HS
Montelukast Sodium [Singulair] 10 mg PO HS
02/12/25 Breakfast
NPO
Allow oral meds: Yes
Allow clear liquids: 4hrs prior to procedure
Comment: may have unrestricted clear liquid up to 4 hrs prior to scheduled procedure
Complete Blood Count/No Diff IN AM
Comprehensive Metabolic Panel IN AM
02/12/25 07:30
Pancrelipase [Zenpep Delayed Release Capsule] 1 capsule PO AC
02/12/25 18:00
Enoxaparin Sodium [Lovenox] 40 mg SC QPM
Abnormal Lab Results
02/11/25
16:26
RBC 4.02 L 10^6/uL
(4.20-5.40)
Hgb 11.7 L g/dL
(12.0-16.0)
Hct 34.6 L %
(37.0-47.0)
Plt Count 498 H 10^3/uL
(130-400)
Abs Immat Gran (auto) 0.1 H 10^3/uL
(0-0.05)
Absolute Neuts (auto) 8.5 H 10^3/uL
(1.4-6.5)
Immature Gran % 0.7 H %
(0-0.5)
Neutrophils % 80.3 H %
(42.2-75.2)
Lymphocytes % 13.3 L %
(20.5-51.1)
BUN 25 H mg/dl
(7-17)
Glucose 212 H mg/dl
(70-99)
ALT 37 H U/L
(0-35)
Urine Ketones 1+ A
(Negative)
Ur Occult Blood Reflex 1+ A
(Negative)
Leukocyte Esterase Rfl 3+ A
(Negative)
Urine Bacteria (Reflex) Moderate A
(Negative)
Urine Glucose 2+ A
(Negative)
Urine Albumin (Reflex) 2+ A
(Neg - Trace)
02/11/25 16:26
02/11/25 16:26
Vital Signs
Initial and Last Documented VS:
Initial Vital Signs
Temp Pulse Resp BP Pulse Ox
97.9 F 74 16 102/71 98
02/11/25 15:58 02/11/25 15:58 02/11/25 15:58 02/11/25 15:58 02/11/25 15:58
Last Documented Vital Signs
Temp Pulse Resp BP Pulse Ox
98.1 F 64 18 106/57 97
02/11/25 23:00 02/11/25 23:00 02/11/25 23:00 02/11/25 23:00 02/11/25 23:00
MDM/Problems Addressed
Differential Diagnosis Includes:
Not limited to: Intra-abdominal abscess, biliary obstruction, progression of disease, etc.
MDM/Problems Addressed:
70-year-old female presents to the Emergency Department for admission, referred by her outpatient Administrative Sales Assistant. She has a recent diagnosis of pancreatic cancer and underwent biliary stent placement. Outpatient evaluation revealed leukocytosis
and a CT scan concerning for a possible new intra-abdominal abscess.
On presentation, the patient denies fever, vomiting, or severe abdominal pain. She is hemodynamically stable. Physical examination is unremarkable, with a benign abdominal exam. Repeat laboratory studies obtained in the ED show no leukocytosis.
Comprehensive metabolic panel, lipase, and other labs are within normal limits. Blood cultures were obtained.
CT imaging from three days ago was reviewed; no acute changes noted since that time, and there is no indication for repeat imaging today. IR was contacted and will review existing imaging to determine if the suspected abscess is drainable.
The patient was given IV fluids and initiated on empiric broad-spectrum IV antibiotics in the ED. Given her recent pancreatic cancer diagnosis and imaging findings concerning for possible abscess, she is being admitted to the hospital for further
management, including continued IV antibiotics and evaluation by IR and GI.
Chronic conditions affecting care:
Recently diagnosed pancreatic cancer with biliary stent placement
Acute Exacerbation and/or Progression of Chronic Illness:
N/A
*Pulse Oximetry
SaO2: 98
Oxygen Mode of Delivery: Room air
Patient hypoxic: no
*EKG
Interpreted by ED Provider?: NA
*Set Up Mechanic Heading Machines Interpretation
Rate: Set Up Mechanic Heading Machines- N/A
*Critical Care Note
Total Time (30-74mins, 75-104mins- exclusive of procedures): Not Applicable
Data Reviewed
Review of Other/Old Records Reveals: Radiology Studies (Reviewed CT scan from 02/08/2025 which reveals new possible abscess formation between biliary stents and proximal pancreatic body)
Source: previous radiology exam
Patient Management
Discussion with other providers: Hospitalist and Electrical Logging Operator (Case discussed with IR)
Escalation/DeEscalation of care consider admission/obs:
Admit for IV antibiotics, IR and GI evaluation for likely ERCP and stent replacement
ED Attending Note
-
Portions of this chart may have been created with voice recognition software.� Occasional wrong word or��sound alike� substitutions may have occurred due to the inherent limitations of voice recognition software.
Discharge Plan
Departure
Patient Disposition: Admit
Date of Disposition: 02/11/25
Time of Disposition: 17:29
Presentation/result/management discussed w/ accepting MD/DO: Hospitalist
Discharge Problem:
Intra-abdominal abscess post-procedure, Pancreatic cancer
Interventions
Interventions:
*Risk Screen - Suicide Last Done: 02/11/25 15:58
*General Assessment Last Done: 02/11/25 15:58
*Neglect/Abuse Screening Last Done: 02/11/25 15:58
*ED- Fall Risk Assessment Last Done: 02/11/25 16:16
*ED COVID-19 Vaccine History Last Done: 02/11/25 16:16
*ED Influenza Vaccine History Last Done: 02/11/25 16:16
*Nursing Disposition Last Done: 02/11/25 21:10
NF-Ogjhuy-Ibxjeilxpn Assessment Last Done: 02/11/25 16:16
Discharge Date and Time
Discharge Date/Time: 02/11/25 21:10
[2025-02-11 16:38] LABS: Hematocrit 34.6 % (37.0-47.0); Hemoglobin 11.7 g/dL (12.0-16.0); Mean Corp Hgb Conc. 33.8 g/dL (33.0-37.0); Mean Corpuscular Volume 86.1 fL (81.0-99.0); Nucleated Red Blood Cells % 0 %; Platelet Count 498 10^3/uL (130-400); Red Cell Dist. Width 11.8 % (11.5-14.5)
[2025-02-11 16:53] LABS: Urine Character Clear (Clear)
[2025-02-11 17:01] LABS: ALT (SGPT) 37 U/L (0-35); AST (SGOT) 26 U/L (14-36); Albumin 3.5 g/dl (3.5-5.0); Alkaline Phosphatase 121 U/L (38-126); Blood Urea Nitrogen 25 mg/dl (7-17); Calcium 9.1 mg/dl (8.4-10.2); Carbon Dioxide 29 mmol/L (22-30); Chloride 100 mmol/L (98-107); Estimated Creatinine Clearance 61 ml/min; Glucose 212 mg/dl (70-99); Lipase 102 U/L (23-300); Potassium 4.0 mmol/L (3.5-5.1); Sodium 135 mmol/L (135-145); Total Protein 6.7 g/dl (6.3-8.2); eGFR > 60.00
[2025-02-11] MEDS: NSS 1000 IV (17:01)
[2025-02-11 17:07] LABS: Urine Squamous Cell >30 /LPF (Few)
[2025-02-11 17:08] LABS: Urine Red Blood Cell 0-2 /HPF (0-2)
[2025-02-11] MEDS: ZOSYN 50 IV (17:08)
[2025-02-11 19:05] VITALS: BP 108/70
--- NOTE | 2025-02-11 19:05 | W.PN.UPDATE ---
Update Note
Progress Note Update
This note serves as an addendum to the H&P by commercial artist lettering Luis Felipe Borjas
HPI�
70F Recently Dxed CA pancreas s/p biliary stent seen at ER:
- DC'd on 01/23/2025 - f/u by oncology at [facility]
- Scheduled lab work and CT AP planned prior to initiating chemotherapy.
- Current OP CT on 02/08/25 concerns for abscess sent to ER
02/08/25 CT AP :
- possible abscess collection between biliary stents and proximal pancreatic body.
- GI Dr. Moyer who placed the stents referred her to ER for admission, IR consult, and IV ABX
- will likely also plan to repeat ERCP and exchange stents.
ROS:
denies any recent fever or chills.
No new abdominal pain. No nausea/vomiting. She has been having loose stools and little appetite.
Relevant VS
02/11/25
15:58
Temp 97.9 F
Pulse 74
Resp Rate 16
Blood pressure 102/71
SaO2 98
Oxygen Mode of Delivery Room air
PE
Gen: Not toxic
HEENT: anicteric
Neck: supple
Lungs: CTA
Cor: RRR
Abdomen:�soft NTD
DEVELOPMENTAL BEHAVIORAL PHYSICIAN: AAO3 , NFND
MS: no edema
Psych: Nl mood
Relevant Data�
02/02/25 02/11/25
08:33 16:26
WBC 18.7 H 10.6
Hgb 11.2 L 11.7 L
Plt Count 370 498 H
02/11/25
16:26
BUN 25 H
Creatinine 0.7
eGFR > 60.00
Glucose 212 H
Total Bilirubin 0.9
ALT [address] Chest/abd/pel W Iv Cont
1. Pancreatic neoplasm remonstrated.
Associated narrowing of the distal main portal vein/portal splenic confluence.
Small amount of tumor thrombus within the distal main portal vein.
2. New possible abscess formation between the biliary stents and proximal pancreatic body measuring up to 2.0 x 2.0 x 2.5 cm.
Last hospitalist admission: 01/18/2025 - 01/23/2025
DC DXS:
1. Biliary obstruction from pancreatic head mass.
2. Biliary obstruction.
3. Transaminitis.
ASSESSMENT & PLAN
New possible abscess formation between the biliary stents and proximal pancreatic body
- measuring up to 2.0 x 2.0 x 2.5 cm.
- IV Ertapenam in place of Zosyn for now
- Clear and IVF
- GI Dr Moyer will likely also plan to repeat ERCP and exchange stents.
- IR consult for aspiration and Cx
- ID consult for aprorpate IV ABx
Recently Dxed Pancreatic CA
- and [facility] are following
- Has plan for PORT on 02/15/25Tuesday - would hold off till ID clearance
HX Asthma
-no acute flare
- on Singulair
Hyperlipidemia
- c/w statin
GERD
- c/w Pepcid
DVT Px: SQH
Full code
IP MS
--- NOTE | 2025-02-11 19:09 | HPS.HSE ---
Family Physician
-
Family Physician: Trini Ingram
Chief Complaint
-
possible abscess collection between biliary stents and proximal pancreatic body
History of Present Illness
Patient is a 70-year-old female with past medical history significant for pancreatic cancer, asthma, hyperlipidemia and GERD who presented to [facility] ED for evaluation at request of Dr. Moyer, GI. Patient had outpatient CT scan completed that showed
possible abscess collection between biliary stents and proximal pancreatic body. Patient with recent pancreatic cancer during last hospitalization, d/c'ed 01/23/25. Since discharge she has been seen by oncology at [facility], Dr. Bess
and by oncology at [facility]. Patient currently scheduled for port placement Tuesday02/15/25 and first chemo Tuesday02/19/25. She spoke with Dr. Moyer twice today regarding CT findings and he requested she present to ED for in patient admission for IV
antibiotics, Consult to IR and to repeat ERCP to exchange stents. Patient denies any infectious symptoms, fever, chills, cough, shortness of breath, chest pain, nausea, vomiting, constipation, diarrhea or urinary symptoms.
Medical History
Past Medical History
Past Medical History: Reports Other
Additional Past Medical History:
pancreatic cancer
asthma
hyperlipidemia
GERD
Past Surgical History: Reports Other
Additional Past Surgical History:
Hysterectomy
Social History
Tobacco: Non-smoker
Alcohol: Other (No alcohol since prior pancreatitis diagnosis)
Personal:
Living: With Family
Family History
Family History: Not pertinent
Allergies / Home Medications
Allergies reflects when Allergies were last updated in [facility].
Home Medications with original date entered in [facility]
Allergy/Medication List:
Allergies
Allergy/AdvReac Type Severity Reaction Status Date / Time
mold Allergy chest Verified 02/11/25 16:01
tighness
MILDEW Allergy chest Uncoded 02/11/25 16:01
tighness
Home Medications
montelukast 10 mg tablet 10 mg PO HS Allergies 03/15/14
famotidine 40 mg tablet (Pepcid) 40 mg PO HS Gastrointestinal Issue 01/18/25
rohjxy-xwrhlbbc-dydsacz(pork)12,000-38,000-60,000 unit capsule,del rel (Creon) 1 cap PO AC 02/11/25
oxycodone 5 mg tablet 5 mg PO Q6HPRN PRN severe pains 02/11/25
Review of Systems
-
History Source: Patient and Family
Constitutional: Reports No Symptoms
EENT: Reports No Symptoms
Respiratory: Reports No Symptoms
Cardiac: Reports No Symptoms
Abdomen/GI: Reports Other (loose stools and decreased appetite )
: Reports No Symptoms
Musculoskeletal: Reports No Symptoms
Skin: Reports No Symptoms
Neurological: Reports No Symptoms
Endocrine: Reports No Symptoms
Hematologic/Lymphatic: Reports No Symptoms
Psych: Reports No Symptoms
Physical Exam
Vital Signs
Vital Signs
Temp Pulse Resp BP Pulse Ox
97.9 F 74 16 102/71 98
02/11/25 15:58 02/11/25 15:58 02/11/25 15:58 02/11/25 15:58 02/11/25 16:38
Physical Exam
General: Well Developed, Well Nourished, No Apparent Distress, Comfortable and Conversant
HEENT: NormoCephalic, Moist mucous membranes, Nose Appears Normal and Ears Appear Normal
Respiratory: Clear and Non Labored Respirations; No Wheezes, Rales, Rhonchi or Crackles
Cardiac: S1/S2 and Regular Rhythm; No Murmur, Rub, Gallop or Peripheral Edema
GI: Soft, Non Distended, Normal Bowel Sounds and Tender
Musculoskeletal: No Clubbing, No Cyanosis and No Edema
Skin: Warm and IV/Catheter Site
Neuro: Awake and AO x 3
Hematologic/Lymphatic: No Lymphadenopathy
Psych: Calm and Intact Judgment/Insight
Laboratory Results
-
02/11/25 16:26
02/11/25 16:26
Laboratory Results
Total Bilirubin 0.9 mg/dl (0.2-1.3) 02/11/25 16:26
AST 26 U/L (14-36) 02/11/25 16:26
ALT 37 U/L (0-35) H 02/11/25 16:26
Alkaline Phosphatase 121 U/L (38-126) 02/11/25 16:26
Lipase 102 U/L (23-300) 02/11/25 16:26
Data Reviewed
-
CT Scan: Report Reviewed by me (Chest/Abd/Pel (02/08/2025): 1. Pancreatic neoplasm redemonstrated. Associated narrowing of the distal main portal vein/portal splenic confluence. Small amount of tumor thrombus within the distal main portal vein. 2.
New possible abscess formation between the biliary stents and proximal pancreatic )
Lab Data: Labs Reviewed by me
Impression/Plan
-
IMPRESSION/PLAN:
#New possible abscess formation between the biliary stents and proximal pancreatic body
#pancreatic cancer
Chest/Abd/Pel CT (02/08/25): 1. Pancreatic neoplasm redemonstrated. Associated narrowing of the distal main portal vein/portal splenic confluence. Small amount of tumor thrombus within the distal main portal vein.
2. New possible abscess formation between the biliary stents and proximal pancreatic body measuring up to 2.0 x 2.0 x 2.5 cm.
- Admit to med/surg
- Consult IR
- Consult GI
- Consult ID
- NPO at midnight
- IV Ertapenem
- supportive care
#asthma
- continue montelukast
#GERD
- continue famotidine
#hyperlipidemia
- statin on hold since previous admission
Code status: full code
DVT prophylaxis: Lovenox sq
[2025-02-11 21:19] VITALS: BP 134/60; BMI 20.4
[2025-02-11] MEDS: PEPCID 40 MG PO (22:12)
[2025-02-11] MEDS: SINGULAIR 10 MG PO (22:12)
[2025-02-11] MEDS: INVANZ 60 MG IV (22:51)
[2025-02-11 23:00] VITALS: BP 106/57
[2025-02-11] MEDS: ROXICODONE 5 MG PO (23:05)
--- NOTE | 2025-02-12 00:12 | TRANSFER ---
Pt transferred to 3W from ED via stretcher. Pt ambulated to hospital bed. AAOx3, at bedside, oriented to hospital room, call campblel within reach, plan of care ongoing.
[2025-02-12] MEDS: ZENPEP DELAYED RELEASE CAPSULE PO ×3 (07:29→16:52)
[2025-02-12 07:41] VITALS: BP 111/63
[2025-02-12 07:58] LABS: ALT (SGPT) 31 U/L (0-35); AST (SGOT) 24 U/L (14-36); Albumin 2.8 g/dl (3.5-5.0); Alkaline Phosphatase 96 U/L (38-126); Blood Urea Nitrogen 19 mg/dl (7-17); Calcium 8.4 mg/dl (8.4-10.2); Carbon Dioxide 29 mmol/L (22-30); Chloride 105 mmol/L (98-107); Estimated Creatinine Clearance 54 ml/min; Glucose 161 mg/dl (70-99); Potassium 4.4 mmol/L (3.5-5.1); Sodium 137 mmol/L (135-145); Total Protein 5.4 g/dl (6.3-8.2); eGFR > 60.00
[2025-02-12 08:05] LABS: Hematocrit 30.8 % (37.0-47.0); Hemoglobin 9.8 g/dL (12.0-16.0); Mean Corp Hgb Conc. 31.8 g/dL (33.0-37.0); Mean Corpuscular Volume 89.3 fL (81.0-99.0); Red Cell Dist. Width 12.0 % (11.5-14.5)
--- NOTE | 2025-02-12 08:22 | CON.ID ---
Addendum entered and electronically signed by Cecelia Jarquin MD 02/12/25 10:41:
fluid may be accessible via EUS
will hold off on PICC line and setting up home IV antibiotics for the present and follow any cultures that we are able to obtain
Original Note:
Consultation
-
Date/Time Consultation Requested: 02/11/25 21:18
Date/Time Consultation Performed: 02/12/25 8:23
Requesting Provider: Suad HAYES
Performing Provider: Dr Jarquin
Reason for Consultation: possible intraabdominal abscess
Chief Complaint / Past History
Chief Complaint
new possible abscess formation
History of Present Illness
Ms Velez is a 70 year old female with history of recently diagnosed pancreatic cancer who was referred to the ER by her GI, Dr Moyer for an outpatient CT scan showing possible abscess between her biliary stents and the proximal pancreatic body. She
had two plastic stents placed via ERCP 01/22. She is currently scheduled for port placement thursday 02/15 and chemotherapy 02/19/25. Patient denies any symptoms: fever, chills, cough, shortness of breath, chest pain, nausea, vomiting, constipation,
diarrhea or dysuria.
Past History
Additional Past Medical History:
pancreatic cancer
asthma
hyperlipidemia
GERD
Additional Past Surgical History:
Hysterectomy
Allergy History:
mold Allergy (Verified 02/11/25 16:01)
chest tighness
MILDEW Allergy (Uncoded 02/11/25 16:01)
chest tighness
Medications Reviewed: Yes
Social History
Tobacco: Non-Smoker
Alcohol: None
Personal:
Family History
Family History: Not Pertinent
Review of Systems
Review of Systems
Constitutional: Reports No Symptoms
EENT: Reports No Symptoms
Respiratory: Reports No Symptoms
Cardiac: Reports No Symptoms
Abdomen/GI: Reports Other (loose stools and decreased appetite )
: Reports No Symptoms
Musculoskeletal: Reports No Symptoms
Skin: Reports No Symptoms
Neurological: Reports No Symptoms
Endocrine: Reports No Symptoms
Hematologic/Lymphatic: Reports No Symptoms
Psych: Reports No Symptoms
Vital Signs
Temp Pulse Resp BP Pulse Ox
98.3 F 58 14 111/63 98
02/12/25 07:41 02/12/25 07:41 02/12/25 07:41 02/12/25 07:41 02/12/25 07:41
Physical Exam
Physical Exam
Constitutional: No Acute Distress
Cardiovascular: Regular Rate and S1/S2; Negative Murmur or Rub
Pulmonary: Clear and Symmetric; Negative Wheezes, Rales or Rhonchi
Gastrointestinal: Soft, Non Tender, Non Distended and Normal Bowel Sounds
Skin: Warm and Dry; Negative Rash or Jaundice
Lab / Diagnostic Study Results
02/12/25 07:10
02/12/25 07:10
Abs Immat Gran (auto) 0.1 10^3/uL (0-0.05) H 02/11/25 16:26
Absolute Neuts (auto) 8.5 10^3/uL (1.4-6.5) H 02/11/25 16:26
Absolute Lymphs (auto) 1.4 10^3/uL (1.2-3.4) 02/11/25 16:26
Absolute Monos (auto) 0.5 10^3/uL (0.1-0.6) 02/11/25 16:26
Absolute Basos (auto) 0.1 10^3/uL (0-0.2) 02/11/25 16:26
Immature Gran % 0.7 % (0-0.5) H 02/11/25 16:26
Neutrophils % 80.3 % (42.2-75.2) H 02/11/25 16:26
Lymphocytes % 13.3 % (20.5-51.1) L 02/11/25 16:26
Monocytes % 4.5 % (1.7-9.3) 02/11/25 16:26
Eosinophils % 0.7 % (0-6) 02/11/25 16:26
Basophils % 0.5 % (0-2) 02/11/25 16:26
Ur Squamous Epith Cells >30 /LPF (Few) 02/11/25 16:26
Microbiology Results
Micro:
02/11/25 17:15 Blood Culture - Pending
Blood/Venous
02/11/25 17:15 Blood Culture - Pending
Blood/Venous
02/11/25 16:26 Urine Culture - Pending
Urine
Assessment / Plan
Possible Small Intraabdominal Abscess
- somewhat unusual to have no symptoms
- collection is quite small and location not possible to sample percutaneously; may need to have a trial of empiric therapy and serial imaging
- note plans for possible ERCP
- continue ertapenem, add daptomycin; plan two weeks of therapy
- hold statin
- weekly CK
- plan PICC line (ports typically reserved for chemotherapy and not yet placed)
--- NOTE | 2025-02-12 08:23 | CON.GI ---
Addendum entered and electronically signed by Felicia Bo MD 02/12/25 20:26:
I saw and examined the patient.
The resident's note was reviewed and I agree with the note.
Comment: Boo is a 70-year-old female with recent diagnosis of pancreatic cancer in December 2024 when she presented with painless jaundice and also an episode of pancreatitis in October 2024 who is following up with Dr. Bess, was supposed to
initiate chemotherapy this coming week, had CT scan of the chest/abdomen/pelvis prior to starting chemo and noted to have new possible abscess formation between the biliary stents and proximal pancreatic body measuring about 2 x 2.5 cm and was asked
to come to the emergency room. Currently denies any abdominal pain, nausea or vomiting. No fevers or chills. She takes pancreatic enzyme supplements and has not had any postprandial pain. No heartburn or trouble swallowing. She has chronic
erratic bowel habits, more constipation but has not been significant at this time. She did lose 30 pounds since October as she did not change her diet intentionally and has been walking quite a bit. No NSAID use.
Not a daily drinker of alcohol, may have 2-3 drinks in a week. Has not smoked in 30 years and no family history of pancreatic cancer.
She has had ERCP in December [address] Moyer for pancreatic mass compressing on the bile duct, common duct was dilated with a 4 mm balloon dilator, 2 plastic stents placed in the right hepatic duct.
This admission, LFTs were within normal limits without any elevation in bilirubin or alkaline phosphatase.
-? Pancreatic abscess noted on CT scan
She is on ertapenem and daptomycin for the pancreatic abscess that was noted on CT scan.
EUS today did not show any evidence of abscess or visible collections, plastic stents with bile drainage showing patency noted. No intervention done.
Given CT findings, will get MRI of the abdomen with MRCP to evaluate this ? Abscess
Currently on low-fat diet, n.p.o. past midnight for MRI tomorrow.
Will follow-up on the above testing
After the MRI, patient will follow-up with Dr. Arguelles again as outpatient.
Original Note:
Consultation
-
Date/Time Consultation Requested: 02/11/2025; 21:18
Date/Time Consultation Performed: 02/12/2025; 08:30
Requesting Provider: Stella Borjas
Performing Provider: Felicia Bo MD; Zack Hernandez MD
Reason for Consultation: intra-abdominal abscess, pancreatic cancer
Medical History
Chief Complaint / HPI
Chief Complaint: possible abscess
History of Present Illness:
70 yo F PMH pancreatic cancer, asthma, HLD, GERD presenting after completing an outpatient CT scan which disclosed possible abscess between biliary stents and pancreatic body.
She was recently diagnosed with pancreatic cancer and follows with oncology at and [facility].
Patient also communicated srinivasa Moyer from GI and he requested patient be admitted for IV antibiotics, IR evaluation, and then possible repeat ERCP to exchange stents.
She completed the outpatient CT as part of oncology management with preparation for port placement for chemotherapy. She otherwise endorses only intermittently cramping pain that resolves spontaneously in the epigastric region. She reports some
nausea but denies vomiting. She denies any fevers/chils. She reports good appetite with pancreatic enzyme replacement. She denies any significant changes to bowel habits, denies melena or hematochezia.
Other ROS, she denies headaches, chest pain, dyspnea, focal weakness.
Past Medical History
Past Medical History: Asthma, Cancer, GERD and Hypercholesterolemia
Past Surgical History: Gynecological (Hysterectomy)
Social History
Tobacco: Non-Smoker
Alcohol: Other (None since diagnosis of pancreatic cancer)
Living: With Family
Allergies / Home Medications
Allergy/AdvReac Type Severity Reaction Status Date / Time
mold Allergy chest Verified 02/11/25 16:01
tighness
MILDEW Allergy chest Uncoded 02/11/25 16:01
tighness
�Medication �Instructions �Recorded
montelukast 10 mg tablet 10 mg PO HS Allergies 03/15/14
famotidine 40 mg tablet (Pepcid) 40 mg PO HS Gastrointestinal Issue 01/18/25
sabfgd-lafhvxqu-duisqma(pork)12,000-38,000-60,000 1 cap PO AC ENZYME 02/11/25
unit capsule,del rel (Creon)
oxycodone 5 mg tablet 5 mg PO Q6HPRN PRN severe pains 02/11/25
Review of Systems
-
History Source: Patient
Constitutional: Reports Fatigue
EENT: Reports No Symptoms
Respiratory: Reports No Symptoms
Cardiac: Reports No Symptoms
Abdomen/GI: Reports Abdominal Pain (intermittently cramping abdominal pain in epigastric region), Nausea and Other
Musculoskeletal: Reports No Symptoms
Skin: Reports No Symptoms
Neurological: Reports No Symptoms
Vital Signs
Temp Pulse Resp BP Pulse Ox
98.3 F 58 14 111/63 98
02/12/25 07:41 02/12/25 07:41 02/12/25 07:41 02/12/25 07:41 02/12/25 07:41
Physical Exam
Exam
General: Comfortable
HEENT: Other (some scleral icterus appreciated on my exam)
Respiratory: Clear
Cardiac: Other (no murmurs on my exam)
GI: Soft, Non Tender, Non Distended and Normal Bowel Sounds
Musculoskeletal: Edema
Skin: Warm and Other (no jaundice on my exam)
Neuro: AO x 3 and No Motor Deficits
Psych: Calm
Results
WBC 7.0 10^3/uL (4.8-10.8) 02/12/25 07:10
Hgb 9.8 g/dL (12.0-16.0) L 02/12/25 07:10
Hct 30.8 % (37.0-47.0) L 02/12/25 07:10
MCV 89.3 fL (81.0-99.0) 02/12/25 07:10
Plt Count 498 10^3/uL (130-400) H 02/11/25 16:26
Absolute Neuts (auto) 8.5 10^3/uL (1.4-6.5) H 02/11/25 16:26
Sodium 137 mmol/L (135-145) 02/12/25 07:10
Potassium 4.4 mmol/L (3.5-5.1) 02/12/25 07:10
Chloride 105 mmol/L (98-107) 02/12/25 07:10
Carbon Dioxide 29 mmol/L (22-30) 02/12/25 07:10
BUN 19 mg/dl (7-17) H 02/12/25 07:10
Creatinine 0.8 mg/dL (0.6-1.0) 02/12/25 07:10
Calcium 8.4 mg/dl (8.4-10.2) 02/12/25 07:10
Total Bilirubin 0.5 mg/dl (0.2-1.3) 02/12/25 07:10
AST 24 U/L (14-36) 02/12/25 07:10
ALT 31 U/L (0-35) 02/12/25 07:10
Alkaline Phosphatase 96 U/L (38-126) 02/12/25 07:10
Lipase 102 U/L (23-300) 02/11/25 16:26
Diagnostic Image Results:
CT Chest/Abdomen/Pelvis w IV contrast 02/08/2025
IMPRESSION:
1. Pancreatic neoplasm redemonstrated. Associated narrowing of the distal main portal vein/portal splenic confluence. Small amount of tumor thrombus within the distal main portal vein.
2. New possible abscess formation between the biliary stents and proximal pancreatic body measuring up to 2.0 x 2.0 x 2.5 cm.
Prior GI Procedures:
ERCP 01/22/2025
Impression:
- The major papilla appeared to be ulcerated.
- The major papilla appeared to be small.
- A single severe biliary stricture was found in the lower third of
the main bile duct. The stricture was malignant appearing.
- The common bile duct was severely dilated.
- A biliary sphincterotomy was performed.
- The stenosed segment of lower common bile duct was successfully
dilated.
- One plastic stent was placed into the right hepatic duct.
- One plastic stent was placed into the right hepatic duct.
EUS 01/21/2025
Impression:
- No gross lesions in the entire esophagus.
- No gross lesions in the entire stomach.
- Normal duodenal bulb, first portion of the duodenum and second
portion of the duodenum.
- A mass was identified in the pancreatic head. Tissue was
obtained from this exam, and results are pending. However, the
endosonographic appearance. This was staged T2 NX by endosonographic
criteria. Fine needle aspiration performed.
- There was dilation in the common bile duct which measured up to
16 mm.
- A cyst was found in the left lobe of the liver and in the
visualized portion of the liver and measured 18 mm by 15 mm.
- One enlarged lymph node was visualized in the gastrohepatic
ligament (level 18).
Assessment / Plan
-
In summary, 70 yo F PMH pancreatic cancer, asthma, HLD, GERD presenting with a peripancreatic collection and was advised to seek inpatient care for further management.
# Pancreatic cancer
# Peripancreatic collection concerning for abscess
- Outpatient CT showed peripancreatic collection concerning for possible abscess
- However, the patient denies any significant symptoms: no fevers, chills
- Patient only reported intermittent abdominal pain of cramping character
- VSS, afebrile, no leukocytosis, LFTs are within normal limits this admission, lipase 102
Plan:
- ID consulted, and per them, patient is receiving IV ertapenem.
- IR was consulted - deemed not amenable to percutaneous drainage
- Dr. Moyer with GI aware, and may attempt EUS with possible drainage today
- Keep NPO for procedure
- Further management (e.g. stent exchange/ERCP) to be discussed with Dr. Moyer after EUS attempt
- Recommendations are not final until discussed with Dr. Bo, GI attg
-
-
Thank you for consultation and allowing me to participate in the patient's care. Please call the regional office coordinator GI physician during the after hours with any questions or concerns.
--- NOTE | 2025-02-12 08:33 | W.PN.UPDATE ---
Update Note
Progress Note Update
Small peripancreatic collection is deep to stomach and liver, hepatic artery also courses along anterior aspect. Not amenable to percutaneous drainage.
[2025-02-12 08:38] LABS: Platelet Count 329 10^3/uL (130-400)
--- NOTE | 2025-02-12 09:17 | W.PN.HOSP.TC ---
Addendum entered and electronically signed by Freda Macedo MD 02/12/25 13:36:
Attending�addendum:
I�saw�and�evaluated�the�patient.�I�reviewed�the�resident�s�note�and�agree�with�findings�and�plan�as�documented�in�the�resident�s�note.��
�patient seen and examined at bedside, denies any chest pain or shortness of breath, no abdominal pain, no nausea, no vomiting, no diarrhea or constipation.
Discussed with at bedside
Physical�exam:
GENERAL : Patient is awake, alert, oriented x3
HEENT: Nonicteric sclerae, PERRLA, EOMI. Oropharynx clear. Moist mucous membranes. Conjunctivae appear well perfused.
CHEST: Chest wall is nontender.
HEART: Regular rate and rhythm without murmurs.
LUNGS: Clear to auscultation bilaterally.
ABDOMEN: Soft, positive bowel sounds, nontender, no organomegaly.
RECTAL: Deferred.
MUSCLES/EXTREMITIES No abnormal range of motion, no swelling.SKIN: No rash, no excessive bruising, petechiae, or purpura.
NEUROLOGIC: Cranial nerves II-XII intact without motor/sensory deficit.
�
Assessment/plan:
Possible abscess formation between biliary stent and proximal pancreatic body.
IR consult, no intervention.
GI consulted for ERCP today.
Infectious consult continue with ertapenem
Hyperlipidemia/GERD/asthma.
Continue current meds
Abnormal labs:
Wounds:
CODE STATUS: Full code
DVT prophylaxis: Lovenox
Diet: N.p.o.
Family communication: Discussed with at bedside
Disposition: ERCP today
�
Total�time�spent�on�today�s�encounter�was�55�minutes�which�included�time�spent�in�counseling�the�patient/family�regarding�diagnosis�and�treatment�plan�as�listed�above,�goals�of�care,�and�symptom�management.�Case�was�discussed�with�nursing�staff,�spec
ialists,�and�care�coordinators/case�management.�All�labs�and�imaging�personally�reviewed�by�me.�Remainder�the�time�spent�in�detailed�review�of�previous�records,�lab�data,�imaging,�and�other�medical�provider�documentation.
Original Note:
Today's Communication/Plan
-
Plan for ERCP for stents exchange
keep NPO
Continue IV Ertapenem
Assessment / Plan
Assessment / Plan
Patient is a 70-year-old female with past medical history significant for pancreatic cancer, asthma, hyperlipidemia and GERD who presented to [facility] ED for evaluation at request of DEANGELO Pendleton. Patient had outpatient CT scan completed that showed
possible abscess collection between biliary stents and proximal pancreatic body. Patient with recent pancreatic cancer during last hospitalization, d/c'ed 01/23/25. Since discharge she has been seen by oncology at [facility], Dr. Bess
and by oncology at [facility]. Patient currently scheduled for port placement Tuesday02/15/25 and first chemo Tuesday02/19/25. She spoke with Dr. Moyer twice today regarding CT findings and he requested she present to ED for in patient admission for IV
antibiotics, Consult to IR and to repeat ERCP to exchange stents. Patient denies any infectious symptoms, fever, chills, cough, shortness of breath, chest pain, nausea, vomiting, constipation, diarrhea or urinary symptoms.
Assessment and Plan:
#New possible abscess formation between the biliary stents and proximal pancreatic body per CT scan
#pancreatic cancer
Chest/Abd/Pel CT (02/08/25): 1. Pancreatic neoplasm redemonstrated. Associated narrowing of the distal main portal vein/portal splenic confluence. Small amount of tumor thrombus within the distal main portal vein.
2. New possible abscess formation between the biliary stents and proximal pancreatic body measuring up to 2.0 x 2.0 x 2.5 cm.
- Admit to med/surg
- Consult IR' :per ID recs 'Not amenable to percutaneous drainage
- Consult GI: Plan for ERCP for stent exchange
- Consulted ID
- NPO for ERCP today
- IV Ertapenem
#asthma
- continue montelukast
#GERD
- continue famotidine
#hyperlipidemia
- statin on hold since previous admission
Code status: full code
DVT prophylaxis: Lovenox sq
Anticipated Discharge: > 48 hours
Subjective/Interval History
-
Date of Service: February 12, 2025
Patient stated that she has been having epigastric tightness that radiated to her back since last month. She has loose stool in the last 3-4 days. Denied nausea, vomiting, melena, hematochezia. fever, or chills.
Objective Data
-
Labs:
Laboratory Results
02/12/25
07:10
WBC 7.0
Hgb 9.8 L
Hct 30.8 L
Plt Count 329 D
Sodium 137
Potassium 4.4
Chloride 105
Carbon Dioxide 29
BUN 19 H
Creatinine 0.8
Glucose 161 H
Calcium 8.4
Total Bilirubin 0.5
AST 24
ALT 31
Alkaline Phosphatase 96
Vital Signs:
Vital Signs
Temp Pulse Resp BP Pulse Ox
98.3 F 58 14 111/63 98
02/12/25 07:41 02/12/25 07:41 02/12/25 07:41 02/12/25 07:41 02/12/25 07:41
I&O
02/11/25 02/12/25 02/13/25
06:59 06:59 06:59
Intake Total 120 / 120
Balance 120 / 120
Review of Systems
-
History Source: Patient
Respiratory: Reports No Symptoms
Cardiac: Reports No Symptoms
Abdomen/GI: Reports Other (epigastric tightness radiated to the back )
Genitourinary: Reports Dark Urine
Musculoskeletal: Reports No Symptoms
Neuro: Reports No Symptoms
Physical Exam
-
General: Well Developed and Comfortable
HEENT: Normocephalic and Atraumatic
Respiratory: Clear to Auscultation
Cardiac: Regular Rhythm and S1/S2
GI: Soft, Nontender and Nondistended
Musculoskeletal: No Clubbing, No Cyanosis and No Edema
Skin: Warm and Dry
Neuro: Awake, Alert and Oriented
Psych: Calm
--- NOTE | 2025-02-12 10:26 | CM ---
Patient seen at bedside with present on . Patient states that she lives with her in a 2 story home but they primarily stay on the first floor. Patient states that she used to work at [employer]. Patient uses the [employer] on . [facility]. Patient PCP is luz elena SMITH. Patient plan is for discharge home with no needs. Patient verbalized concerns about multipule doctors with different plans. Patient seen by ID doctor julienne is recommending IV antibiotics for 2 weeks.
Patient wants to talk to Dr. Moyer and [facility] physicians to confirm plan at this time. CM will continue to follow for discharge planning needs.
Plan; home with IV antibiotics/VN; pending patient choice and medical treatment plan.
--- NOTE | 2025-02-12 10:57 | VATNOTE ---
PICC order noted. After discussion with Dr. Jarquin and Infection Prevention team, will hold placement until closer to discharge.
[2025-02-12] MEDS: CUBICIN 10 MG IV (11:08)
[2025-02-12 11:43] VITALS: BMI 20.4
[2025-02-12 15:35] VITALS: BP 112/64
[2025-02-12 18:16] VITALS: BP 108/64
[2025-02-12] MEDS: ZENPEP DELAYED RELEASE CAPSULE 1 CAPSULE PO (18:22)
[2025-02-12] MEDS: LOVENOX 40 MG SC (18:22)
[2025-02-12] MEDS: PEPCID 40 MG PO (21:31)
[2025-02-12] MEDS: INVANZ 60 MG IV (21:31)
[2025-02-12] MEDS: SINGULAIR 10 MG PO (21:31)
[2025-02-12] MEDS: ROXICODONE 5 MG PO (22:29)
[2025-02-12 23:39] VITALS: BP 127/67
[2025-02-13 06:57] LABS: Hematocrit 31.0 % (37.0-47.0); Hemoglobin 10.3 g/dL (12.0-16.0); Mean Corp Hgb Conc. 33.2 g/dL (33.0-37.0); Mean Corpuscular Volume 87.3 fL (81.0-99.0); Nucleated Red Blood Cells % 0 %; Platelet Count 346 10^3/uL (130-400); Red Cell Dist. Width 11.9 % (11.5-14.5)
[2025-02-13 07:09] LABS: ALT (SGPT) 36 U/L (0-35); AST (SGOT) 32 U/L (14-36); Albumin 2.9 g/dl (3.5-5.0); Alkaline Phosphatase 93 U/L (38-126); Blood Urea Nitrogen 12 mg/dl (7-17); Calcium 8.7 mg/dl (8.4-10.2); Carbon Dioxide 31 mmol/L (22-30); Chloride 105 mmol/L (98-107); Estimated Creatinine Clearance 54 ml/min; Glucose 141 mg/dl (70-99); Potassium 4.8 mmol/L (3.5-5.1); Sodium 139 mmol/L (135-145); Total Protein 5.7 g/dl (6.3-8.2); eGFR > 60.00
[2025-02-13] MEDS: ZENPEP DELAYED RELEASE CAPSULE PO ×2 (07:19→12:17)
[2025-02-13 07:27] VITALS: BP 119/70
--- NOTE | 2025-02-13 08:58 | W.PN.GI.CBS2 ---
Today's Communication / Plan
-
# Pancreatic cancer
# Peripancreatic collection concerning for abscess
- Outpatient CT showed peripancreatic collection concerning for possible abscess
- Patient denies any significant symptoms: no fevers, chills- Afebrile, no leukocytosis, LFTs are within normal limits this admission, lipase 102
- IR was consulted - deemed not amenable to percutaneous drainage
She is on ertapenem and daptomycin for the pancreatic abscess that was noted on CT scan.
EUS 02/12 did not show any evidence of abscess or visible collections, plastic stents with bile drainage showing patency noted. No intervention done.
Given CT findings, will get MRI of the abdomen with MRCP to evaluate this ? Abscess
Currently NPO for MRI today.
Will follow-up on the above testing
After the MRI, patient will follow-up with Dr. Bess again as outpatient for initiation of the chemotherapy.
Assessment / Plan
-
In summary, 70 yo F PMH pancreatic cancer, asthma, HLD, GERD presenting with a peripancreatic collection and was advised to seek inpatient care for further management.
# Pancreatic cancer
# Peripancreatic collection concerning for abscess
- Outpatient CT showed peripancreatic collection concerning for possible abscess
- Patient denies any significant symptoms: no fevers, chills- Afebrile, no leukocytosis, LFTs are within normal limits this admission, lipase 102
- IR was consulted - deemed not amenable to percutaneous drainage
She is on ertapenem and daptomycin for the pancreatic abscess that was noted on CT scan.
EUS 02/12 did not show any evidence of abscess or visible collections, plastic stents with bile drainage showing patency noted. No intervention done.
Given CT findings, will get MRI of the abdomen with MRCP to evaluate this ? Abscess
Currently NPO for MRI today.
Will follow-up on the above testing
After the MRI, patient will follow-up with Dr. Bess again as outpatient for initiation of the chemotherapy.
Subjective
Subjective
Date of Service: February 13, 2025
Patient without any complaints this morning. No abdominal pain, fevers or chills.
Objective
Data Reviewed
Laboratory Data:
Laboratory Results
02/13/25 06:08
02/13/25 06:08
Laboratory Results
Total Bilirubin 0.8 mg/dl (0.2-1.3) 02/13/25 06:08
AST 32 U/L (14-36) 02/13/25 06:08
ALT 36 U/L (0-35) H 02/13/25 06:08
Alkaline Phosphatase 93 U/L (38-126) 02/13/25 06:08
Lipase 102 U/L (23-300) 02/11/25 16:26
Vital Signs and I&O:
Vital Signs
Temp Pulse Resp BP Pulse Ox
97.4 F 56 14 119/70 99
02/13/25 07:27 02/13/25 07:27 02/13/25 07:27 02/13/25 07:27 02/13/25 07:45
I&O
02/12/25 02/13/25 02/14/25
06:59 06:59 06:59
Intake Total 120 / 120 240 / 240
Balance 120 / 120 240 / 240
Physical Exam
Physical Exam
GI: Soft, Non Distended and Non Tender
--- NOTE | 2025-02-13 11:33 | W.PN.ID1 ---
Addendum entered and electronically signed by Cecelia Jarquin MD 02/13/25 13:34:
20K GBS in the urine, asymptomatic bacturia - no need for treatment
Original Note:
Date of Service
Date of Service: February 13, 2025
Today's Communication
- MRI abdomen with MRCP is planned to distinguish whether a lesion exists - awaiting read
- continue antibiotics for now pending further data - ertapenem and daptomycin
Assessment / Plan
Possible Small Intraabdominal Abscess
- note lack of leukocytosis, fevers, and feeling overall well
- ERCP did not show a lesion
- MRI abdomen with MRCP is planned to distinguish whether a lesion exists - awaiting read
- continue antibiotics for now pending further data - ertapenem and daptomycin
Chief Complaint
-: Other (abscess)
Subjective / Review of Systems
afebrile
bp stable
Vital Signs / Physical Exam
Vital Signs
Vital Signs
Temp Pulse Resp BP Pulse Ox
97.4 F 56 14 119/70 99
02/13/25 07:27 02/13/25 07:27 02/13/25 07:27 02/13/25 07:27 02/13/25 07:45
Physical Exam
Constitutional: No Acute Distress
Cardiovascular: Regular Rate and S1/S2; Negative Murmur or Rub
Pulmonary: Clear and Symmetric; Negative Wheezes or Rales
Gastrointestinal: Soft, Non Tender, Non Distended and Normal Bowel Sounds
Skin: Warm and Dry; Negative Rash or Jaundice
Objective Data
Lab Data
Lab Results
02/13/25 06:08
02/13/25 06:08
Estimated Creat Clear 54 ml/min 02/13/25 06:08
Total Bilirubin 0.8 mg/dl (0.2-1.3) 02/13/25 06:08
AST 32 U/L (14-36) 02/13/25 06:08
ALT 36 U/L (0-35) H 02/13/25 06:08
Alkaline Phosphatase 93 U/L (38-126) 02/13/25 06:08
Most recent labs reviewed.
Micro Results:
02/11/25 17:15 Blood Culture - Preliminary
Blood/Venous No Growth in 24 hours- Final report to follow
02/11/25 17:15 Blood Culture - Preliminary
Blood/Venous No Growth in 24 hours- Final report to follow
02/11/25 16:26 Urine Culture - Final
Urine Streptococcus agalactiae
[2025-02-13] MEDS: CUBICIN 10 MG IV (12:17)
--- NOTE | 2025-02-13 12:31 | W.PN.HOSP.TC ---
Addendum entered and electronically signed by Freda Macedo MD 02/13/25 13:57:
Attending�addendum:
I�saw�and�evaluated�the�patient.�I�reviewed�the�resident�s�note�and�agree�with�findings�and�plan�as�documented�in�the�resident�s�note.��
�patient seen and examined at bedside, denies any chest pain or shortness of breath, no abdominal pain, no nausea, no vomiting, no diarrhea or constipation.
Discussed with at bedside.
MRI showed : No focal fluid collection is identified as previously suggested on CT between the biliary stents and the proximal pancreatic body.
Tumor within the pancreatic head/uncinate process without significant change.
Physical�exam:
GENERAL : Patient is awake, alert, oriented x3
HEENT: Nonicteric sclerae, PERRLA, EOMI. Oropharynx clear. Moist mucous membranes. Conjunctivae appear well perfused.
CHEST: Chest wall is nontender.
HEART: Regular rate and rhythm without murmurs.
LUNGS: Clear to auscultation bilaterally.
ABDOMEN: Soft, positive bowel sounds, nontender, no organomegaly.
RECTAL: Deferred.
MUSCLES/EXTREMITIES No abnormal range of motion, no swelling.SKIN: No rash, no excessive bruising, petechiae, or purpura.
NEUROLOGIC: Cranial nerves II-XII intact without motor/sensory deficit.
�
Assessment/plan:
Possible abscess formation between biliary stent and proximal pancreatic body.
Abscess is ruled out.
IR consult, no intervention.
GI consulted for ERCP which shows no abcess
MRi shows : No focal fluid collection is identified as previously suggested on CT between the biliary stents and the proximal pancreatic body.
Tumor within the pancreatic head/uncinate process without significant change.
Hyperlipidemia/GERD/asthma.
Continue current meds
Abnormal labs:
Wounds:
CODE STATUS: Full code
DVT prophylaxis: Lovenox
Diet: low fat
Family communication: Discussed with at bedside
Disposition: Dc home today.
Total time spent on today's encounter was 55 minutes which included time spent in counseling the patient/family regarding diagnosis and treatment plan as listed above, goals of care, and symptom management. Case was discussed with nursing staff,
specialists, and care coordinators/case management. All labs and imaging personally reviewed by me. Remainder the time spent in detailed review of previous records, lab data, imaging, and other medical provider documentation.
Original Note:
Today's Communication/Plan
-
MRI of the abd
pwe GI recs ;after the MRI, patient will follow-up with Dr. Bess again as outpatient for initiation of the chemotherapy.
Assessment / Plan
Assessment / Plan
Patient is a 70-year-old female with past medical history significant for pancreatic cancer, asthma, hyperlipidemia and GERD who presented to [facility] ED for evaluation at request of Dr. Moyer, GI. Patient had outpatient CT scan completed that showed
possible abscess collection between biliary stents and proximal pancreatic body. Patient with recent pancreatic cancer during last hospitalization, d/c'ed 01/23/25. Since discharge she has been seen by oncology at [facility], Dr. Bess
and by oncology at [facility]. Patient currently scheduled for port placement Tuesday02/15/25 and first chemo Tuesday02/19/25. She spoke with Dr. Moyer twice today regarding CT findings and he requested she present to ED for in patient admission for IV
antibiotics, Consult to IR and to repeat ERCP to exchange stents. Patient denies any infectious symptoms, fever, chills, cough, shortness of breath, chest pain, nausea, vomiting, constipation, diarrhea or urinary symptoms.
Assessment and Plan:
#New possible abscess formation between the biliary stents and proximal pancreatic body per CT scan
#pancreatic cancer
Chest/Abd/Pel CT (02/08/25): 1. Pancreatic neoplasm redemonstrated. Associated narrowing of the distal main portal vein/portal splenic confluence. Small amount of tumor thrombus within the distal main portal vein.
2. New possible abscess formation between the biliary stents and proximal pancreatic body measuring up to 2.0 x 2.0 x 2.5 cm.
- Admit to med/surg
- Consult IR' :per ID recs 'Not amenable to percutaneous drainage
- Consult GI: ultrasound endoscopy 02/12/2025 did not show any evidence of abscess or visible collections, plastic stents with bile drainage showing patency noted. No intervention done.
Given CT findings, MRI today of the abdomen with MRCP to evaluate if abscess shown in MRI
- ID appreciated
- IV ertapenem and daptomycin
#asthma
- continue montelukast
#GERD
- continue famotidine
#hyperlipidemia
- statin on hold since previous admission
Code status: full code
DVT prophylaxis: Lovenox sq
Anticipated Discharge: 24 - 48 hours
Subjective/Interval History
-
Date of Service: February 13, 2025
Patient denied abd pain, nausea, vomiting or changes in bowel movement or urinary symptoms.
Objective Data
-
Labs:
Laboratory Results
02/13/25
06:08
WBC 5.2
Hgb 10.3 L
Hct 31.0 L
Plt Count 346
Sodium 139
Potassium 4.8
Chloride 105
Carbon Dioxide 31 H
BUN 12
Creatinine 0.8
Glucose 141 H
Calcium 8.7
Total Bilirubin 0.8
AST 32
ALT 36 H
Alkaline Phosphatase 93
Vital Signs:
Vital Signs
Temp Pulse Resp BP Pulse Ox
97.4 F 56 14 119/70 99
02/13/25 07:27 02/13/25 07:27 02/13/25 07:27 02/13/25 07:27 02/13/25 07:45
I&O
02/12/25 02/13/25 02/14/25
06:59 06:59 06:59
Intake Total 120 / 120 240 / 240
Balance 120 / 120 240 / 240
Review of Systems
-
History Source: Patient
Respiratory: Reports No Symptoms
Cardiac: Reports No Symptoms
Abdomen/GI: Reports Other (epigastric tightness radiated to the back )
Genitourinary: Reports Dark Urine
Musculoskeletal: Reports No Symptoms
Neuro: Reports No Symptoms
Physical Exam
-
General: Well Developed and Comfortable
HEENT: Normocephalic and Atraumatic
Respiratory: Clear to Auscultation
Cardiac: Regular Rhythm and S1/S2
GI: Soft, Nontender and Nondistended
Musculoskeletal: No Clubbing, No Cyanosis and No Edema
Skin: Warm and Dry
Neuro: Awake, Alert and Oriented
Psych: Calm
--- NOTE | 2025-02-13 13:48 | W.DCSUMMARY ---
Addendum entered and electronically signed by Freda Macedo MD 02/14/25 08:26:
Attending�addendum:
I�saw�and�evaluated�the�patient.�I�reviewed�the�resident�s�note�and�agree�with�findings�and�plan�as�documented�in�the�resident�s�note.��
�patient seen and examined at bedside, denies any chest pain or shortness of breath, no abdominal pain, no nausea, no vomiting, no diarrhea or constipation.
Discussed with at bedside.
MRI showed : No focal fluid collection is identified as previously suggested on CT between the biliary stents and the proximal pancreatic body.
Tumor within the pancreatic head/uncinate process without significant change.
Physical�exam:
GENERAL : Patient is awake, alert, oriented x3
HEENT: Nonicteric sclerae, PERRLA, EOMI. Oropharynx clear. Moist mucous membranes. Conjunctivae appear well perfused.
CHEST: Chest wall is nontender.
HEART: Regular rate and rhythm without murmurs.
LUNGS: Clear to auscultation bilaterally.
ABDOMEN: Soft, positive bowel sounds, nontender, no organomegaly.
RECTAL: Deferred.
MUSCLES/EXTREMITIES No abnormal range of motion, no swelling.SKIN: No rash, no excessive bruising, petechiae, or purpura.
NEUROLOGIC: Cranial nerves II-XII intact without motor/sensory deficit.
�
Assessment/plan:
Possible abscess formation between biliary stent and proximal pancreatic body.
Abscess is ruled out.
IR consult, no intervention.
GI consulted for ERCP which shows no abcess
MRi shows : No focal fluid collection is identified as previously suggested on CT between the biliary stents and the proximal pancreatic body.
Tumor within the pancreatic head/uncinate process without significant change.
Hyperlipidemia/GERD/asthma.
Continue current meds
Abnormal labs:
Wounds:
CODE STATUS: Full code
DVT prophylaxis: Lovenox
Diet: low fat
Family communication: Discussed with at bedside
Disposition: Dc home today.
Total time spent on today's encounter was 40 minutes which included time spent in counseling the patient/family regarding diagnosis and treatment plan as listed above, goals of care, and symptom management. Case was discussed with nursing staff,
specialists, and care coordinators/case management. All labs and imaging personally reviewed by me. Remainder the time spent in detailed review of previous records, lab data, imaging, and other medical provider documentation.
Original Note:
Documented by User: Damian Hoover MD, Resident 02/13/25 17:02
Discharge Summary
Discharge Data
Date of Admission: 02/11/25
Date of Discharge: 02/13/25
-
Pending Results: No
Hospital Course
Patient is a 70-year-old female with past medical history significant for pancreatic cancer, asthma, hyperlipidemia and GERD who presented to [facility] ED for evaluation at request of Dr. Moyer, GI. Patient had outpatient CT scan completed that showed
possible abscess collection between biliary stents and proximal pancreatic body. Patient with recent pancreatic cancer during last hospitalization, d/c'ed 01/23/25. Since discharge she has been seen by oncology at [facility], Dr. Bess
and by oncology at [facility]. Patient currently scheduled for port placement Tuesday02/15/25 and first chemo Tuesday02/19/25. She spoke with Dr. Moyer twice today regarding CT findings and he requested she present to ED for in patient admission for IV
antibiotics, Consult to IR and to repeat ERCP to exchange stents. Patient denies any infectious symptoms, fever, chills, cough, shortness of breath, chest pain, nausea, vomiting, constipation, diarrhea or urinary symptoms. Patient was admitted and
started on IV Ertapenem and daptomycin for suspected pancreatic abscess that was found per CT scan.
During hospitalization she remained asymptomatic except for epigastric tightness radiated to her back which she stated that she has been experiencing in the last couple weeks. Her CT scan New possible abscess formation between the biliary stents and
proximal pancreatic body measuring up to 2.0 x 2.0 x 2.5 cm. IR was consulted - deemed not amenable to percutaneous drainage. Endoscopic ultrasound was done on 02/12/2025 which excluded abscess seen on CT therefore, MRI of the abdomen was done which
did not show any evidence of abscess or visible collections, plastic stents with bile drainage showing patency noted. No intervention done. Patient advised to follow-up with Dr. Bess again as outpatient for initiation of the chemotherapy after
discharge. Her WBC wnl with mild ALT elevation 36, Hb 10.3 on 02/13/2025.Patient discharge in stable condition.
Important radiological findings:
CT Chest/abd/pel W Iv Cont 02/08/2025
IMPRESSION:
1. Pancreatic neoplasm redemonstrated. Associated narrowing of the distal main portal vein/portal splenic confluence. Small amount of tumor thrombus within the distal main portal vein.
2. New possible abscess formation between the biliary stents and proximal pancreatic body measuring up to 2.0 x 2.0 x 2.5 cm.
MRI Abdomen W/o & W Contrast 02/13/2025
IMPRESSION:
No focal fluid collection is identified as previously suggested on CT between the biliary stents and the proximal pancreatic body.
Tumor within the pancreatic head/uncinate process without significant change.
Slightly increased soft tissue between the common hepatic artery, portal vein, pancreatic head/neck and common bile duct could represent mild focal pancreatitis, or tumor extension. Signal intensity of the main pancreatic duct in the region of
pancreatic neck appears placed by intermediate T2 signal intensity, which could represent tumor infiltration or extrinsic compression. Slight distention without gross dilatation of the main pancreatic duct. Possible mild pancreatitis. Recommend
correlation with pancreatic enzymes. Slightly increased mild distention of the common hepatic duct. Recommend correlation with liver function tests.
Proximal portal vein nonocclusive thrombus.
Mild splenomegaly, 13 cm in long axis.
Discharge Plan
-
Patient Disposition: Home (Routine Discharge)
Discharge Diagnosis/Procedures: Concern of abscess formation between the biliary stents and proximal pancreatic body per CT scan-but MRI shows no abscess
Diet: Low Fat
Activity: As tolerated
Referrals:
Trini Ingram PA-C [Family Provider, Internal Medicine]
Paula Bess MD [Active, Oncology] - in less than 1 week
Prescriptions:
Continued
montelukast 10 MG tablet
10 mg PO HS
famotidine [Pepcid] 40 mg Tablet
40 mg PO HS
oxycodone 5 mg Tablet
5 mg PO Q6HPRN PRN (Reason: severe pains)
Creon 12,000-38,000 -60,000 unit Capsule,Delayed Release(Dr/Ec)
1 cap PO AC
Discharge Orders:
Discharge Patient (As Directed); Ordered 02/13/25
Ordered By: Freda Macedo
Discharge Date and Time
Discharge Date/Time: 02/13/25 15:06
Print Language: SOMALI

Documented by User: Freda Macedo MD 02/14/25 08:25
Discharge Summary
Discharge Data
Date of Admission: 02/11/25
Date of Discharge: 02/14/25
Discharge Plan
-
Patient Disposition: Home (Routine Discharge)
Discharge Diagnosis/Procedures: Concern of abscess formation between the biliary stents and proximal pancreatic body per CT scan-but MRI shows no abscess
Diet: Low Fat
Activity: As tolerated
Referrals:
Trini Ingram PA-C [Family Provider, Internal Medicine]
Paula Bess MD [Active, Oncology] - in less than 1 week
Prescriptions:
Continued
montelukast 10 MG tablet
10 mg PO HS
famotidine [Pepcid] 40 mg Tablet
40 mg PO HS
oxycodone 5 mg Tablet
5 mg PO Q6HPRN PRN (Reason: severe pains)
Creon 12,000-38,000 -60,000 unit Capsule,Delayed Release(Dr/Ec)
1 cap PO AC
Discharge Orders:
Discharge Patient (As Directed); Ordered 02/13/25
Ordered By: Freda Macedo
Discharge Date and Time
Discharge Date/Time: 02/13/25 15:06
Print Language: SOMALI
[2025-02-13] MEDS: ZENPEP DELAYED RELEASE CAPSULE 1 CAPSULE PO (14:12)
[2025-02-13 15:00] VITALS: BP 105/64
--- NOTE | 2025-02-13 15:03 | CM ---
Patient seen at bedside
spoke with Dr. Jarquin no iv abx needed
Patient discharge today
patient states will be going to outpatient PT and start tx on Tuesday
IMM explained & signed
PLAN: Home, no needs
to transport
== END 2025-02-13 15:06 | disposition home or self-care (01) | DRG 437 ==
LOC: 3 WEST ACU 20:29
PROVIDERS: Internal Medicine Gastroenterology; Nurse Practitioner Family; Physician Assistant; Specialist Research Data Abstracter/Coder; ADMITTING PHYSICIAN Internal Medicine; ATTENDING PHYSICIAN General Practice; CONSULT PHYSICIAN Internal Medicine Gastroenterology; EMERGENCY PHYSICIAN Emergency Medicine; FAMILY PHYSICIAN Physician Assistant; OTHER PHYSICIAN Student in an Organized Health Care Education/Training Program
PROC: 0DJ08ZZ Inspection of Upper Intestinal Tract, Via Natural or Artificial Opening Endoscopic (ICD-10-PCS; 2025-02-12)
DX: C25.9 Malignant neoplasm of pancreas, unspecified (principal); E78.00 Pure hypercholesterolemia, unspecified; K21.9 Gastro-esophageal reflux disease without esophagitis; R16.1 Splenomegaly, not elsewhere classified; J45.909 Unspecified asthma, uncomplicated; K76.89 Other specified diseases of liver; Z96.89 Presence of other specified functional implants; Z79.899 Other long term (current) drug therapy; Z87.891 Personal history of nicotine dependence; Z82.49 Family history of ischemic heart disease and other diseases of the circulatory system; Z90.710 Acquired absence of both cervix and uterus
CPT/HCPCS: 71260; 74177; 74183; 80053; 81003; 81015; 82550; 83690; 85025; 85027; 87040; 87077; 87086; 87147; 96365; 99285; J0878; J1335; Q9967

== ENCOUNTER → 2025-02-15 09:18 | Outpatient (REF) | payer MEDICARE, SELFPAY ==
[2025-02-15 10:02] VITALS: BP 105/70; BP_SYST 58; BMI 20.7
[2025-02-15] MEDS: ANCEF 10 IV (10:26)
[2025-02-15 11:45] VITALS: BP 128/69; BP_SYST 47
[2025-02-15 11:50] VITALS: BP 124/74; BP_SYST 45
[2025-02-15 12:05] VITALS: BP 127/98; BP_SYST 60
== END ==
LOC: RADI 09:18
PROVIDERS: ATTENDING PHYSICIAN Internal Medicine Hematology & Oncology; FAMILY PHYSICIAN Physician Assistant
DX: C25.0 Malignant neoplasm of head of pancreas (principal)
CPT/HCPCS: 36561; 76937; 77001; 99152; 99153

== ENCOUNTER 2025-02-18 22:08 | Inpatient (IN) | payer MEDICARE, SELFPAY ==
[2025-02-18 16:32] VITALS: BP 142/85
[2025-02-18 18:54] VITALS: BP 122/67
--- NOTE | 2025-02-18 20:14 | ED.GENMED ---
History of Present Illness
General
Chief Complaint: Abdominal Pain
Source: patient, records, spouse, previous radiology exam and previous hospital records
Exam Limitations: none
Time Seen by Provider: 02/18/25 19:51
Nursing documentation reviewed up to this point in time: agreed with
History of Present Illness
History of Present Illness:
70-year-old female recently diagnosed pancreatic CA, had a stent placed, possible abscess treated with antibiotics ERCP, port placed with plan to start chemo tomorrow she had some back pain earlier today and yesterday outpatient blood work showed
increased LFTs, fever 102 referred here for ultrasound and likely admission from oncology
Past History
Past History
ED Past Medical History: Asthma, Cancer, GERD and Hypercholesterolemia; Negative HTN, IDDM or NIDDM
ED Past Surgical History: Other (ERCP)
Social History
Tobacco: Non-smoker
Alcohol: None
Drug: None
Personal:
Living: with family
Family History
Family History: CAD
Review of Systems
Review of Systems
All Other Systems: Not applicable
Constitutional: Reports fever and fatigue
Respiratory: Denies trouble breathing
ABD/GI: Reports abdominal pain, nausea and constipated
Musculoskeletal: Reports back pain
Neurological: Reports weakness
Phy Exam
Physical Exam
Physical Exam:
Physical Exam
General: Nontoxic female
Neck: Without jaundice
Heart: s1/s2 regular rate and rhythm, no murmur. equal radial pulses.
Lungs: no acute respiratory distress.
Abdomen: Mild epigastric tenderness
Neuro: alert and oriented. no focal neurological deficits
Skin: no rash
Psychiatric: well kept. interactive and cooperative
Extremities: no edema.
Course
Orders/Labs/Results
Orders:
Orders
02/18/25 20:08
CT Abd/Pel (IV only)-DH only Urgent
Comment:
Reason For Exam: fever pacnreatic CA
0.9% Sodium Chloride 1000 ml [Nss] 1,000 ml IV BOLUS
HYDROmorphone [Dilaudid] 0.5 mg IV NOW STA
US Abdomen Complete/Upper Urgent
Comment:
Reason For Exam: fever pancreatic CA
02/18/25 20:15
Lactic Acid Q4H
Comment: CANCEL 2nd LACTIC ACID IF 1st LACTIC ACID IS LESS THAN 2
Blood Culture Q30M
CARLOS Source: Blood/Venous
Specimen Description:
02/18/25 20:17
Ertapenem 1 gram IVPB NOW Ertapenem [Invanz] 1,000 mg 0.9% Sodium Chloride [Nss] 50 ml IV NOW
02/18/25 20:45
Blood Culture Q30M
CARLOS Source: Blood/Venous
Specimen Description:
02/19/25 00:15
Lactic Acid Q4H
Comment: CANCEL 2nd LACTIC ACID IF 1st LACTIC ACID IS LESS THAN 2
Vital Signs
Initial and Last Documented VS:
Initial Vital Signs
Temp Pulse Resp BP Pulse Ox
100.3 F 112 20 142/85 96
02/18/25 16:32 02/18/25 16:32 02/18/25 16:32 02/18/25 16:32 02/18/25 16:32
Last Documented Vital Signs
Temp Pulse Resp BP Pulse Ox
99.9 F 95 20 122/67 96
02/18/25 18:54 02/18/25 18:54 02/18/25 16:32 02/18/25 18:54 02/18/25 20:15
MDM/Problems Addressed
Differential Diagnosis Includes:
Cholangitis, persistent cancer, recurrent abscess line infection
MDM/Problems Addressed:
LFTs up pancreatic cancer fever
Chronic conditions affecting care: Cancer
Acute Exacerbation and/or Progression of Chronic Illness: Cancer
*Radiology
Radiology exam reviewed: other (Ultrasound CAT scan pending)
*Pulse Oximetry
SaO2: 96
Oxygen Mode of Delivery: Room air
Patient hypoxic: no
*Critical Care Note
Total Time (30-74mins, 75-104mins- exclusive of procedures): Not Applicable
Data Reviewed
Review of Other/Old Records Reveals: Labs and Discharge Summary
Source: patient, records, spouse and previous radiology exam
Update Note
Update Note:
Update patient nontoxic labs from earlier today noted significant increase in LFTs obstructive pattern will drawl blood cultures, message sent to oncology hematology ID GI all of which have been following the patient was started on antibiotics admit
ED Attending Note
-
Portions of this chart may have been created with voice recognition software.� Occasional wrong word or��sound alike� substitutions may have occurred due to the inherent limitations of voice recognition software.
Discharge Plan
Departure
Prescriptions:
No Action
montelukast 10 MG tablet
10 mg PO HS
famotidine [Pepcid] 40 mg Tablet
40 mg PO HS
ipratropium-albuterol 20-100 mcg/actuation Mist
1 puff INHALATION QID PRN (Reason: wheezing)
oxycodone 5 mg Tablet
5 mg PO Q6HPRN PRN (Reason: severe pains)
Creon 12,000-38,000 -60,000 unit Capsule,Delayed Release(Dr/Ec)
1 cap PO AC
Referrals:
NONE,* [Family Provider, Internal Medicine]
Interventions
Interventions:
*Risk Screen - Suicide Last Done: 02/18/25 16:32
*General Assessment Last Done: 02/18/25 16:32
*Neglect/Abuse Screening Last Done: 02/18/25 16:32
Discharge Date and Time
Print Language: TURKISH
--- NOTE | 2025-02-18 20:16 | HPS.HSE ---
Addendum entered and electronically signed by Babak Shirley DO 02/18/25 22:44:
Patient seen and examined independently. Agree with findings and plan as set forth by RODDY Raya.
Patient is a 70y F with PMH significant for pancreatic cancer s/p prior ERCP with biliary stent who presents to ED complaining of epigastric abdominal pain and abnormal labs. Patient had biliary stent placed about 2 weeks ago. She felt fairly
well until yesterday when pain developed. She was sent for outpatient labs and then to the ED when these revealed significantly elevated LFTs. Patient reports fever at home today to 101.8. She also reports constipation with last BM about 5 days
ago. Small amount of bilious appearing emesis.
Ass:
Ascending Cholangitis
Biliary Obstruction
Pancreatic Adenocarcinoma
Constipation
Asthma without Acute Exacerbation
GERD
Plan:
Admit for further evaluation and treatment.
NPO, IVFs, IV abx for suspected cholangitis.
CT shows severe intra / extrahepatic ductal dilation c/w occlusion of known biliary stent.
GI evaluation for additional recommendations / possible intervention.
Supportive care, pain control, antiemetics, etc.
Started on meropenem per ID pending further cultures / recommendations.
Original Note:
Family Physician
-
Family Physician: * NONE
Chief Complaint
-
epigastric pain and abnormal out patient labs
History of Present Illness
Patient is a 70-year-old female with past medical history significant for pancreatic cancer, hyperlipidemia, GERD and asthma who presented to [facility] ED for evaluation of epigastric pain and abnormal out patient labs. Patient reports having felt well
since discharge from hospital 02/13/2025 until yesterday when she started to have some epigastric pain that radiated around her back and then developed a fever today with T-max 101.8F at home. She also reports last bowel movement during previous
hospitalization, has taken miralax last 2 days and has been ineffective.
Medical History
Past Medical History
Past Medical History: Reports Other
Additional Past Medical History:
pancreatic cancer
hyperlipidemia
GERD
asthma
Past Surgical History: Reports Other
Additional Past Surgical History:
MIAN-BSO, pelvic floor reconstruction
Social History
Tobacco: Non-smoker
Alcohol: Other (stopped all alcohol with pancreatic cancer diagnosis )
Personal:
Living: With Family
Family History
Family History: Not pertinent
Allergies / Home Medications
Allergies reflects when Allergies were last updated in [facility].
Home Medications with original date entered in [facility]
Allergy/Medication List:
Allergies
Allergy/AdvReac Type Severity Reaction Status Date / Time
mold Allergy chest Verified 02/18/25 16:36
tighness
MILDEW Allergy chest Uncoded 02/18/25 16:36
tighness
Home Medications
montelukast 10 mg tablet 10 mg PO HS Allergies 03/15/14
famotidine 40 mg tablet (Pepcid) 40 mg PO HS Gastrointestinal Issue 01/18/25
gedirl-lygpxzln-tdviptl(pork)12,000-38,000-60,000 unit capsule,del rel (Creon) 1 cap PO AC ENZYME 02/11/25
oxycodone 5 mg tablet 5 mg PO Q6HPRN PRN severe pains 02/11/25
ipratropium 20 mcg-albuterol 100 mcg/actuation mist for inhalation 1 puff inhalation QID PRN wheezing 02/15/25
atorvastatin 10 mg tablet 10 mg PO DAILY 02/18/25
Review of Systems
-
History Source: Patient
Constitutional: Reports Fever; Denies Chills
EENT: Denies Sore Throat
Respiratory: Denies Cough, Hemoptysis or Trouble Breathing
Cardiac: Denies Chest Pain, Diaphoresis, Palpitations or Syncope
Abdomen/GI: Reports Abdominal Pain, Nausea and Constipated; Denies Vomiting or Diarrhea
: Denies Dysuria, Frequency or Urgency
Musculoskeletal: Denies Joint Pain
Skin: Denies Rash
Neurological: Denies Dizzy, Headache, Weakness or Numbness
Hematologic/Lymphatic: Denies Bleeding
Physical Exam
Vital Signs
Vital Signs
Temp Pulse Resp BP Pulse Ox
99.9 F 95 20 122/67 96
02/18/25 18:54 02/18/25 18:54 02/18/25 16:32 02/18/25 18:54 02/18/25 20:15
Physical Exam
General: Well Developed, Well Nourished, Comfortable, Conversant and Fever
HEENT: NormoCephalic, Moist mucous membranes, Atraumatic, Nose Appears Normal and Ears Appear Normal
Respiratory: Clear and Non Labored Respirations
Cardiac: S1/S2 and Regular Rhythm
GI: Soft, Non Distended, Normal Bowel Sounds and Tender (mild epigastric tenderness )
Musculoskeletal: No Clubbing, No Cyanosis and No Edema
Skin: Warm and IV/Catheter Site
Neuro: Awake and AO x 3
Hematologic/Lymphatic: No Lymphadenopathy
Psych: Calm
Data Reviewed
-
Lab Data: Labs Reviewed by me (tot bili 2.6, AST 677, ALT 451, alk phos 452)
Impression/Plan
-
IMPRESSION/PLAN:
#mild epigastric discomfort with abnormal out patient labs and fever 2/2 cholangitis vs. GERD vs. metastatic disease
tot bili 2.6, AST 677, ALT 451, alk phos 452
Abd/Pel CT: 1. SEVERE INTRAHEPATIC and EXTRAHEPATIC BILIARY DILATATION which is new from 02/08/2025 consistent with acute occlusion of the biliary stents.
2. 5.7 cm PANCREATIC HEAD ADENOCARCINOMA.
3. 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
4. Small amount of nonocclusive thrombus in the main portal vein.
5. Collateral varices throughout the upper abdomen.
6. Mild splenomegaly.
7. Large amount of fecal material throughout the proximal colon consistent with SEVERE CONSTIPATION.
8. Moderate to severe diverticulosis in the sigmoid colon.
9. Severe discogenic degenerative disease at L3/L4, L4/L5, and L5/S1.
Abd US: pending
- Admit to med/surg
- Consult ID
- Consult GI
- IV Ertapenem
#pancreatic cancer
follows with [facility]
chemo was scheduled to start tomorrow 02/18/2025
- continue Creon
#constipation
last BM approximately 02/13/2025
took Miralax last 2 days
- bowel regimen
#hyperlipidemia
- hold atorvastatin
#GERD
- continue famotidine
#asthma
- continue DuoNeb PRN and montelukast
Code status: full code
DVT prophylaxis: SCDs
[2025-02-18] MEDS: DILAUDID 0.5 MG IV (20:55)
[2025-02-18] MEDS: NSS 1000 IV (20:55)
[2025-02-18 21:00] VITALS: BP 118/78
[2025-02-18 21:57] VITALS: BMI 22.5
[2025-02-18] MEDS: INVANZ 60 MG IV (22:09)
[2025-02-18] MEDS: ZOFRAN 4 MG IV (22:10)
[2025-02-18 23:40] VITALS: BMI 20.2
[2025-02-18 23:51] VITALS: BP 140/67
[2025-02-19] VITALS (7 sets, daily range): BP systolic 102–132; BP diastolic 50–73; BMI 20.2
[2025-02-19] MEDS: NSS 1000 IV ×3 (00:24→17:28)
--- NOTE | 2025-02-19 05:48 | PTCARENOTE ---
Pt arrived to unit from ED on stretcher at 2340. Pt ambulated to bathroom without assistance-gait steady. Pt reports no pain at this time, VSS. Pt reports last BM on 02/14-bowel regimen to start on 02/19. NPO at this time w/ sips of clears. IVF
started. Pt made aware on POC and is agreeable to it. Bed in lowest position and locked, call campbell within reach, pt states no further concerns at this time.
--- NOTE | 2025-02-19 08:25 | CON.ID ---
Consultation
-
Date/Time Consultation Requested: 02/18/2025 2341
Date/Time Consultation Performed: 02/19/2025 0826
Requesting Provider: Darlin Borjas
Performing Provider: Dr. Miller
Reason for Consultation: Abscess
Chief Complaint / Past History
History of Present Illness
Boo Velez is a 70-year-old female with a significant past medical history of recently diagnosed pancreatic CA being evaluated at the request of Darlin Borjas regarding possible pancreatic abscess. History is obtained from chart review, along
with patient interview.
The patient is known to the Infectious Diseases service, having been seen in mid January for a possible abscess between known biliary stents in the proximal pancreatic body. During that hospitalization, she underwent MRI imaging which did not
reveal any focal fluid collection as suggested by prior CT imaging. The patient was discharged on 02/13/2025.
She presented to the ER yesterday following the development of back pain and left abdominal pain yesterday and blood work performed yesterday revealed increased LFTs. Additionally, the patient reportedly had a outpatient fever to 101.[address] imaging performed yesterday revealed severe intrahepatic and extrahepatic biliary dilatation suggesting acute occlusion of biliary stents. She has been placed on empiric antibiotics, and Infectious Disease assist, and upon further
antimicrobial management.
Currently, she reports feeling fair. She noted nausea yesterday which is now improved she does admit to significant constipation.
Past History
Additional Past Medical History:
pancreatic cancer
asthma
hyperlipidemia
GERD
Additional Past Surgical History:
Hysterectomy
Allergy History:
mold Allergy (Verified 02/18/25 16:36)
chest tighness
MILDEW Allergy (Uncoded 02/18/25 16:36)
chest tighness
Medications Reviewed: Yes
Current Antibiotics:
Meropenem 1 gm IV q.8 hours
Social History
Tobacco: Non-Smoker
Alcohol: None
Drug: None
Personal:
Family History
Family History: Not Pertinent
Review of Systems
Vital Signs
Temp Pulse Resp BP Pulse Ox
98.1 F 75 15 103/58 95
02/19/25 07:28 02/19/25 07:28 02/19/25 07:28 02/19/25 07:28 02/19/25 07:28
Physical Exam
Physical Exam
Constitutional: No Acute Distress, Comfortable and Non-toxic
Eyes: No Conjunctival Hemorrhage and Sclera Anicteric
Oral: No Thrush and No Ulcers
Cardiovascular: Regular Rate and S1/S2; Negative S3/S4
Pulmonary: Clear; Negative Wheezes, Rales or Rhonchi
Gastrointestinal: Soft, Non Tender, Non Distended, Normal Bowel Sounds, No Rebound and No Guarding
Genito-Urinary: Negative Marte
Extremities: Negative Edema, Cyanosis or Erythema
Neurological: Awake and Alert
Psychological: Calm
.
Lab / Diagnostic Study Results
Lactic Acid 0.8 mmol/L (0.7-2.0) 02/19/25 00:39
Microbiology Results
Micro:
02/18/25 20:49 Blood Culture - Pending
Blood/Venous
02/18/25 20:49 Blood Culture - Pending
Blood/Venous
Imaging:
02/18/2025 CT abdomen/pelvis with IV contrast: there is severe intrahepatic and extrahepatic biliary dilatation, which is new from 02/08/2025 study, consistent with acute occlusion of noted biliary stents. There is a 5.7 cm pancreatic head
adenocarcinoma. There is malignant invasion and obstruction of the superior mesenteric vein, with new thrombus in the SMV proximal to the occlusion. There is a small amount of nonocclusive thrombus in the main portal vein. There are collateral
varices throughout the upper abdomen. There is a large amount of fecal material throughout the proximal colon consistent with severe constipation. Moderate to severe diverticulosis in the sigmoid colon. Please see full dictation for additional
detail.
02/18/2025 Abdominal ultrasound: severe intrahepatic and extrahepatic biliary dilatation suggesting occlusion of the plastic biliary stents in the common bile duct. There is distended gallbladder containing sludge. Noted pancreatic head
adenocarcinoma. Mild splenomegaly. Please see full dictation for additional detail.
Assessment / Plan
Obstruction of biliary stents
Suspected ascending cholangitis.
Transaminitis
Elevated bilirubin
Normal white count with left shift
Pancreatic cancer (Dx 01/21/2025)
asthma
hyperlipidemia
GERD
Recommendations:
Continue with empiric meropenem. Decrease dose to 500 mg IV q.6 hours.
Patient tentatively for ERCP later today.
Follow white count and temperature curve.
Trend LFTs and bilirubin.
Further recommendations as additional data is returned.
Care Review
Plan reviewed with: Physician (GI)
--- NOTE | 2025-02-19 08:58 | CON.GI ---
Consultation
-
Date/Time Consultation Requested: 02/19/25
Date/Time Consultation Performed: 02/19/25
Requesting Provider: Dr. Jiménez
Performing Provider: Dr. Dupree
Reason for Consultation: Cholangitis
Medical History
Chief Complaint / HPI
Chief Complaint: Cholangitis
History of Present Illness:
Boo Velez is a 70 y.o. female with recently diagnosed pancreatic Ca with recent port placement and plans to begin chemotherapy today who was advised to come to the hospital after her outpatient labs showed a significant elevation in liver enzymes.
She endorses constipation, ever since starting the creon. She takes 1 tablet TID with meals. Her appetite has improved and is tolerating PO well since starting the Creon. She has taken miralax for the last 3 days but has been unable to do so.
Otherwise, she denies fever/chills, nausea, vomiting, abdominal pain. She plans to have chemo for 6 months, then proceed with [facility], under the care of Dr. Mraiscal. CT on admission shows severe biliary dilation with c/f biliary stent occlusion,
known panc mass with SMV involvement and thrombus in the SMV proximal to the occlusion in addition to small amount of nonocclusive thrombus in the main portal vein, collateral varices int he upper abdomen, mild splenomegaly and a large amount of
stool throughout the colon, c/w constipation. Of note, on 02/08, CT scan showed concern for new complex collection/abscess between the 2 biliary stents in the proximal body, measuring 2x2x2.5cm. She underwent EUS with Dr. Moyer on 02/13, no abscess
found. CT on current admission does not mention presence of abscess.
LFTs significantly elevated with Tbili 2.6, AST 677, ALT 451, Alk phos 452, she previously only had mild elevation of ALT to 36 on 02/13, otherwise, normal liver enzymes.
02/18/2025 Abdominal ultrasound: severe intrahepatic and extrahepatic biliary dilatation suggesting occlusion of the plastic biliary stents in the common bile duct. There is distended gallbladder containing sludge. Noted pancreatic head
adenocarcinoma. Mild splenomegaly. Please see full dictation for additional detail.
Past Medical History
Past Medical History: Arrhythmias (PVC's), Asthma, GERD, Hypercholesterolemia and Other (allergic rhinitis, colon polyps, overactive bladder, post menopausal bleeding with prior endometrial polyps, Proctalgiafugax, DDD, pancreatitis 1999)
Past Surgical History: Gynecological (hysteroscopy/D+C, polypectomy, MIAN, BSO, pelvic floor reconstruction)
Social History
Tobacco: Former Smoker (35 years ago)
Alcohol: Former (prior to october 30 glass wine spritzer daily)
Drug: None
Personal:
Living: With Family
Employment: Retired
Family History
Family History: Other (no family hx GI malignancies, pancreatitis or pancreatic problems)
Allergies / Home Medications
Allergy/AdvReac Type Severity Reaction Status Date / Time
mold Allergy chest Verified 02/18/25 16:36
tighness
MILDEW Allergy chest Uncoded 02/18/25 16:36
tighness
�Medication �Instructions �Recorded
montelukast 10 mg tablet 10 mg PO HS Allergies 03/15/14
famotidine 40 mg tablet (Pepcid) 40 mg PO HS Gastrointestinal Issue 01/18/25
pkufhy-pskljogz-ygvoakl(pork)12,000-38,000-60,000 1 cap PO AC ENZYME 02/11/25
unit capsule,del rel (Creon)
oxycodone 5 mg tablet 5 mg PO Q6HPRN PRN severe pains 02/11/25
ipratropium 20 mcg-albuterol 100 1 puff inhalation QID PRN wheezing 02/15/25
mcg/actuation mist for inhalation
atorvastatin 10 mg tablet 10 mg PO DAILY 02/18/25
Review of Systems
-
History Source: Patient
All other systems: A 12 pt ROS was Negative except as stated above in HPI
Vital Signs
Temp Pulse Resp BP Pulse Ox
98.1 F 75 15 103/58 95
02/19/25 07:28 02/19/25 07:28 02/19/25 07:28 02/19/25 07:28 02/19/25 07:28
Physical Exam
Exam
General: Well Developed, Well Nourished and Comfortable
GI: Soft, Non Tender and Non Distended
Skin: Other (+Chest wall port; +jaundice)
Results
Diagnostic Image Results:
Prior GI Procedures:
EUS 02/12 did not show any evidence of abscess or visible collections, plastic stents with bile drainage showing patency noted. No intervention done.
CT Chest/Abdomen/Pelvis w IV contrast 02/08/2025
IMPRESSION:
1. Pancreatic neoplasm redemonstrated. Associated narrowing of the distal main portal vein/portal splenic confluence. Small amount of tumor thrombus within the distal main portal vein.
2. New possible abscess formation between the biliary stents and proximal pancreatic body measuring up to 2.0 x 2.0 x 2.5 cm.
Prior GI Procedures:
ERCP 01/22/2025
Impression:
- The major papilla appeared to be ulcerated.
- The major papilla appeared to be small.
- A single severe biliary stricture was found in the lower third of
the main bile duct. The stricture was malignant appearing.
- The common bile duct was severely dilated.
- A biliary sphincterotomy was performed.
- The stenosed segment of lower common bile duct was successfully
dilated.
- One plastic stent was placed into the right hepatic duct.
- One plastic stent was placed into the right hepatic duct.
EUS 01/21/2025
Impression:
- No gross lesions in the entire esophagus.
- No gross lesions in the entire stomach.
- Normal duodenal bulb, first portion of the duodenum and second
portion of the duodenum.
- A mass was identified in the pancreatic head. Tissue was
obtained from this exam, and results are pending. However, the
endosonographic appearance. This was staged T2 NX by endosonographic
criteria. Fine needle aspiration performed.
- There was dilation in the common bile duct which measured up to
16 mm.
- A cyst was found in the left lobe of the liver and in the
visualized portion of the liver and measured 18 mm by 15 mm.
- One enlarged lymph node was visualized in the gastrohepatic
ligament (level 18).
Assessment / Plan
-
70 yo F PMH pancreatic cancer, asthma, HLD, GERD presenting with cholangitis found have elevated LFTs and findings of biliary stent occlusion, c/f cholangitis.
-keep NPO for ERCP today with Dr. Moyer for stent exchange
-will increase bowel regimen following procedure and address dosage of Creon, as this is likely contributing
-updated Dr. Bess on imaging findings, no need for AC for tumor thrombus
-continue abx, ID following, currently on meropenem
-DVT ppx
Data Reviewed
-
CT Scan: Report Reviewed by me
Ultrasound: Report Reviewed by me
MRI: Report Reviewed by me
Old Records: Reviewed
-
-
Thank you for consultation and allowing me to participate in the patient's care. Please call the instructional technology director GI physician during the after hours with any questions or concerns.
--- NOTE | 2025-02-19 09:06 | W.PN.HOSP.TC ---
Today's Communication/Plan
-
see bold
Assessment / Plan
Assessment / Plan
HPI: 70y F with PMH significant for pancreatic cancer s/p prior ERCP with biliary stent who presents to ED complaining of epigastric abdominal pain and abnormal labs. Patient had biliary stent placed about 2 weeks ago. She felt fairly well
until yesterday when pain developed. She was sent for outpatient labs and then to the ED when these revealed significantly elevated LFTs. Patient reports fever at home today to 101.8. She also reports constipation with last BM about 5 days ago.
Small amount of bilious appearing emesis.
#Suspected ascending cholangitis
CT abdomen pelvis shows new possible abscess formation between the biliary stents and proximal pancreatic body
Appreciate GI and ID input, continue IV Merrem, patient for for ERCP with stent exchange today
#Biliary stent occlusion
Appreciate GI input, for ERCP with stent exchange today
Continue n.p.o., IV fluids
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
No anticoagulation needed as per GI
Follows w/ Dr. Paula Bess
#Constipation
She had a bowel movement today status post enema
GI will reduce her Creon dose, she will need more laxatives after her procedures
#GERD
Continue famotidine
#Stable asthma
Continue montelukast and bronchodilators as needed
#Hyperlipidemia
Continue statin
DVT prophylaxis�subcu Lovenox
Full code
Updated at bedside 02/19
Total time spent to see the patient on the floor, examine the patient, review data and lab results, discuss treatment plan with patient, nursing staff around 51 minutes.
Physical Exam
General: No acute distress
HEENT: Normocephalic, Atraumatic, EOMI, MMM
Respiratory: Clear to Auscultation bilaterally
Cardiac: Normal S1/S2, Regular Rate and Rhythm
GI: Soft, Nontender, Nondistended, Normal Bowel Sounds
Extremities: No Clubbing, Cyanosis, or Edema
Neuro: Nonfocal/Grossly Intact
Anticipated Discharge: > 48 hours
Subjective/Interval History
-
Date of Service: February 19, 2025
Patient reports her lower back pain resolved. She denies abdominal pain. No bowel movement for 1 week. Denies chest pain, denies shortness of breath. No fever, no vomiting.
Objective Data
-
Labs:
Laboratory Results
02/19/25 02/19/25
08:55 08:56
WBC Pending
Hgb Pending
Hct Pending
Plt Count Pending
Sodium Pending
Potassium Pending
Chloride Pending
Carbon Dioxide Pending
BUN Pending
Creatinine Pending
Glucose Pending
Calcium Pending
Total Bilirubin Pending
AST Pending
ALT Pending
Alkaline Phosphatase Pending
Vital Signs:
Vital Signs
Temp Pulse Resp BP Pulse Ox
98.1 F 75 15 103/58 95
02/19/25 07:28 02/19/25 07:28 02/19/25 07:28 02/19/25 07:28 02/19/25 07:28
I&O
02/18/25 02/19/25 02/20/25
06:59 06:59 06:59
Intake Total 600 / 600
Balance 600 / 600
[2025-02-19] MEDS: MIRALAX 17 GRAMS PO (09:20)
[2025-02-19] MEDS: SENOKOT-S 1 TABLET PO (09:21)
[2025-02-19 09:28] LABS: Hematocrit 31.9 % (37.0-47.0); Hemoglobin 10.3 g/dL (12.0-16.0); Mean Corp Hgb Conc. 32.3 g/dL (33.0-37.0); Mean Corpuscular Volume 89.4 fL (81.0-99.0); Platelet Count 210 10^3/uL (130-400); Red Cell Dist. Width 12.8 % (11.5-14.5)
[2025-02-19] MEDS: STERILE WATER FOR INJECTION 10 ML IV ×3 (10:06→21:03)
[2025-02-19] MEDS: MERREM 500 MG IV ×3 (10:06→21:03)
[2025-02-19 11:22] LABS: ALT (SGPT) 301 U/L (0-35); AST (SGOT) 243 U/L (14-36); Albumin 3.2 g/dl (3.5-5.0); Alkaline Phosphatase 436 U/L (38-126); Blood Urea Nitrogen 12 mg/dl (7-17); Calcium 8.3 mg/dl (8.4-10.2); Carbon Dioxide 26 mmol/L (22-30); Chloride 103 mmol/L (98-107); Estimated Creatinine Clearance 61 ml/min; Glucose 93 mg/dl (70-99); Potassium 4.2 mmol/L (3.5-5.1); Sodium 131 mmol/L (135-145); Total Protein 6.1 g/dl (6.3-8.2); eGFR > 60.00
[2025-02-19] MEDS: ZOFRAN 4 MG IV (11:35)
[2025-02-19 12:13] LABS: Hepatitis C Antibody Negative (Negative)
[2025-02-19] MEDS: COMPAZINE 10 MG IV (13:43)
--- NOTE | 2025-02-19 13:49 | CM ---
Reviewed the chart notes and spoke with the patient at the bedside. The patient resides with her spouse in a one story home with two steps to enter. The patient reports no DME/VN/SNF in the past. The patient confirmed her pharmacy of choice is
[facility]. CM continues to be available to patient/family and is monitoring medical plan for needs at discharge.
Plan: Discharge plans will depend on the patient's progress.
[2025-02-19] MEDS: PEPCID 20 MG PO (21:03)
[2025-02-19] MEDS: SINGULAIR 10 MG PO (21:03)
[2025-02-20] MEDS: NSS 1000 IV ×2 (03:07→14:30)
[2025-02-20] MEDS: STERILE WATER FOR INJECTION 10 ML IV ×4 (03:09→21:32)
[2025-02-20] MEDS: MERREM 500 MG IV ×4 (03:09→21:32)
--- NOTE | 2025-02-20 06:28 | DOWNTIME ---
There was a [employer] Client [employer]otype [employer] Manager Downtime on 02/20/2025 from 0100 to 02/20/2025 at 0215. Downtime documentation of patient's care, including medication administrations, has been reconciled in the electronic record per guidelines. Refer to the
patient's paper chart under the miscellaneous tab to see printed paper medication records and downtime forms.
[2025-02-20 08:00] VITALS: BP 118/58
[2025-02-20 08:11] LABS: Hematocrit 29.3 % (37.0-47.0); Hemoglobin 9.5 g/dL (12.0-16.0); Mean Corp Hgb Conc. 32.4 g/dL (33.0-37.0); Mean Corpuscular Volume 89.6 fL (81.0-99.0); Platelet Count 201 10^3/uL (130-400); Red Cell Dist. Width 12.7 % (11.5-14.5)
--- NOTE | 2025-02-20 09:10 | W.PN.HOSP.TC ---
Today's Communication/Plan
-
see bold
Assessment / Plan
Assessment / Plan
HPI: 70y F with PMH significant for pancreatic cancer s/p prior ERCP with biliary stent who presents to ED complaining of epigastric abdominal pain and abnormal labs. Patient had biliary stent placed about 2 weeks ago. She felt fairly well
until yesterday when pain developed. She was sent for outpatient labs and then to the ED when these revealed significantly elevated LFTs. Patient reports fever at home today to 101.8. She also reports constipation with last BM about 5 days ago.
Small amount of bilious appearing emesis.
#Suspected ascending cholangitis
#Enterobacter bacteremia
CT abdomen pelvis shows new possible abscess formation between the biliary stents and proximal pancreatic body
Appreciate GI input, no abscess visualized on endoscopic evaluation by GI on 02/19, GI signed off
Appreciate ID input, continue IV Merrem, follow-up on sensitivities
#Biliary stent occlusion
Appreciate GI input, status post ERCP with stent exchange 02/19
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
No anticoagulation needed as per GI
Follows w/ Dr. Paula Bess
#Constipation
Status post enema 02/19
Start laxatives sched tomorrow
#GERD
Continue famotidine
#Stable asthma
Continue montelukast and bronchodilators as needed
#Hyperlipidemia
Continue statin
DVT prophylaxis�subcu Lovenox
Full code
Updated at bedside 02/19
Total time spent to see the patient on the floor, examine the patient, review data and lab results, discuss treatment plan with patient, nursing staff around 41 minutes.
Physical Exam
General: No acute distress
HEENT: Normocephalic, Atraumatic, EOMI, MMM
Respiratory: Clear to Auscultation bilaterally
Cardiac: Normal S1/S2, Regular Rate and Rhythm
GI: Soft, Nontender, Nondistended, Normal Bowel Sounds
Extremities: No Clubbing, Cyanosis, or Edema
Neuro: Nonfocal/Grossly Intact
Anticipated Discharge: 24 - 48 hours
Subjective/Interval History
-
Date of Service: February 20, 2025
Patient had vomiting yesterday, now resolved. She tolerated her liquid breakfast. Denies chest pain, denies shortness of breath. No fever.
Objective Data
-
Labs:
Laboratory Results
02/20/25
07:53
WBC 6.0
Hgb 9.5 L
Hct 29.3 L
Plt Count 201
Sodium Pending
Potassium Pending
Chloride Pending
Carbon Dioxide Pending
BUN Pending
Creatinine Pending
Glucose Pending
Calcium Pending
Total Bilirubin Pending
AST Pending
ALT Pending
Alkaline Phosphatase Pending
Vital Signs:
Vital Signs
Temp Pulse Resp BP Pulse Ox
97.8 F 61 16 118/58 98
02/20/25 08:00 02/20/25 08:00 02/20/25 08:00 02/20/25 08:00 02/20/25 08:00
I&O
02/19/25 02/20/25 02/21/25
06:59 06:59 06:59
Intake Total 600 / 600 340 / 340
Balance 600 / 600 340 / 340
[2025-02-20 09:28] LABS: ALT (SGPT) 189 U/L (0-35); AST (SGOT) 76 U/L (14-36); Albumin 2.7 g/dl (3.5-5.0); Alkaline Phosphatase 298 U/L (38-126); Blood Urea Nitrogen 16 mg/dl (7-17); Calcium 8.1 mg/dl (8.4-10.2); Carbon Dioxide 25 mmol/L (22-30); Chloride 108 mmol/L (98-107); Estimated Creatinine Clearance 61 ml/min; Glucose 96 mg/dl (70-99); Magnesium 2.3 mg/dl (1.6-2.3); Potassium 4.4 mmol/L (3.5-5.1); Sodium 138 mmol/L (135-145); Total Protein 5.2 g/dl (6.3-8.2); eGFR > 60.00
--- NOTE | 2025-02-20 09:45 | W.PN.ID1 ---
Date of Service
Date of Service: February 20, 2025
Today's Communication
Continue antibiotics.
Assessment / Plan
Obstruction of biliary stents
Ascending cholangitis
Enterobacter bacteremia
Transaminitis
Elevated bilirubin
Normal white count with left shift
Pancreatic cancer (Dx 01/21/2025)
asthma
hyperlipidemia
GERD
Recommendations:
Continue with empiric meropenem (d#3).
Blood cultures with Enterobacter. Await final susceptibility data to guide further antimicrobial selection/potential de-escalation
Follow white count and temperature curve.
Trend LFTs and bilirubin.
Chief Complaint
-: Bacteremia
Subjective / Review of Systems
Patient seen and examined. Reports feeling improved today. S/p ERCP 02/19, with repositioning/reinsertion of biliary stents.
Review of Systems: No Fever and No Chills
Vital Signs / Physical Exam
Vital Signs
Vital Signs
Temp Pulse Resp BP Pulse Ox
97.8 F 61 16 118/58 98
02/20/25 08:00 02/20/25 08:00 02/20/25 08:00 02/20/25 08:00 02/20/25 08:00
Physical Exam
Constitutional: No Acute Distress, Comfortable and Non-toxic
Eyes: No Conjunctival Hemorrhage and Sclera Anicteric
Cardiovascular: S1/S2; Negative S3/S4
Pulmonary: Non Labored
Gastrointestinal: Soft, Non Tender, Non Distended and Normal Bowel Sounds
Neurological: Awake and Alert
Lines: Port (Right ACW; no tenderness or erythema)
Objective Data
Lab Data
Lab Results
02/20/25 07:53
02/20/25 07:53
Estimated Creat Clear 61 ml/min 02/20/25 07:53
Lactic Acid 0.8 mmol/L (0.7-2.0) 02/19/25 00:39
Total Bilirubin 1.1 mg/dl (0.2-1.3) D 02/20/25 07:53
AST 76 U/L (14-36) H 02/20/25 07:53
ALT 189 U/L (0-35) H 02/20/25 07:53
Alkaline Phosphatase 298 U/L (38-126) H 02/20/25 07:53
Most recent labs reviewed.
Micro Results:
02/18/25 20:49 Blood Culture - Preliminary
Blood/Venous Enterobacter cloacae complex
Gram Stain - Preliminary
02/18/25 20:49 Blood Culture - Preliminary
Blood/Venous No Growth in 24 hours- Final report to follow
Imaging:
02/18/2025 CT abdomen/pelvis with IV contrast: there is severe intrahepatic and extrahepatic biliary dilatation, which is new from 02/08/2025 study, consistent with acute occlusion of noted biliary stents. There is a 5.7 cm pancreatic head
adenocarcinoma. There is malignant invasion and obstruction of the superior mesenteric vein, with new thrombus in the SMV proximal to the occlusion. There is a small amount of nonocclusive thrombus in the main portal vein. There are collateral
varices throughout the upper abdomen. There is a large amount of fecal material throughout the proximal colon consistent with severe constipation. Moderate to severe diverticulosis in the sigmoid colon. Please see full dictation for additional
detail.
02/18/2025 Abdominal ultrasound: severe intrahepatic and extrahepatic biliary dilatation suggesting occlusion of the plastic biliary stents in the common bile duct. There is distended gallbladder containing sludge. Noted pancreatic head
adenocarcinoma. Mild splenomegaly. Please see full dictation for additional detail.
--- NOTE | 2025-02-20 09:45 | W.PN.GI.CBS2 ---
Today's Communication / Plan
-
LFTs all improving. okay for d/c today, abx per ID. Follow-up with Dr. Moyer scheduled. GI will sign off, please call with questions
Assessment / Plan
-
70 yo F PMH pancreatic cancer, asthma, HLD, GERD presenting with cholangitis found have elevated LFTs and findings of biliary stent occlusion, c/f cholangitis.
-s/p ERCP 02/[address] Moyer, malignant biliary stricture seen in the lower third of the main bile duct, CHD, right and left main hepatic ducts were moderately dilated, 2 plastic stents were removed and a plastic stent was placed into the left and
right hepatic duct
-LFTs this morning all improving, bili now normal
-Recommend at least completing 5 days of abx-- ID had recommended meropenem due to this 'abscess' however, none has actually been visualized on endoscopic evaluation by Dr. Moyer. Would defer PO abx to ID.
-Outpatient f/u with Dr. Moyer scheduled on 05/24 @ 11:45 AM.
-bowel regimen
GI will sign off, please call with questions
Subjective
Subjective
Date of Service: February 20, 2025
Patient seen in follow-up this morning. s/p ERCP with stent exchange yesterday. She reports feeling less fatigued, overall, no complaints. LFTs improved on AM labs.
ERCP 02/19/25:
Impression:
- Two stents from the biliary tree were seen in the major papilla.
- A single moderate biliary stricture was found in the lower third
of the main bile duct. The stricture was malignant appearing.
- The common hepatic duct, right main hepatic duct and left main
hepatic duct were moderately dilated.
- Two stents were removed from the biliary tree.
- One plastic stent was placed into the left hepatic duct.
- One plastic stent was placed into the right hepatic duct.
Objective
Data Reviewed
Laboratory Data:
Laboratory Results
02/20/25 07:53
02/20/25 07:53
Laboratory Results
Magnesium 2.3 mg/dl (1.6-2.3) 02/20/25 07:53
Total Bilirubin 1.1 mg/dl (0.2-1.3) D 02/20/25 07:53
AST 76 U/L (14-36) H 02/20/25 07:53
ALT 189 U/L (0-35) H 02/20/25 07:53
Alkaline Phosphatase 298 U/L (38-126) H 02/20/25 07:53
Vital Signs and I&O:
Vital Signs
Temp Pulse Resp BP Pulse Ox
97.8 F 61 16 118/58 98
02/20/25 08:00 02/20/25 08:00 02/20/25 08:00 02/20/25 08:00 02/20/25 08:00
I&O
02/19/25 02/20/25 02/21/25
06:59 06:59 06:59
Intake Total 600 / 600 340 / 340
Balance 600 / 600 340 / 340
Physical Exam
Physical Exam
HEENT: Anicteric and Moist mucous membranes
GI: Soft, Non Distended, Non Tender and Normal Bowel Sounds
[2025-02-20 15:55] VITALS: BP 128/67
[2025-02-20] MEDS: SENOKOT-S 1 TABLET PO (17:04)
[2025-02-20] MEDS: ZENPEP DELAYED RELEASE CAPSULE 1 CAPSULE PO (17:04)
[2025-02-20] MEDS: PEPCID 20 MG PO (21:27)
[2025-02-20] MEDS: SINGULAIR 10 MG PO (21:28)
[2025-02-20] MEDS: ZENPEP DELAYED RELEASE CAPSULE PO (21:31)
[2025-02-20 23:20] VITALS: BP 134/56
[2025-02-21] MEDS: MERREM 500 MG IV ×2 (04:04→09:28)
[2025-02-21] MEDS: STERILE WATER FOR INJECTION 10 ML IV ×2 (04:04→09:28)
[2025-02-21] MEDS: DILAUDID 0.5 MG IV (04:21)
[2025-02-21 07:43] VITALS: BP 124/70
[2025-02-21 08:00] LABS: ALT (SGPT) 128 U/L (0-35); AST (SGOT) 36 U/L (14-36); Albumin 2.6 g/dl (3.5-5.0); Alkaline Phosphatase 254 U/L (38-126); Blood Urea Nitrogen 10 mg/dl (7-17); Calcium 8.1 mg/dl (8.4-10.2); Carbon Dioxide 29 mmol/L (22-30); Chloride 109 mmol/L (98-107); Estimated Creatinine Clearance 61 ml/min; Glucose 137 mg/dl (70-99); Potassium 4.4 mmol/L (3.5-5.1); Sodium 136 mmol/L (135-145); Total Protein 5.2 g/dl (6.3-8.2); eGFR > 60.00
[2025-02-21 08:14] LABS: Hematocrit 29.6 % (37.0-47.0); Hemoglobin 9.7 g/dL (12.0-16.0); Mean Corp Hgb Conc. 32.8 g/dL (33.0-37.0); Mean Corpuscular Volume 90.0 fL (81.0-99.0); Platelet Count 231 10^3/uL (130-400); Red Cell Dist. Width 12.8 % (11.5-14.5)
[2025-02-21] MEDS: ZENPEP DELAYED RELEASE CAPSULE 1 CAPSULE PO ×2 (08:38→12:38)
--- NOTE | 2025-02-21 08:57 | W.PN.HOSP.TC ---
Addendum entered and electronically signed by Charlie Jiménez MD 02/22/25 15:06:
#Moderate protein calorie malnutrition
Encourage oral intake
Original Note:
Today's Communication/Plan
-
Discharge today
Assessment / Plan
Assessment / Plan
HPI: 70y F with PMH significant for pancreatic cancer s/p prior ERCP with biliary stent who presents to ED complaining of epigastric abdominal pain and abnormal labs. Patient had biliary stent placed about 2 weeks ago. She felt fairly well
until yesterday when pain developed. She was sent for outpatient labs and then to the ED when these revealed significantly elevated LFTs. Patient reports fever at home today to 101.8. She also reports constipation with last BM about 5 days ago.
Small amount of bilious appearing emesis.
#Suspected ascending cholangitis
#Enterobacter bacteremia
CT abdomen pelvis shows new possible abscess formation between the biliary stents and proximal pancreatic body
Appreciate GI input, no abscess visualized on endoscopic evaluation by GI on 02/19, GI signed off
Appreciate ID input, IV Merrem changed to ciprofloxacin
Medically stable for discharge on ciprofloxacin 500 mg twice a day for 8 more days
Follow-up with PCP in 1 week, oncology as soon as possible, and GI in 2-3 weeks
#Biliary stent occlusion
Appreciate GI input, status post ERCP with stent exchange 02/19
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
No anticoagulation needed as per GI
Seen by oncology, follow-up w/ Dr. Paula Bess in the office
#Constipation
Laxatives
#GERD
Continue famotidine
#Stable asthma
Continue montelukast and bronchodilators as needed
#Hyperlipidemia
Continue statin
DVT prophylaxis�subcu Lovenox
Full code
Updated at bedside 02/20
Physical Exam
General: No acute distress
HEENT: Normocephalic, Atraumatic, EOMI, MMM
Respiratory: Clear to Auscultation bilaterally
Cardiac: Normal S1/S2, Regular Rate and Rhythm
GI: Soft, Nontender, Nondistended, Normal Bowel Sounds
Extremities: No Clubbing, Cyanosis, or Edema
Neuro: Nonfocal/Grossly Intact
Anticipated Discharge: Today
Subjective/Interval History
-
Date of Service: February 21, 2025
Patient reports intermittent mild left-sided abdominal pain. Denies chest pain, denies shortness of breath. No fever, no vomiting. She does report constipation.
Objective Data
-
Labs:
Laboratory Results
02/21/25
07:14
WBC 4.8
Hgb 9.7 L
Hct 29.6 L
Plt Count 231
Sodium 136
Potassium 4.4
Chloride 109 H
Carbon Dioxide 29
BUN 10
Creatinine 0.7
Glucose 137 H
Calcium 8.1 L
Total Bilirubin 0.8
AST 36
ALT 128 H
Alkaline Phosphatase 254 H
Vital Signs:
Vital Signs
Temp Pulse Resp BP Pulse Ox
97.9 F 63 16 124/70 98
02/21/25 07:43 02/21/25 07:43 02/21/25 07:43 02/21/25 07:43 02/21/25 07:43
I&O
02/20/25 02/21/25 02/22/25
06:59 06:59 06:59
Intake Total 340 / 340 480 / 480
Balance 340 / 340 480 / 480
[2025-02-21] MEDS: SENOKOT-S 2 TABLET PO (09:29)
--- NOTE | 2025-02-21 12:02 | W.PN.ID1 ---
Date of Service
Date of Service: February 21, 2025
Today's Communication
Continue antibiotics; change to oral ciprofloxacin.
Assessment / Plan
Obstruction of biliary stents
Ascending cholangitis
Enterobacter bacteremia
Transaminitis
Elevated bilirubin
Normal white count with left shift
Pancreatic cancer (Dx 01/21/2025)
asthma
hyperlipidemia
GERD
Recommendations:
Patient is s/p biliary stent exchange
Blood cultures with Enterobacter cloacae susceptible to ciprofloxacin.
Transition to ciprofloxacin 500 mg p.o. BID for an additional 8 days.
No objection to discharge from a Infectious Disease standpoint.
Chief Complaint
-: Bacteremia
Subjective / Review of Systems
Review of Systems: No Fever, No Chills and No Abdominal Pain
Vital Signs / Physical Exam
Vital Signs
Vital Signs
Temp Pulse Resp BP Pulse Ox
97.9 F 63 16 124/70 98
02/21/25 07:43 02/21/25 07:43 02/21/25 07:43 02/21/25 07:43 02/21/25 07:43
Physical Exam
Constitutional: No Acute Distress, Comfortable and Non-toxic
Eyes: Sclera Anicteric
Cardiovascular: S1/S2; Negative S3/S4
Pulmonary: Non Labored
Gastrointestinal: Soft, Non Tender and Non Distended
Neurological: Awake and Alert
Objective Data
Lab Data
Lab Results
02/21/25 07:14
02/21/25 07:14
Estimated Creat Clear 61 ml/min 02/21/25 07:14
Lactic Acid 0.8 mmol/L (0.7-2.0) 02/19/25 00:39
Total Bilirubin 0.8 mg/dl (0.2-1.3) 02/21/25 07:14
AST 36 U/L (14-36) 02/21/25 07:14
ALT 128 U/L (0-35) H 02/21/25 07:14
Alkaline Phosphatase 254 U/L (38-126) H 02/21/25 07:14
Most recent labs reviewed.
Micro Results:
02/18/25 20:49 Blood Culture - Preliminary
Blood/Venous Enterobacter cloacae
Gram Stain - Preliminary
02/18/25 20:49 Blood Culture - Preliminary
Blood/Venous No Growth in 48 hours- Final report to follow
Imaging:
02/18/2025 CT abdomen/pelvis with IV contrast: there is severe intrahepatic and extrahepatic biliary dilatation, which is new from 02/08/2025 study, consistent with acute occlusion of noted biliary stents. There is a 5.7 cm pancreatic head
adenocarcinoma. There is malignant invasion and obstruction of the superior mesenteric vein, with new thrombus in the SMV proximal to the occlusion. There is a small amount of nonocclusive thrombus in the main portal vein. There are collateral
varices throughout the upper abdomen. There is a large amount of fecal material throughout the proximal colon consistent with severe constipation. Moderate to severe diverticulosis in the sigmoid colon. Please see full dictation for additional
detail.
02/18/2025 Abdominal ultrasound: severe intrahepatic and extrahepatic biliary dilatation suggesting occlusion of the plastic biliary stents in the common bile duct. There is distended gallbladder containing sludge. Noted pancreatic head
adenocarcinoma. Mild splenomegaly. Please see full dictation for additional detail.
Care Review
Plan reviewed with: Physician (Hospitalist)
--- NOTE | 2025-02-21 12:52 | CON.ONC ---
Consultation
-
Date Consultation Requested: 02/20/25
Date Consultation Performed: 02/21/25
Requesting Provider: Dr. Jiménez
Performing Provider: Dr. Fontana
Reason for Consultation: pancreatic cancer
Impression
Impression
pancreatic cancer
obstructed biliary stent
cholangitis
Plan
Plan
1. biliary obstruction w/ cholangitis
-s/p ERCP w/ replacement of stents yesterday
-antibiotics for cholangitis as per ID
2. Pancreatic cancer - locally advanced
-f/u as outpt for chemotherapy dina w/ Dr. Bess - next week
Patient History
History of Present Illness
70y/o female seen in consultation today regarding newly diagnosed locally advanced pancreatic cancer.
The patient initially presented in October w/ abdominal an back pain. CT imaging at that time revealed pancreatitis w/o discrete pancreatic mass. Symptoms improved temporarily, prior to re-presentation in December w/ jaunduce. Abdominal MRI revealed
2.8 x 1.9cm pancreatic head mass abutting the SMV. She underwent ERCP w/ sphinterotomy and stent placement as well as EUS w/ biopsy revealing adenocarcinoma.
She has met w/ medical oncology as well as pancreaticobiliary surgery at [facility] w/ neoadjuvant FOLFIRINOX recommended. She has established care w/ Dr. Bess locally at [place] and was planning to start chemotherapy this week.
However, upon presentation, abdominal pain was worse, and w/ increased LFTs was referred to the [place] ER. CT imaging on 02/18 revealed severe biliary ductal dilation c/w acute occlusion of biliary stents, 5.7cm pancreatic head mass, and small
amount of non-occlusive tumor thrombus in the main portal vein. She underwent ERCP procedure on 02/19 w/ Dr. Moyer w/ new stent placement.
Blood cultures were drawn revealing Enterobacter, resulting in initiation of antibiotics in the setting of cholangitis. Culture sensitivities revealed sensitivity to cipro.
She is feeling better today, no fevers, less pain. Tolerating PO, no nausea, vomiting. No SOB or chest pain.
Past-Medical/Surgical History
PMH:
locally advanced pancreatic cancer
obstructive jaundice - s/p biliary stents
Arrhythmias (PVC's)
Asthma
GERD
Hypercholesterolemia
allergic rhinitis
colon polyps
overactive bladder
post menopausal bleeding with prior endometrial polyp
PSH:
Gynecological (hysteroscopy/D+C, polypectomy, MIAN, BSO, pelvic floor reconstruction)
ERCPs - biliary stents
EUS w/ biopsy
Social History
Tobacco: Former Smoker (35 years ago)
Alcohol: Former (prior to october 30 glass wine spritzer daily)
Family History
noncontributory
Allergies: NKDA
Patient Medication
�Medication �Instructions �Recorded �Confirmed �Last Taken �Type
montelukast 10 mg tablet 10 mg PO HS Allergies 03/15/14 02/18/25 02/14/25 History
famotidine 40 mg tablet (Pepcid) 40 mg PO HS Gastrointestinal Issue 01/18/25 02/18/25 02/14/25 History
mmwekh-slnkbbzy-raaglys(pork)12,000-38,000-60,000 1 cap PO AC ENZYME 02/11/25 02/18/25 02/14/25 History
unit capsule,del rel (Creon)
oxycodone 5 mg tablet 5 mg PO Q6HPRN PRN severe pains 02/11/25 02/18/25 02/10/25 History
ipratropium 20 mcg-albuterol 100 1 puff inhalation QID PRN wheezing 02/15/25 02/18/25 Unknown History
mcg/actuation mist for inhalation
atorvastatin 10 mg tablet 10 mg PO DAILY 02/18/25 02/18/25 Unknown History
Active Medications
Generic Name Dose Route Start Last Admin
Trade Name Freq PRN Reason Stop Dose Admin
Albuterol/Ipratropium 3 ml 02/18/25 23:56
Ipratropium 0.5/Albuterol 3 Mg (3 Ml Ampul) INH
R QIDPRN PRN
wheezing
Bisacodyl 10 mg 02/18/25 23:41
Bisacodyl 10 Mg Rectal Suppository RECTAL 03/18/25 23:40
[id number] PRN
constipation
Ciprofloxacin 500 mg 02/21/25 20:00
Ciprofloxacin 500 Mg Tablet PO
BID MUMTAZ
Famotidine 20 mg 02/19/25 22:00 02/20/25 21:27
Famotidine 20 Mg Tablet PO 03/19/25 21:59 20 mg
HS MUMTAZ Administration
Hydromorphone HCl 0.5 mg 02/19/25 00:00 02/21/25 04:21
Hydromorphone 0.5 Mg/0.5 Ml Syringe IV 03/05/25 00:00 0.5 mg
Q4HPRN PRN Administration
severe pain
Montelukast Sodium 10 mg 02/19/25 22:00 02/20/25 21:28
Montelukast Sodium 10 Mg Tablet PO 03/19/25 21:59 10 mg
HS MUMTAZ Administration
Ondansetron HCl 4 mg 02/19/25 04:00 02/19/25 11:35
Ondansetron 4 Mg/2 Ml Vial IV 03/19/25 03:59 4 mg
Q6HPRN PRN Administration
nausea and vomiting
Oxycodone HCl 5 mg 02/18/25 23:41
Oxycodone 5 Mg Regular Release Tablet PO 03/04/25 23:40
Q6HPRN PRN
severe pains
Pancrelipase 1 capsule 02/20/25 16:30 02/21/25 12:38
Pancrelipase (Zenpep) Delayed Release Capsule PO 03/20/25 16:29 1 capsule
ACHS MUMTAZ Administration
Polyethylene Glycol 17 grams 02/18/25 23:41 02/19/25 09:20
Polyethylene Glycol Powder 17 Grams Packet PO 03/18/25 23:40 17 grams
DAILYPRN PRN Administration
constipation
Senna/Docusate Sodium 2 tablet 02/21/25 09:00 02/21/25 09:29
Docusate W/Senna (Ashley-Colace) Tablet PO 03/21/25 08:59 2 tablet
BID MUMTAZ Administration
Sodium Chloride 0 flush 02/19/25 13:00
Sodium Chloride 0.9% (Flush) Syringe IV 03/19/25 12:59
PER PROTOCOL MUMTAZ
Review of Systems
-
A ROS was performed w/ pertinent findings as per HPI.
Physical Exam
-
General: Well Developed and No Apparent Distress
HEENT: Negative Jaundice
Cardiology: Normal Sinus Rhythm
Pulmonary: Clear
Neurology: Non Focal
Labs
Lab Results
WBC 4.8 10^3/uL (4.8-10.8) 02/21/25 07:14
RBC 3.29 10^6/uL (4.20-5.40) L 02/21/25 07:14
Hgb 9.7 g/dL (12.0-16.0) L 02/21/25 07:14
Hct 29.6 % (37.0-47.0) L 02/21/25 07:14
MCV 90.0 fL (81.0-99.0) 02/21/25 07:14
MCH 29.5 pg (27.0-31.0) 02/21/25 07:14
MCHC 32.8 g/dL (33.0-37.0) L 02/21/25 07:14
RDW 12.8 % (11.5-14.5) 02/21/25 07:14
Plt Count 231 10^3/uL (130-400) 02/21/25 07:14
MPV 9.9 fL (7.4-10.4) 02/21/25 07:14
Creatinine 0.7 mg/dL (0.6-1.0) 02/21/25 07:14
Vital Signs
Vital Signs
Temp Pulse Resp BP Pulse Ox
97.9 F 63 16 124/70 98
02/21/25 07:43 02/21/25 07:43 02/21/25 07:43 02/21/25 07:43 02/21/25 07:43
--- NOTE | 2025-02-21 14:06 | W.DCSUMMARY ---
Discharge Summary
Discharge Data
Date of Admission: 02/18/25
Date of Discharge: 02/21/25
-
Pending Results: No
Hospital Course
Discharge diagnosis:
Ascending cholangitis secondary to clogged biliary stent
Enterobacter bacteremia
Biliary stent occlusion
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
Constipation
Gastroesophageal reflux disease
Consults: GI, oncology, ID
CT abd/pelvis:
1. SEVERE INTRAHEPATIC and EXTRAHEPATIC BILIARY DILATATION which is new from 02/08/2025 consistent with acute occlusion of the biliary stents.
2. 5.7 cm PANCREATIC HEAD ADENOCARCINOMA.
3. 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
4. Small amount of nonocclusive thrombus in the main portal vein.
5. Collateral varices throughout the upper abdomen.
6. Mild splenomegaly.
7. Large amount of fecal material throughout the proximal colon consistent with SEVERE CONSTIPATION.
8. Moderate to severe diverticulosis in the sigmoid colon.
9. Severe discogenic degenerative disease at L3/L4, L4/L5, and L5/S1.
Procedures:
02/19/2025
ERCP with biliary stent exchange by Dr. Moyer
Hospital course:
70-year-old female with a past medical history of recently diagnosed pancreatic cancer and recent biliary stent placement 01/22/2025, who presented with epigastric abdominal pain and elevated liver function tests. She was found to have Enterobacter
bacteremia secondary to ascending cholangitis secondary to clogged biliary stent. Patient was seen in conjunction with ID, GI, and oncology. She was treated with IV Merrem. Blood cultures grew out Enterobacter. She was transitioned to
ciprofloxacin.
Patient was recently diagnosed with pancreatic cancer, and had biliary stent placement on 01/22/2025. CT of the abdomen and pelvis shows clogged biliary stent, pancreatic head adenocarcinoma, new thrombus in the SMV, and constipation. Per GI, she
does not need anticoagulation for her tumor thrombus. She had biliary stent exchange by Dr. Moyer on 02/19/2025. She received laxatives, and had a bowel movement.
Patient was seen in conjunction of oncology for her recently diagnosed pancreatic cancer. She follows with Dr. Paula Bess. Arrangements have been made for outpatient chemo.
Patient's liver function tests improved. She tolerated solids. She is medically stable and cleared by ID for discharge on ciprofloxacin 500 mg twice a day for 8 more days. She needs to follow-up with her PCP in 1 week, oncology as soon as
possible, and GI in the office as directed.
Disposition: Home self-care
Discharge planning: Required 36 minutes
Discharge Plan
-
Patient Disposition: Home (Routine Discharge)
Discharge Diagnosis/Procedures: Ascending colon gyrus, bacteremia, clogged biliary stent
Condition: Good
Diet: Other diet
Additional Diets: High protein, low fat
Activity: As tolerated
Driving Restrictions: As prior to admission
Activity Restrictions/Additional Instructions:
Take ciprofloxacin 500 mg p.o. twice daily for an additional 8 days.
Please follow-up with your PCP in 1 week, oncology as soon as possible.
Also follow-up with your usual GI doctor.
Referrals:
Trini Ingram PA-C [Family Provider, Internal Medicine] - in one week
Paula Bess MD [Active, Oncology] - in less than 1 week
Felicia Bo MD [Active, Gastroenterology] - in two to three weeks
Prescriptions:
New
sennosides-docusate sodium [Senna Plus] 8.6-50 mg Tablet
2 tab PO BID PRN (Reason: Constipation) Qty: 60 0RF
ciprofloxacin HCl 500 mg Tablet
500 mg PO BID 8 Days Qty: 17 0RF
Continued
montelukast 10 MG tablet
10 mg PO HS
famotidine [Pepcid] 40 mg Tablet
40 mg PO HS
ipratropium-albuterol 20-100 mcg/actuation Mist
1 puff INHALATION QID PRN (Reason: wheezing)
oxycodone 5 mg Tablet
5 mg PO Q6HPRN PRN (Reason: severe pains)
Creon 12,000-38,000 -60,000 unit Capsule,Delayed Release(Dr/Ec)
1 cap PO AC
atorvastatin 10 mg tablet
10 mg PO DAILY
Discharge Orders:
Discharge Patient (As Directed); Ordered 02/21/25
Ordered By: Charlie Jiménez
Discharge Date and Time
Discharge Date/Time: 02/21/25 15:30
Print Language: TUVALUAN
--- NOTE | 2025-02-21 14:55 | CM ---
Chart reviewed. Patient will d/c home today
Spoke w/ patient, agreeable to d/c. IMM verbally reviewed
Spouse will transport home
No CM needs identified at this time
Plan: Home, no needs
[2025-02-21 15:18] VITALS: BP 133/69
--- NOTE | 2025-02-22 08:14 | PN.CDI ---
CDI
- -
CDI:
Physician Documentation Request
Admit Date: 02/18/25 22:08
Dear Doctor,
02/21 Hoisting Engineer Assessment: 'During visit RD able to observe moderate depression at temples, orbital and clavicle. Pt meeting criteria for moderate protein-calorie malnutrition (ASPEN/AND guidelines, chronic illness) as per weight loss,
visible fat/muscle loss and estimated intakes of <75% for greater than 1 month.'
Based on the above information and your assessment, which of the following most accurately represents the patient's nutritional status?
Moderate protein calorie malnutrition
Other
Social Circle Criteria (ACP Hospitalist 2017)
2 or more criteria must be present for either
non severe or severe malnutrition
Note that the criteria differs related to the
presence of an acute or chronic illness
Acute Illness Chronic Illness
Energy Intake Non Severe: <75% for >7 days Non Severe: <75% for >1 month
Severe: <50% for >5 days Severe: <75% for >1 month
Weight Loss Non Severe: 1-2% over 1 week Non Severe: 5% over 1 month
5% over 1 month 7.5% over 3 months
7.5% over 3 months 10% over 6 months
1 year N/A 20% over 1 year
Severe: >2% over 1 week Severe: >5% over 1 month
>5% over 1 month >7.5% over 3 months
>7.5% over 3 months >10% over 6 months
1 year N/A >20% over 1 year
Body Fat Non Severe: Mild Decrease Non Severe: Mild Loss
Severe: Moderate Decrease Severe: Severe Loss
Muscle Mass Non Severe: Mild Decrease Non Severe: Mild Loss
Severe: Moderate Decrease Severe: Severe Loss
Fluid Accumulation Non Severe: Mild Accumulation Non Severe: Mild Accumulation
Severe: Moderate to severe Severe: Moderate to severe
accumulation accumulation
Reduced Sleep Medicine Physician Strength Non Severe: N/A Non Severe: N/A
Severe: Measurably reduced Severe: Measurably reduced
Additional criteria that can be used to Determine if Mild or Moderate Malnutrition (Merck Manual 2018)
Mild Moderate Severe
Albumin gm/dl <3.0 gm/dl <2.5 gm/dl <2.0 gm/dl
Pre Albumin mg/dl <15 gm/dl <10 mg/dl <5.0 mg/dl
BMI <18.5 <17 <16
Use of terms such as suspected, likely, concern for, or probable (associated with a specific diagnosis that is being evaluated, monitored, or treated as if it exists) are acceptable and can be coded in the inpatient setting, when documented at the
time of discharge.
Thank you,
Marie Liu RN, BSN
CDI Specialist
Available via [facility] text
Please use your independent medical judgment in providing your response.
== END 2025-02-21 15:30 | disposition home or self-care (01) | DRG 919 ==
LOC: 2 NORTH 22:08
PROVIDERS: Internal Medicine Gastroenterology; Nurse Practitioner Family; ADMITTING PHYSICIAN Hospitalist; ATTENDING PHYSICIAN Family Medicine; CONSULT PHYSICIAN Internal Medicine Hematology & Oncology; EMERGENCY PHYSICIAN Emergency Medicine; FAMILY PHYSICIAN Physician Assistant; OTHER PHYSICIAN Internal Medicine; OTHER PHYSICIAN Internal Medicine Infectious Disease
PROC: 0F758DZ Dilation of Right Hepatic Duct with Intraluminal Device, Via Natural or Artificial Opening Endoscopic (ICD-10-PCS; 2025-02-19)
PROC: BF111ZZ Fluoroscopy of Biliary and Pancreatic Ducts using Low Osmolar Contrast (ICD-10-PCS; 2025-02-19)
PROC: 0F768DZ Dilation of Left Hepatic Duct with Intraluminal Device, Via Natural or Artificial Opening Endoscopic (ICD-10-PCS; 2025-02-19)
PROC: 0FPB8DZ Removal of Intraluminal Device from Hepatobiliary Duct, Via Natural or Artificial Opening Endoscopic (ICD-10-PCS; 2025-02-19)
DX: T85.590A Other mechanical complication of bile duct prosthesis, initial encounter (principal); K83.1 Obstruction of bile duct; C25.0 Malignant neoplasm of head of pancreas; I87.1 Compression of vein; K83.09 Other cholangitis; E44.0 Moderate protein-calorie malnutrition; R78.81 Bacteremia; E78.00 Pure hypercholesterolemia, unspecified; K59.00 Constipation, unspecified; K21.9 Gastro-esophageal reflux disease without esophagitis; J45.909 Unspecified asthma, uncomplicated; K57.30 Diverticulosis of large intestine without perforation or abscess without bleeding; N32.81 Overactive bladder; N95.0 Postmenopausal bleeding; E78.5 Hyperlipidemia, unspecified; Z87.891 Personal history of nicotine dependence; Z79.899 Other long term (current) drug therapy; Z68.20 Body mass index [BMI] 20.0-20.9, adult; B96.89 Other specified bacterial agents as the cause of diseases classified elsewhere
CPT/HCPCS: 36415; 36561; 74177; 74330; 76000; 76700; 76937; 77001; 80053; 83605; 83735; 85025; 85027; 86803; 87040; 87077; 87154; 87186; 87205; 93005; 96361; 96374; 99152; 99153; 99285; C1769; C2617; J1335; Q9967

== ENCOUNTER 2025-02-26 09:20 | Outpatient (RCR) | payer MEDICARE, SELFPAY | END 2025-02-26 23:59 | disposition home or self-care (01) | LOC: RPT 09:20 | PROVIDERS: ATTENDING PHYSICIAN Internal Medicine Hematology & Oncology; FAMILY PHYSICIAN Physician Assistant | DX: C25.0 Malignant neoplasm of head of pancreas (principal); R53.0 Neoplastic (malignant) related fatigue; Z73.6 Limitation of activities due to disability; M62.81 Muscle weakness (generalized) | CPT/HCPCS: 97110; 97163; 97164; 97530 ==

== ENCOUNTER → 2025-03-04 08:33 | Outpatient (REF) | payer MEDICARE, SELFPAY ==
[2025-03-04 10:02] LABS: Hematocrit 34.9 % (37.0-47.0); Hemoglobin 11.4 g/dL (12.0-16.0); Mean Corp Hgb Conc. 32.7 g/dL (33.0-37.0); Mean Corpuscular Volume 84.5 fL (81.0-99.0); Nucleated Red Blood Cells % 0 %; Platelet Count 273 10^3/uL (130-400); Red Cell Dist. Width 13.2 % (11.5-14.5)
[2025-03-04 10:20] LABS: ALT (SGPT) 22 U/L (0-35); AST (SGOT) 18 U/L (14-36); Albumin 3.8 g/dl (3.5-5.0); Alkaline Phosphatase 139 U/L (38-126); Blood Urea Nitrogen 16 mg/dl (7-17); Calcium 9.2 mg/dl (8.4-10.2); Carbon Dioxide 31 mmol/L (22-30); Chloride 103 mmol/L (98-107); Glucose 146 mg/dl (70-99); Potassium 4.6 mmol/L (3.5-5.1); Sodium 138 mmol/L (135-145); Total Protein 6.7 g/dl (6.3-8.2); eGFR > 60.00
== END ==
LOC: REG 08:33
PROVIDERS: ATTENDING PHYSICIAN Internal Medicine Hematology & Oncology; FAMILY PHYSICIAN Physician Assistant
DX: C25.0 Malignant neoplasm of head of pancreas (principal)
CPT/HCPCS: 36415; 80053; 85025

== ENCOUNTER 2025-03-14 08:39 | Outpatient (RCR) | payer MEDICARE, SELFPAY | END 2025-03-14 23:59 | disposition home or self-care (01) | LOC: RPT 08:39 | PROVIDERS: ATTENDING PHYSICIAN Internal Medicine Hematology & Oncology; FAMILY PHYSICIAN Physician Assistant | DX: C25.0 Malignant neoplasm of head of pancreas (principal); R53.0 Neoplastic (malignant) related fatigue; Z73.6 Limitation of activities due to disability; M62.81 Muscle weakness (generalized); K59.00 Constipation, unspecified | CPT/HCPCS: 97110; 97530 ==

== ENCOUNTER → 2025-03-18 10:12 | Outpatient (REF) | payer MEDICARE, SELFPAY ==
[2025-03-18 10:50] LABS: Hematocrit 34.6 % (37.0-47.0); Hemoglobin 11.3 g/dL (12.0-16.0); Mean Corp Hgb Conc. 32.7 g/dL (33.0-37.0); Mean Corpuscular Volume 85.2 fL (81.0-99.0); Platelet Count 175 10^3/uL (130-400); Red Cell Dist. Width 14.4 % (11.5-14.5)
[2025-03-18 11:55] LABS: ALT (SGPT) 21 U/L (0-35); AST (SGOT) 20 U/L (14-36); Albumin 3.9 g/dl (3.5-5.0); Alkaline Phosphatase 176 U/L (38-126); Blood Urea Nitrogen 15 mg/dl (7-17); Calcium 8.9 mg/dl (8.4-10.2); Carbon Dioxide 30 mmol/L (22-30); Chloride 101 mmol/L (98-107); Glucose 218 mg/dl (70-99); Potassium 3.9 mmol/L (3.5-5.1); Sodium 138 mmol/L (135-145); Total Protein 6.5 g/dl (6.3-8.2); eGFR > 60.00
[2025-03-18 15:42] LABS: Nucleated Red Blood Cells % 0 %
== END ==
LOC: REG 10:12
PROVIDERS: ATTENDING PHYSICIAN Internal Medicine Hematology & Oncology; FAMILY PHYSICIAN Internal Medicine
DX: C25.0 Malignant neoplasm of head of pancreas (principal)
CPT/HCPCS: 36415; 80053; 85025

== ENCOUNTER → 2025-04-01 08:32 | Outpatient (REF) | payer MEDICARE, SELFPAY ==
[2025-04-01 09:42] LABS: Hematocrit 35.2 % (37.0-47.0); Hemoglobin 11.7 g/dL (12.0-16.0); Mean Corp Hgb Conc. 33.2 g/dL (33.0-37.0); Mean Corpuscular Volume 86.5 fL (81.0-99.0); Platelet Count 263 10^3/uL (130-400); Red Cell Dist. Width 15.7 % (11.5-14.5)
[2025-04-01 10:03] LABS: ALT (SGPT) 260 U/L (0-35); AST (SGOT) 60 U/L (14-36); Albumin 4.0 g/dl (3.5-5.0); Alkaline Phosphatase 343 U/L (38-126); Blood Urea Nitrogen 12 mg/dl (7-17); Calcium 8.8 mg/dl (8.4-10.2); Carbon Dioxide 27 mmol/L (22-30); Chloride 100 mmol/L (98-107); Glucose 95 mg/dl (70-99); Potassium 3.2 mmol/L (3.5-5.1); Sodium 135 mmol/L (135-145); Total Protein 6.7 g/dl (6.3-8.2); eGFR > 60.00
[2025-04-01 10:08] LABS: Nucleated Red Blood Cells % 0 %
== END ==
LOC: REG 08:32
PROVIDERS: ATTENDING PHYSICIAN Internal Medicine Hematology & Oncology
DX: C25.0 Malignant neoplasm of head of pancreas (principal)
CPT/HCPCS: 36415; 80053; 85025

== ENCOUNTER → 2025-04-08 09:10 | Outpatient (REF) | payer MEDICARE, SELFPAY ==
[2025-04-08 12:24] LABS: ALT (SGPT) 56 U/L (0-35); AST (SGOT) 24 U/L (14-36); Albumin 3.7 g/dl (3.5-5.0); Alkaline Phosphatase 280 U/L (38-126); Blood Urea Nitrogen 13 mg/dl (7-17); Calcium 8.6 mg/dl (8.4-10.2); Carbon Dioxide 31 mmol/L (22-30); Chloride 100 mmol/L (98-107); Glucose 135 mg/dl (70-99); Magnesium 2.2 mg/dl (1.6-2.3); Potassium 4.0 mmol/L (3.5-5.1); Sodium 136 mmol/L (135-145); Total Protein 6.2 g/dl (6.3-8.2); eGFR > 60.00
== END ==
LOC: REG 09:10
PROVIDERS: ATTENDING PHYSICIAN Nurse Practitioner Adult Health; FAMILY PHYSICIAN Physician Assistant
DX: C25.0 Malignant neoplasm of head of pancreas (principal)
CPT/HCPCS: 36415; 80053; 83735

== ENCOUNTER → 2025-04-09 12:41 | Outpatient (REF) | payer MEDICARE, SELFPAY | LOC: REG 12:41 | PROVIDERS: ATTENDING PHYSICIAN Internal Medicine Gastroenterology; FAMILY PHYSICIAN Physician Assistant | DX: K52.9 Noninfective gastroenteritis and colitis, unspecified (principal) | CPT/HCPCS: 82653 ==

== ENCOUNTER 2025-04-10 14:53 | Outpatient (RCR) | payer MEDICARE, SELFPAY | END 2025-04-23 23:59 | disposition home or self-care (01) | LOC: RPT 14:53 | PROVIDERS: ATTENDING PHYSICIAN Internal Medicine Hematology & Oncology; FAMILY PHYSICIAN Physician Assistant | DX: C25.0 Malignant neoplasm of head of pancreas (principal); R53.0 Neoplastic (malignant) related fatigue; Z73.6 Limitation of activities due to disability; M62.81 Muscle weakness (generalized); K59.00 Constipation, unspecified | CPT/HCPCS: 97110; 97530 ==

== ENCOUNTER 2025-04-16 20:09 | Inpatient (IN) | payer MEDICARE, SELFPAY ==
[2025-04-16 16:16] VITALS: BP 128/84
[2025-04-16 16:30] VITALS: BMI 18.6
[2025-04-16 16:36] LABS: Glucose - Point of Care 342 mg/dl (70-99)
--- NOTE | 2025-04-16 16:37 | ED.CVA ---
History of Present Illness
General
Chief Complaint: CVA/TIA Symptoms
Source: patient and spouse
Exam Limitations: none
Time Seen by Provider: 04/16/25 16:22
Nursing documentation reviewed up to this point in time: agreed with
Onset of Stroke Symptoms
Onset of symptoms known: Yes
Date of onset of symptoms: 04/16/25
Time of onset of symptoms: 15:30
Time pt last seen normal is known: Yes
Date last time pt seen normal: 04/16/25
Time last time pt seen normal: 15:30
History of Present Illness
History of Present Illness:
70-year-old female presents emerged emergency department due to difficulty speaking while driving home from her oncology appointment and starting on her chemotherapeutic Irinotecan. She does note that her symptoms have resolved since arriving to
the department. Stroke alert was called in triage.
Past History
Past History
ED Past Medical History: Asthma, Cancer, GERD and Hypercholesterolemia; Negative HTN, IDDM or NIDDM
ED Past Surgical History: Other (ERCP)
Social History
Tobacco: Non-smoker
Alcohol: None
Drug: None
Personal:
Living: with family
Family History
Family History: CAD
Review of Systems
Review of Systems
Allergies reviewed?: Yes
All Other Systems: Not applicable
Constitutional: Reports no symptoms
EENT: Reports no symptoms
Respiratory: Reports no symptoms
Cardiac: Reports no symptoms
ABD/GI: Reports no symptoms
: Reports no symptoms
Musculoskeletal: Reports no symptoms
Skin: Reports no symptoms
Neurological: Reports other (difficulty speaking)
Endocrine: Reports no symptoms
Hematologic/Lymphatic: Reports no symptoms
Psychiatric: Reports no symptoms
Phy Exam
Physical Exam
Physical Exam:
Physical Exam
General: no apparent distress, not acutely ill, actively receiving chemotherapy on pump
Neck: supple. no meningeal signs. normal posterior pharynx
Heart: s1/s2 regular rate and rhythm, no murmur. equal radial
pulses.
HEENT: Pupils equal round reactive to light, EOMI
Lungs: no acute respiratory distress. clear bilaterally
Abdomen: normal bowel sounds. not tender. no CVAT
Neuro: alert and oriented. no focal neurological deficits cranial nerves II through XII intact
Skin: no rash
Psychiatric: well kept. interactive and cooperative
Extremities: no edema. no calf tenderness. negative homans. good distal pulses
Course
Orders/Labs/Results
Orders:
Orders
04/16/25 16:19
CT HEAD STROKE ALERT W/o Cont Urgent
Reason For Exam: stroke alert
04/16/25 16:22
Cardiac Monitoring- Treatment ONCE
Pulse Ox/cont/shift [RESP] Stat
Quantity: 1
04/16/25 16:23
Electrocardiogram (*1) Stat
Reason for Study: Other
Other Reason for Exam: neuro symptoms
EKG- Treatment ONCE
04/16/25 16:35
CT HEAD/NECK ANG STROKE ALERT Urgent
Comment:
Reason For Exam: dysarthria started 1 hour ago
04/16/25 16:52
Complete Blood Count/With Diff Urgent
Comprehensive Metabolic Panel Urgent
Magnesium Urgent
Comment: ADDON
PTT Urgent
Prothrombin Time Urgent
04/16/25 18:36
Add On- LAB Urgent
Tests Added?: magnesium
04/16/25 18:59
Admit/Transfer Patient As Directed
Co-Sign Provider:
Level of Care: Inpatient admission
Assign to:: Telemetry
Physician / Group: abby
Diagnosis: aphasia
Reason for Telemetry: Arrhythmia
Date to Stop Telemetry: 04/19/25
Time to Stop Telemetry: 11:00
Reason for Hospitalization: aphasia
Expected length of stay greater than two midnights?: Yes
ELOS- Estimated Length of Stay in days: 2
I certify the patient meets the requirements for IP care: Yes
04/16/25 19:00
PRN Pain Medication Management As Directed
May give lesser potent ordered pain med per pt: Yes
preference::
Protocol:: Medication orders for pain may be administered in a
manner that supports deferring to patient preference
when the pt is:
- Requesting an ordered lesser potent pain medication.
Least to most potent pain medications are defined
as: acetaminophen < NSAID < tramadol < opioids
(morphine, oxycodone, hydromorphone).
- Requesting a lesser dose of the same medication IF
ORDERED.
- Requesting a less intrusive route of administration
if both routes are prescribed by the provider (PO <
IV).
04/16/25 19:01
Code Status As Directed
Resuscitation Status: Full Code
04/16/25 19:32
Potassium Chloride [KCl] 40 meq 0.9% Sodium Chloride 250 ml [Nss] 250 ml IV NOW
04/19/25 11:00
DC Protocol for Telemetry ONCE
Abnormal Lab Results
04/16/25 04/16/25
16:34 16:52
WBC 29.8 H 10^3/uL
(4.8-10.8)
Hct 36.9 L %
(37.0-47.0)
MCHC 32.5 L g/dL
(33.0-37.0)
RDW 16.6 H %
(11.5-14.5)
Abs Immat Gran (auto) 1.6 H 10^3/uL
(0-0.05)
Absolute Neuts (auto) 27.2 H 10^3/uL
(1.4-6.5)
Absolute Lymphs (auto) 0.8 L 10^3/uL
(1.2-3.4)
Immature Gran % 5.5 H %
(0-0.5)
Neutrophils % 91.2 H %
(42.2-75.2)
Lymphocytes % 2.7 L %
(20.5-51.1)
Monocytes % 0.5 L %
(1.7-9.3)
Sodium 130 L mmol/L
(135-145)
Potassium 2.9 L mmol/L
(3.5-5.1)
Chloride 94 L mmol/L
(98-107)
Glucose 317 H mg/dl
(70-99)
ALT 72 H U/L
(0-35)
Alkaline Phosphatase 460 H U/L
(38-126)
POC Glucose 342 H mg/dl
(70-99)
04/16/25 16:52
04/16/25 16:52
Vital Signs
Initial and Last Documented VS:
Initial Vital Signs
Temp Pulse Resp BP Pulse Ox
97.8 F 90 18 128/84 99
04/16/25 16:16 04/16/25 16:16 04/16/25 16:16 04/16/25 16:16 04/16/25 16:16
Last Documented Vital Signs
Temp Pulse Resp BP Pulse Ox
97.8 F 60 11 111/66 98
04/16/25 16:16 04/16/25 18:45 04/16/25 18:45 04/16/25 18:00 04/16/25 18:45
MDM/Problems Addressed
Differential Diagnosis Includes:
TIA versus medication adverse reaction
MDM/Problems Addressed:
70-year-old female with hypokalemia, episodic expressive aphasia TIA versus medication reaction. Admit to hospitalist
Chronic conditions affecting care: Cancer (Pancreatic)
*Radiology
Radiology exam reviewed: radiology read reviewed (CT head, CT angiography head and neck no acute findings)
*Pulse Oximetry
SaO2: 99
Oxygen Mode of Delivery: Room air
Patient hypoxic: no
*EKG
Interpreted by ED Provider?: Yes
EKG Intrepretation Date: 04/16/25
EKG Intrepretation Time: 17:02
Interpretation: normal
Comparison EKG: no comparison EKG present
Heart Rate: 67
Rate: normal
Rhythm: sinus
[place]: normal axis
Interval: normal interval
QRS Pattern: normal QRS
Ischemia: no ischemia
*Critical Care Note
Total Time (30-74mins, 75-104mins- exclusive of procedures): Not Applicable
Patient Management
Social determinants of health affecting care: Living situation and Strong social support
Discussion with other providers: Hospitalist and Retort Engineer (Oncology)
Escalation/DeEscalation of care consider admission/obs:
Admission indicated
ED Attending Note
-
Portions of this chart may have been created with voice recognition software.� Occasional wrong word or��sound alike� substitutions may have occurred due to the inherent limitations of voice recognition software.
Discharge Plan
Departure
Patient Disposition: Admit
Date of Disposition: 04/16/25
Time of Disposition: 18:38
Admit to: Telemetry
Presentation/result/management discussed w/ accepting MD/DO: Hospitalist
Condition: Good
Discharge Problem:
Acute hypokalemia, Expressive aphasia
Interventions
Interventions:
*General Assessment Last Done: 04/16/25 16:17
*Neglect/Abuse Screening Last Done: 04/16/25 16:17
*ED COVID-19 Vaccine History Last Done: 04/16/25 16:17
*ED Influenza Vaccine History Last Done: 04/16/25 16:17
[facility] Risk Assessment Tool Last Done: 04/16/25 16:30
*Risk Screen - Suicide (C-SSRS) Last Done: 04/16/25 16:17
ED- Pulmonary Assessment Last Done: 04/16/25 16:30
ED- Neurological Assessment Last Done: 04/16/25 16:30
ED- Cardiac Assessment Last Done: 04/16/25 16:30
ED Swallowing Screen Last Done: 04/16/25 17:07
[2025-04-16 17:08] VITALS: BP 113/70
[2025-04-16 17:34] LABS: INR 1.04; PT 13.7 Sec (11.4-14.6)
[2025-04-16 17:35] LABS: APTT 29.5 Sec (23.4-35.0)
[2025-04-16 17:38] LABS: ALT (SGPT) 72 U/L (0-35); AST (SGOT) 31 U/L (14-36); Albumin 4.2 g/dl (3.5-5.0); Alkaline Phosphatase 460 U/L (38-126); Blood Urea Nitrogen 10 mg/dl (7-17); Calcium 8.8 mg/dl (8.4-10.2); Carbon Dioxide 27 mmol/L (22-30); Chloride 94 mmol/L (98-107); Estimated Creatinine Clearance 56 ml/min; Glucose 317 mg/dl (70-99); Potassium 2.9 mmol/L (3.5-5.1); Sodium 130 mmol/L (135-145); Total Protein 7.0 g/dl (6.3-8.2); eGFR > 60.00
[2025-04-16 17:45] LABS: Hematocrit 36.9 % (37.0-47.0); Hemoglobin 12.0 g/dL (12.0-16.0); Mean Corp Hgb Conc. 32.5 g/dL (33.0-37.0); Mean Corpuscular Volume 87.4 fL (81.0-99.0); Nucleated Red Blood Cells % 0 %; Platelet Count 253 10^3/uL (130-400); Red Cell Dist. Width 16.6 % (11.5-14.5)
[2025-04-16 18:00] VITALS: BP 111/66
--- NOTE | 2025-04-16 19:04 | HPS.HSE ---
Family Physician
-
Family Physician: Trini Ingram
Chief Complaint
-
aphasia
History of Present Illness
70-year-old female past medical history of pancreatic cancer with history of prior ERCP with biliary stent, portal vein tumor thrombosis, constipation, GERD, stable asthma, hyperlipidemia, presenting with difficulty speaking while driving home from
her oncology appointment. She could not get her words out lasting 45 minutes. Symptoms resolved since arriving to the emergency room. Stroke alert was called in triage. She never had symptoms like this before. She did not have any head
headache, blurry vision, focal weakness, numbness or tingling, vertigo or swallowing difficulty.
She recently received her fourth chemotherapy treatment. Her oncologist is Dr. Bess.
She denies any vomiting or diarrhea at this time.
She denies any prior history of diabetes. She has been having trouble gaining weight.
She does not smoke or drink alcohol.
Medical History
Past Medical History
Past Medical History: Reports Other (pancreatic cancer with history of prior ERCP with biliary stent, portal vein tumor thrombosis, constipation, GERD, stable asthma, hyperlipidemia)
Past Surgical History: Reports None
Social History
Tobacco: Non-smoker
Alcohol: None
Drug: None
Family History
Family History: Not pertinent
Allergies / Home Medications
Allergies reflects when Allergies were last updated in [facility].
Home Medications with original date entered in [facility]
Allergy/Medication List:
Allergies
Allergy/AdvReac Type Severity Reaction Status Date / Time
mold Allergy chest Verified 04/16/25 16:16
tighness
MILDEW Allergy chest Uncoded 04/16/25 16:16
tighness
Home Medications
montelukast 10 mg tablet 10 mg PO HS Allergies 03/15/14
famotidine 40 mg tablet (Pepcid) 40 mg PO HS Gastrointestinal Issue 01/18/25
wenhuv-plzrlwht-nytfivk(pork)12,000-38,000-60,000 unit capsule,del rel (Creon) 1 cap PO AC ENZYME 02/11/25
oxycodone 5 mg tablet 5 mg PO Q6HPRN PRN severe pains 02/11/25
ipratropium 20 mcg-albuterol 100 mcg/actuation mist for inhalation 1 puff inhalation QID PRN wheezing 02/15/25
atorvastatin 10 mg tablet 10 mg PO DAILY 02/18/25
ciprofloxacin HCl 500 mg tablet 500 mg PO BID 8 days #17 tabs 02/21/25
sennosides 8.6 mg-docusate sodium 50 mg tablet (Senna Plus) 2 tab PO BID PRN Constipation #60 tabs 02/21/25
Review of Systems
-
History Source: Patient
A 12 point ROS was completed and negative except as noted: Yes
Constitutional: Reports No Symptoms
EENT: Reports No Symptoms
Respiratory: Reports No Symptoms
Cardiac: Reports No Symptoms
Abdomen/GI: Reports No Symptoms
: Reports No Symptoms
Musculoskeletal: Reports No Symptoms
Skin: Reports No Symptoms
Neurological: Reports No Symptoms
Endocrine: Reports No Symptoms
Hematologic/Lymphatic: Reports No Symptoms
Psych: Reports No Symptoms
Physical Exam
Vital Signs
Vital Signs
Temp Pulse Resp BP Pulse Ox
97.8 F 60 11 111/66 98
04/16/25 16:16 04/16/25 18:45 04/16/25 18:45 04/16/25 18:00 04/16/25 18:45
Physical Exam
General: Well Developed, Well Nourished and No Apparent Distress
HEENT: NormoCephalic, Moist mucous membranes and Atraumatic
Respiratory: Clear
Cardiac: S1/S2 and Regular Rhythm; No Murmur or Rub
GI: Soft, Non Tender, Non Distended and Normal Bowel Sounds; No Organomegaly
Rectal: Deferred by Provider
Musculoskeletal: No Clubbing, No Cyanosis and No Edema
Skin: No Rash
Neuro: Nonfocal/grossly intact
Laboratory Results
-
04/16/25 16:52
04/16/25 16:52
Laboratory Results
PT 13.7 Sec (11.4-14.6) 04/16/25 16:52
INR 1.04 04/16/25 16:52
APTT 29.5 Sec (23.4-35.0) 04/16/25 16:52
Total Bilirubin 0.5 mg/dl (0.2-1.3) 04/16/25 16:52
AST 31 U/L (14-36) 04/16/25 16:52
ALT 72 U/L (0-35) H 04/16/25 16:52
Alkaline Phosphatase 460 U/L (38-126) H 04/16/25 16:52
Data Reviewed
-
Lab Data: Labs Reviewed by me
Old Records: Reviewed
Impression/Plan
-
IMPRESSION:
PLAN:
# Aphasia secondary to possible TIA versus side effect from chemotherapy
-Symptoms resolved
- CT head shows no acute intracranial abnormality
- CTA head and neck shows no acute vascular occlusion
-Dr. Bess thought irinotecan can cause aphasia
- Check MRI brain
# Severe hypokalemia likely from chemotherapy
- Magnesium pending
- Potassium repletion
# Hyperglycemia likely from insulin deficiency from pancreatic cancer versus from chemotherapy
- Blood sugar 370
- Check A1c
- Insulin sliding scale
History of pancreatic cancer with history of biliary stent
- On chemotherapy
History of portal vein thrombosis
Constipation
GERD
Asthma
- Continue albuterol, montelukast,
Hyperlipidemia
- Continue statin
Full code
DVT prophylaxis SCDs
Diabetic diet
[2025-04-16 19:36] LABS: Magnesium 1.9 mg/dl (1.6-2.3)
[2025-04-16] MEDS: KCL 270 MEQ IV (20:34)
[2025-04-16] MEDS: PEPCID 40 MG PO (22:17)
[2025-04-16 23:00] VITALS: BP 110/67
[2025-04-16] MEDS: SINGULAIR 10 MG PO (23:00)
--- NOTE | 2025-04-16 23:00 | PTCARENOTE ---
Patient arrived to [facility] ED. Patient ambulated from stretcher to bed. Patient with portable chemo, Irinotecan, transfusing from this morning. PATENT ATTORNEY Starr Finney notified and oncologist [employer] i[employer] consultant Paula Bess notified. Patient AAOx3. Patient
oriented to room, bed in lowest position, call light within reach. Plan of care ongoing.
[2025-04-17 03:18] VITALS: BP 111/57
[2025-04-17 05:47] LABS: Hematocrit 29.9 % (37.0-47.0); Hemoglobin 9.9 g/dL (12.0-16.0); Mean Corp Hgb Conc. 33.1 g/dL (33.0-37.0); Mean Corpuscular Volume 85.7 fL (81.0-99.0); Platelet Count 193 10^3/uL (130-400); Red Cell Dist. Width 16.4 % (11.5-14.5)
[2025-04-17 06:33] LABS: ALT (SGPT) 55 U/L (0-35); AST (SGOT) 22 U/L (14-36); Albumin 3.3 g/dl (3.5-5.0); Alkaline Phosphatase 366 U/L (38-126); Blood Urea Nitrogen 12 mg/dl (7-17); Calcium 8.7 mg/dl (8.4-10.2); Carbon Dioxide 27 mmol/L (22-30); Chloride 105 mmol/L (98-107); Estimated Creatinine Clearance 56 ml/min; Glucose 122 mg/dl (70-99); Potassium 3.6 mmol/L (3.5-5.1); Sodium 136 mmol/L (135-145); Total Protein 5.9 g/dl (6.3-8.2); eGFR > 60.00
[2025-04-17 07:11] VITALS: BP 106/56
[2025-04-17 07:57] LABS: Glucose - Point of Care 116 mg/dl (70-99)
[2025-04-17] MEDS: NOVOLOG FLEXPEN-LOW RESISTANCE SC ×2 (07:57→17:19)
[2025-04-17] MEDS: ZENPEP DELAYED RELEASE CAPSULE 1 CAPSULE PO ×3 (07:57→16:58)
[2025-04-17 08:20] LABS: Nucleated Red Blood Cells % 0 %
--- NOTE | 2025-04-17 10:09 | W.PN.HOSP.TC ---
Addendum entered and electronically signed by Maycol Santo MD 04/17/25 22:16:
Attending Addendum-
I saw and evaluated the patient. I reviewed the resident�s note and agree with findings and plan as documented in the resident�s note. Sub: Seen with present. no further aphasia. feels back to baseline. No neurological deficits. Denies W/N/T
abd pain fevers chills. Full 12 point ROS reviewed and negative except as documented Exam: Vitals reviewed in chart GEN-NAd heart RRR no MRG Lugs CTA B/L abd soft NT ND LE no edema Neuro follows commands no cerebellar deficits speech fluent MS 5/
facial symmetry
# Aphasia secondary to TIA CVA versus side effect from chemotherapy
- Symptoms resolved
- CT head shows no acute intracranial abnormality
- CTA head and neck shows no acute vascular occlusion
- start asa
- Check MRI brain
# Severe hypokalemia likely from chemotherapy
- resolved, repeat BMP in am
# DM2 with Hyperglycemia
-BS improved
-A1c 6.7
-Insulin sliding scale
-start meds as OP with PCP
# History of pancreatic cancer with history of biliary stent
- On chemotherapy
#History of portal vein thrombosis
#GERD-cont pepdid
#Asthma
- Continue albuterol, montelukast,
#Hyperlipidemia
- Continue atorvastatin
Full code
DVT prophylaxis SCDs
Dispo DC in am post MRI
ACP
Patient consented to discuss, was with , time spent explanation of advance directives, changes in health status, patient�s health care wishes if the patient becomes unable to make health decisions, goals of care, code status, and prognosis-
16 minutes
Time spent coordinating care, review of plan of care with resident, personally reviewed previous records in EMR, med rec, labs, radiology, d/w nursing, family total time documented is exclusive of any additional time listed that was spent in advance
care planning discussion -�51 minutes
Original Note:
Today's Communication/Plan
-
Neurology consulted today
started on Aspirin 81 mg per neurology recs
LDL goal <70 if MRI demonstrates a stroke. LDL is 91. Initiate atorvastatin 40mg daily if there is a stroke per neurlogy reccs
follow MRI of the brain to be done tomorrow
contacted the MRI department and scheduled for tomorrow but with no time frame
Assessment / Plan
Assessment / Plan
70-year-old female past medical history of pancreatic cancer with history of prior ERCP with biliary stent, portal vein tumor thrombosis, constipation, GERD, stable asthma, hyperlipidemia, presenting with difficulty speaking while driving home from
her oncology appointment. She could not get her words out lasting 45 minutes. Symptoms resolved since arriving to the emergency room. Stroke alert was called in triage. She never had symptoms like this before. She did not have any head
headache, blurry vision, focal weakness, numbness or tingling, vertigo or swallowing difficulty.
She recently received her fourth chemotherapy treatment. Her oncologist is Dr. Bess.
Plan:
# Transient aphasia
-etiology is likely toxic metabolic encephalopathy in the setting of chemotherapy, differential diagnosis includes a TIA or small ischemic stroke given hypercoagulable state in the setting of cancer.
-Symptoms resolved
- CT head shows no acute intracranial abnormality
- CTA head and neck shows no acute vascular occlusion
-Per neurology recommendation:
-IV Tenecteplase/IAT candidacy: Not a candidate due to NIHSS 0, resolution of symptoms per neurology
-Goal normotension as it is now 24 hours since symptom onset.
-LDL goal <70 if MRI demonstrates a stroke. LDL is 91. Initiate atorvastatin 40mg daily if there is a stroke.
-Goal normoglycemia, hbA1c is 6.7.
-Checking blood work for metabolic abnormalities.
-started on Aspirin 81 mg daily
- Check MRI brain tomorrow
# Severe hypokalemia likely from chemotherapy
-resolved
- Magnesium normal 3.6
- Potassium normal today
# Hyperglycemia likely from insulin deficiency from pancreatic cancer versus from chemotherapy
- Blood sugar 370--122
- Check A1c 6.7
- Insulin sliding scale
#History of pancreatic cancer with history of biliary stent
- On chemotherapy
- continue pancrelipase
History of portal vein thrombosis
Constipation
GERD
Asthma
- Continue albuterol, montelukast,
Hyperlipidemia
- Continue statin 10mg
Full code
DVT prophylaxis SCDs
Diabetic diet
Anticipated Discharge: 24 - 48 hours
Subjective/Interval History
-
Date of Service: April 17, 2025
No overnight events, She was awake and talkative answered all my questions.She was receiving her chemo infusion through her port. She stated that she received the 6 hours chemotherapy at her oncologist office with dr Bess on 04/16/2025 and
completed the infusion days later on 04/18/2025 every two weeks, and she completed 4 sessions out of 12. She has low appetite and that is usually happened around the time when she receiving the chemotherapy. She has intermittent a pressure/ band
like discomfort around her upper abdomen that radiated to her back and that has been going on since she diagnosed with pancreatic cancer months ago. She denied headache, nausea, vomiting, double vision, tinglings , numbness or weakness.
Objective Data
-
Labs:
Laboratory Results
04/17/25
05:34
WBC 35.7 H
Hgb 9.9 L
Hct 29.9 L
Plt Count 193 D
Sodium 136
Potassium 3.6
Chloride 105
Carbon Dioxide 27
BUN 12
Creatinine 0.7
Glucose 122 H
Calcium 8.7
Total Bilirubin 0.3
AST 22
ALT 55 H
Alkaline Phosphatase 366 H
Vital Signs:
Vital Signs
Temp Pulse Resp BP Pulse Ox
98.4 F 56 18 106/56 99
04/17/25 07:11 04/17/25 07:11 04/17/25 07:11 04/17/25 07:11 04/17/25 07:11
I&O
04/16/25 04/17/25 04/18/25
06:59 06:59 06:59
Intake Total 120 / 120
Balance 120 / 120
Review of Systems
-
History Source: Patient
Respiratory: Reports No Symptoms
Cardiac: Reports No Symptoms
Abdomen/GI: Reports Other (epigastric tightness radiated to the back )
Genitourinary: Reports Dark Urine
Musculoskeletal: Reports No Symptoms
Neuro: Reports No Symptoms
Physical Exam
-
General: Comfortable and Cachectic
HEENT: Normocephalic and Atraumatic
Respiratory: Clear to Auscultation
Cardiac: Regular Rhythm and S1/S2
GI: Soft, Nontender and Nondistended
Musculoskeletal: No Clubbing, No Cyanosis and No Edema
Skin: Warm and Dry
Neuro: Awake, Alert and Oriented
Psych: Calm
--- NOTE | 2025-04-17 10:33 | VATNOTE ---
patient with SQ port that was accessed at [facility] as an out-patient. Patient states she has continuous chemo running via IV pump from home.
--- NOTE | 2025-04-17 11:27 | CON.NEURO4 ---
Addendum entered and electronically signed by Lauri Mckinney MD 04/17/25 17:27:
Studies reviewed.
I have personally examined the patient. I reviewed and agree with the COLLEGE SPECIALIST's Note.
My addenda:
Awake, alert, interactive. No acute distress.
Speech intact.
Follows 2-step requests w/o difficulty. No tremor.
Extra-ocular movements grossly intact.
Facial movements full and symmetric. Hearing intact to normal conversational volume.
Normal UE movements bilaterally.
Neck: full ROM.
Chest: no dyspnea
Heart: no JVD
Ext: (-) Clubbing, (-) Cyanosis, (-) Edema
IMPRESSIONS/RECOMMENDATIONS:
Abrupt onset of aphasia and confusion following recurrent chemotherapy infusion treating pancreatic cancer lasting for approximately 30 minutes without associated symptoms
Unfortunately, differential diagnosis remains broad including adverse effect of the medication, metabolic disturbances including hyponatremia, and TIA
Check MRI brain for completeness with and without contrast
Monitor blood pressures with consideration for orthostatic blood pressure monitoring
Continue supportive care
Continue the patient's usual chemotherapy
Follow LDL and initiate atorvastatin if stroke is discovered
D/W patient / family
All questions answered.
Will continue to follow pending results.
Original Note:
Documented by User: Darlin Phoenix NP 04/17/25 15:31
Consultation - Neurology 4
-
CONSULTING PHYSICIAN: Lauri Mckinney MD
REFERRING PHYSICIAN: Hospitalists/Dr. Sneha MD Resident
DICTATED BY: RODDY Kwong
DATE/TIME OF REQUEST: 04/17/25
DATE/TIME OF CONSULTATION: 04/17/25
Reason for Consultation: Speech difficulty
History of Present Illness:
This is a 70-year-old female who has presented to the hospital with report of speech difficulty. Patient reports that every week on Tuesday she has been receiving chemotherapy infusions. Following chemo, she typically feels exhausted and her speech
becomes hypophonic. Yesterday (04/16/25), she reports that after chemo it felt difficult to get her words out for about 30 minutes, which was new. She called her oncologist and was referred to the ER for evaluation. CT head and CTA head/neck were
obtained on arrival and are negative for any acute abnormalities. NIHSS was 0. She was not a candidate for TNK/IAT due to NIHSS 0, resolution of symptoms. Today (04/16/25), patient reports feeling at her baseline. She notes chronic discomfort
swallowing since starting chemo and severe lack of appetite. She lost 35 pounds in the past 3 months. She denies any headache, dizziness, vision changes, focal numbness, and focal weakness. Blood sugar has been elevated up to 317.
Past Medical History: Pancreatic cancer, portal vein tumor thrombosis, HLD, GERD, asthma
Surgical History: ERCP with biliary stent, MIAN-BSO, pelvic floor reconstruction
Family History: Reviewed and noncontributory.
Social History: Denies tobacco, alcohol, and illicit drug use.
Allergies: Mold, mildew.
Home Medications: See below.
Review of Symptoms:
Patient denies any fever, headache, chest pain, shortness of breath, or symptoms.
�Per the HPI.�All systems are reviewed negative except above.
Physical Exam:
The patient is afebrile, abdomen is nondistended, breathing is unlabored, skin is warm and dry, no edema.
NIH Stroke Scale:
I performed the NIH stroke scale on the patient on 04/17/25 at 1130. The patient scored 0 points on the NIH stroke scale assessment, which were assigned as follows: See below.
Neurologic Examination:
The patient is awake, alert and oriented x 3. She is able to follow commands and answer questions appropriately. There is no aphasia or dysarthria. On cranial nerve assessment, pupils are 3 mm bilateral, round and reactive to light and
accommodation. Visual dominguez are full. Extraocular movements are intact. Facial sensations are intact and bilaterally symmetrical, there is no facial asymmetry. Hearing is intact bilaterally to normal conversation volume. Tongue palate and uvula are
midline, geographic tongue. Sternocleidomastoid strengths are full bilaterally. Motor strengths are 5/5 bilateral upper and lower extremities on medical research [place] scale. There is no drift or involuntary movement noted. Deep tendon reflexes
are 2+ bilateral upper and lower extremities and Babinski is absent bilaterally. There was no extinction noted on double simultaneous stimulation. Coordination is intact by finger to nose bilaterally.
Lab Results: See below.
Neuro Imaging:
1. CT Head 04/17/25: No acute intracranial abnormality. ASPECT score: 10.
2. CTA Head/Neck 04/17/25: CTA Head: No large vessel occlusion. No significant arterial stenosis. No aneurysm. CTA Neck: No significant arterial stenosis.
Differentials for the patient's presentation include:
1. Transient aphasia; etiology is likely toxic metabolic encephalopathy in the setting of chemotherapy, differential diagnosis includes a TIA or small ischemic stroke given hypercoagulable state in the setting of cancer.
Patient has the following risk factors for their symptoms: Cancer, chemotherapy
IV Tenecteplase/IAT candidacy: Not a candidate due to NIHSS 0, resolution of symptoms.
Recommendations:
-MRI brain noncontrast pending.
-Initiate enteric coated aspirin 81mg daily.
-Goal normotension as it is now 24 hours since symptom onset.
-LDL goal <70 if MRI demonstrates a stroke. LDL is 91. Initiate atorvastatin 40mg daily if there is a stroke.
-Goal normoglycemia, hbA1c is 6.7.
-Checking blood work for metabolic abnormalities.
-NIHSS and neurological checks per unit guidelines.
-Provide patient with a stroke education packet.
-ST evaluations.
-DVT prophylaxis.
Discussed patient care with: Dr. Mckinney, the patient, patient's spouse
Vital Signs and Labs
-
Vital Signs and Labs:
Vital Signs
Temp Pulse Resp BP Pulse Ox
98.4 F 56 18 106/56 99
04/17/25 07:11 04/17/25 07:11 04/17/25 07:11 04/17/25 07:11 04/17/25 07:11
Lab Results
04/17/25 05:34
04/17/25 05:34
PT 13.7 Sec (11.4-14.6) 04/16/25 16:52
INR 1.04 04/16/25 16:52
APTT 29.5 Sec (23.4-35.0) 04/16/25 16:52
Sodium 136 mmol/L (135-145) 04/17/25 05:34
Potassium 3.6 mmol/L (3.5-5.1) 04/17/25 05:34
BUN 12 mg/dl (7-17) 04/17/25 05:34
Glucose 122 mg/dl (70-99) H 04/17/25 05:34
Calcium 8.7 mg/dl (8.4-10.2) 04/17/25 05:34
Medications
-
Active Medications
Generic Name Dose Route Start Last Admin
Trade Name Freq PRN Reason Stop Dose Admin
Acetaminophen 500 mg 04/16/25 22:27
Acetaminophen 500 Mg Tablet PO 05/14/25 22:26
Q4HPRN PRN
MILD PAIN
Dextrose 12.5 grams 04/16/25 22:27
Dextrose 50% (0.5 Grams/Ml) 50 Ml Syringe IV 05/14/25 22:26
[id number] PRN
hypoglycemia
Protocol
Famotidine 40 mg 04/16/25 21:53 04/16/25 22:17
Famotidine 20 Mg Tablet PO 05/14/25 21:52 40 mg
HSPRN PRN Administration
indigestion
Glucagon 1 mg 04/16/25 22:27
Glucagon 1 Mg Vial IM 05/14/25 22:26
PRN PRN
hypoglycemia
Protocol
Insulin Aspart 0 units 04/17/25 07:30 04/17/25 07:57
Insulin Aspart Low Resistance 300 Units/3 Ml Pen.Injctr SC 05/15/25 07:29 Not Given
AC MUMTAZ
Protocol
Montelukast Sodium 10 mg 04/16/25 22:27 04/16/25 23:00
Montelukast Sodium 10 Mg Tablet PO 05/14/25 22:26 10 mg
HS MUMTAZ Administration
Ondansetron HCl 8 mg 04/16/25 22:39
Ondansetron 4 Mg (Orally-Disintegrating) Tablet PO 05/14/25 22:38
Q8HPRN PRN
NAUSEA/VOMITING
Oxycodone HCl 5 mg 04/16/25 22:27
Oxycodone 5 Mg Regular Release Tablet PO 04/30/25 22:26
Q6HPRN PRN
severe pains
Pancrelipase 1 capsule 04/17/25 07:30 04/17/25 07:57
Pancrelipase (Zenpep) Delayed Release Capsule PO 05/15/25 07:29 1 capsule
AC MUMTAZ Administration
Prochlorperazine Maleate 10 mg 04/16/25 22:27
Prochlorperazine 10 Mg Tablet PO 05/14/25 22:26
Q6HPRN PRN
NAUSEA/VOMITING
Sodium Chloride 0 flush 04/16/25 23:00
Sodium Chloride 0.9% (Flush) Syringe IV 05/14/25 22:59
PER PROTOCOL MUMTAZ
Home Medications
�Medication �Instructions �Recorded
famotidine 40 mg tablet (Pepcid) 40 mg PO PRN PRN indigestion 01/18/25
[id number](pork)12,000-38,000-60,000 1 cap PO AC ENZYME 02/11/25
unit capsule,del rel (Creon)
oxycodone 5 mg tablet 5 mg PO Q6HPRN PRN severe pains 02/11/25
acetaminophen 500 mg tablet 500 mg PO PRN PRN pain 04/16/25
(Tylenol Extra Strength)
montelukast 10 mg tablet 10 mg PO HS 04/16/25
ondansetron 8 mg disintegrating 8 mg PO PRN PRN [id number] 04/16/25
tablet
prochlorperazine maleate 10 mg 10 mg PO PRN PRN [id number] 04/16/25
tablet
NIH Stroke Score
Subsequent NIH Scale
Date of Subsequent NIH Scale: 04/17/25
Time of Subsequent NIH Scale: 11:30
NIH Stroke Score
Level of Consciousness: 0 - Alert
LOC Questions: 0-Answers both correctly
LOC Commands: 0-Performs both correctly
Best Horizontal Gaze: 0-Normal
Visual Dominguez: 0=Normal, no visual loss
Facial Palsy: 0=Normal, symmetrical
Motor - Right Arm: 0=No drift 10 seconds
Motor - Left Arm: 0=No drift 10 seconds
Motor - Right Le-No drift 5 seconds
Motor - Left Le-No drift 5 seconds
Limb Ataxia: 0-Absent
Sensation: 0-Normal
Best Language: 0-No aphasia
Dysarthria: 0-Normal
Extinction and Inattention: 0-No abnormality
NIH Total Score:: 0
Modified [place] (mRS) Score
Modified [place] Scale (mRS): No symptoms
Score: 0
Alteplase Contraindication
Inclusion and Exclusion criteria reviewed: Yes
IAT Contraindications: NIHSS < 6

Documented by User: Lauri Mckinney MD 04/17/25 17:18
NIH Stroke Score
NIH Stroke Score
NIH Total Score:: 0
Modified [place] (mRS) Score
Score: 0
[2025-04-17] MEDS: ASPIR LOW (ENTERIC COATED) 81 MG PO (12:02)
[2025-04-17 12:10] VITALS: BMI 18.6
[2025-04-17 12:42] LABS: Glucose - Point of Care 156 mg/dl (70-99)
[2025-04-17] MEDS: NOVOLOG FLEXPEN-LOW RESISTANCE 1 UNITS SC (13:23)
[2025-04-17 15:00] VITALS: BP 102/60
--- NOTE | 2025-04-17 15:53 | CM ---
Alert awake oriented patient who lives with her Ron in a 2 story home with 3 steps to enter and bed/bathroom on first floor. She is independent in activates of daily living.She does drive .She uses no adaptive devices. She is currently
going thru chemo therapy every other week.
IMM reviewed with pt IMM signed on chart.Offered VN declined need.
No VN in past . No SNF hx
Pharmacy [facility] [address]
PCP Trini SMITH
PLAN Home with no needs
[2025-04-17 17:07] LABS: Glucose - Point of Care 149 mg/dl (70-99)
[2025-04-17 17:19] LABS: Ferritin 409.0 ng/ml (11.1-264.0)
[2025-04-17 17:51] LABS: Folate > 20.0 ng/ml (2.76-20); Vitamin B12 > 1000 pg/ml (239-931)
[2025-04-17 19:00] VITALS: BP 113/54
[2025-04-17 21:34] LABS: Glucose - Point of Care 127 mg/dl (70-99)
[2025-04-17] MEDS: SINGULAIR 10 MG PO (22:13)
[2025-04-17 23:00] VITALS: BP 104/50
[2025-04-18 03:04] VITALS: BP 115/57
[2025-04-18 05:53] LABS: Hematocrit 29.5 % (37.0-47.0); Hemoglobin 9.9 g/dL (12.0-16.0); Mean Corp Hgb Conc. 33.6 g/dL (33.0-37.0); Mean Corpuscular Volume 87.5 fL (81.0-99.0); Nucleated Red Blood Cells % 0 %; Platelet Count 158 10^3/uL (130-400); Red Cell Dist. Width 16.3 % (11.5-14.5)
[2025-04-18 06:20] LABS: ALT (SGPT) 44 U/L (0-35); AST (SGOT) 21 U/L (14-36); Albumin 3.0 g/dl (3.5-5.0); Alkaline Phosphatase 299 U/L (38-126); Blood Urea Nitrogen 13 mg/dl (7-17); Calcium 8.4 mg/dl (8.4-10.2); Carbon Dioxide 28 mmol/L (22-30); Chloride 104 mmol/L (98-107); Estimated Creatinine Clearance 66 ml/min; Glucose 119 mg/dl (70-99); Potassium 3.9 mmol/L (3.5-5.1); Sodium 136 mmol/L (135-145); Total Protein 5.5 g/dl (6.3-8.2); eGFR > 60.00
[2025-04-18 07:31] LABS: Glucose - Point of Care 134 mg/dl (70-99)
[2025-04-18] MEDS: NOVOLOG FLEXPEN-LOW RESISTANCE SC (07:31)
[2025-04-18 07:48] VITALS: BP 103/63
[2025-04-18 08:00] LABS: Glucose - Point of Care 125 mg/dl (70-99)
[2025-04-18] MEDS: ZENPEP DELAYED RELEASE CAPSULE 1 CAPSULE PO ×2 (08:11→12:44)
[2025-04-18] MEDS: ASPIR LOW (ENTERIC COATED) 81 MG PO (08:11)
[2025-04-18 11:16] VITALS: BP 101/61
--- NOTE | 2025-04-18 12:26 | W.PN.HOSP.TC ---
Addendum entered and electronically signed by Maycol Santo MD 04/18/25 22:05:
addendum DX-moderate PCM
Addendum entered and electronically signed by Maycol Santo MD 04/18/25 22:00:
Attending Addendum-
I saw and evaluated the patient. I reviewed the resident�s note and agree with findings and plan as documented in the resident�s note. Sub: Seen with present. no further aphasia. feels great. No neurological deficits. Denies W/N/T abd pain
fevers chills. Full 12 point ROS reviewed and negative except as documented Exam: Vitals reviewed in chart GEN-NAd heart RRR no MRG Lugs CTA B/L abd soft NT ND LE no edema Neuro follows commands no cerebellar deficits speech fluent MS 5/5 facial
symmetry
# Aphasia secondary to TIA versus side effect from chemotherapy
- Symptoms resolved
- CT head shows no acute intracranial abnormality
- CTA head and neck shows no acute vascular occlusion
- cont asa
- MRI brain-No acute intracranial abnormality
- appreciate neuro input
# Severe hypokalemia likely from chemotherapy
- resolved
# DM2 with Hyperglycemia
-BS improved
-A1c 6.7
-Insulin sliding scale
-start meds as OP with PCP
# History of pancreatic cancer with history of biliary stent
- On chemotherapy-continued continuous infusion while IP
#History of portal vein thrombosis
#GERD-cont pepdid
#Asthma
- Continue albuterol, montelukast,
#Hyperlipidemia
- Continue atorvastatin
Full code
DVT prophylaxis SCDs
Dispo DC home with
Time spent coordinating care, DC planning, review of DC plan of care with resident, transition of care, review of records, med rec/scripts sent electronically, consults, notes, d/w consultants, nursing, family, and CM�32 mins >50% of this time was
devoted to counseling and coordination of care
Original Note:
Today's Communication/Plan
-
chemotherapy infusion through the port by pump schedules for 46 hr finished today's morning
MRI of the brain showed no stroke
Discharged home on aspirin 81 mg per neurology consult and to follow up with PCP and neurologist as an out patient
Assessment / Plan
Assessment / Plan
70-year-old female past medical history of pancreatic cancer with history of prior ERCP with biliary stent, portal vein tumor thrombosis, constipation, GERD, stable asthma, hyperlipidemia, presenting with difficulty speaking while driving home from
her oncology appointment. She could not get her words out lasting 45 minutes. Symptoms resolved since arriving to the emergency room. Stroke alert was called in triage. She never had symptoms like this before. She did not have any head
headache, blurry vision, focal weakness, numbness or tingling, vertigo or swallowing difficulty.
She recently received her fourth chemotherapy treatment. Her oncologist is Dr. Bess.
04/18/2025: her chemotherapy infusion stopped this morning
Plan:
# Transient aphasia
-etiology is likely toxic metabolic encephalopathy in the setting of chemotherapy, differential diagnosis includes a TIA or small ischemic stroke given hypercoagulable state in the setting of cancer.
-Symptoms resolved
- CT head shows no acute intracranial abnormality
- CTA head and neck shows no acute vascular occlusion
-Per neurology recommendation:
-IV Tenecteplase/IAT candidacy: Not a candidate due to NIHSS 0, resolution of symptoms per neurology
-Goal normotension as it is now 24 hours since symptom onset.
-LDL goal <70 if MRI demonstrates a stroke. LDL is 91. Initiate atorvastatin 40mg daily if there is a stroke.
-Goal normoglycemia, hbA1c is 6.7.
-Checking blood work for metabolic abnormalities.
-started on Aspirin 81 mg daily
- MRI of the brain , showed no stroke
# Severe hypokalemia likely from chemotherapy
-resolved
- Magnesium normal 3.6
- Potassium normal today
#Moderate protein calorie malnutrition
- Likely related related to her pancreatic cancer that has been diagnosed couple months and she has been receiving chemotherapy
- Pt has low appetite since she started chemotherapy couple months ago
- Marketing Automation Manager evaluated the pt
- Unintentional weight loss >7.5% in 3 months (wt loss of 18lbs or 15% change)
- Nutrient intake </= 75% estimated energy needs, >/= 1 month
- per dietitian recommended intake of 1670 kcal/day and to finish at least 50% of the meal
# Hyperglycemia likely from insulin deficiency from pancreatic cancer versus from chemotherapy
- Blood sugar 370--122
- Check A1c 6.7
- Insulin sliding scale
#History of pancreatic cancer with history of biliary stent
- On chemotherapy
- continue pancrelipase
History of portal vein thrombosis
Constipation
GERD
Asthma
- Continue albuterol, montelukast,
Hyperlipidemia
- Continue statin 10mg
Full code
DVT prophylaxis SCDs
Diabetic diet
Anticipated Discharge: Today
Subjective/Interval History
-
Date of Service: April 18, 2025
She still has no neurological symproms, she still have low appetite that she has been experiencing since she started to receive chemotherapy
Objective Data
-
Labs:
Laboratory Results
04/18/25
05:19
WBC 16.0 H
Hgb 9.9 L
Hct 29.5 L
Plt Count 158
Sodium 136
Potassium 3.9
Chloride 104
Carbon Dioxide 28
BUN 13
Creatinine 0.6
Glucose 119 H
Calcium 8.4
Total Bilirubin 0.3
AST 21
ALT 44 H
Alkaline Phosphatase 299 H
Vital Signs:
Vital Signs
Temp Pulse Resp BP Pulse Ox
98 F 65 14 101/61 100
04/18/25 11:16 04/18/25 11:16 04/18/25 11:16 04/18/25 11:16 04/18/25 11:16
I&O
04/17/25 04/18/25 04/19/25
06:59 06:59 06:59
Intake Total 720 / 720
Balance 720 / 720
Review of Systems
-
History Source: Patient
Constitutional: Reports No Appetite
Respiratory: Reports No Symptoms
Cardiac: Reports No Symptoms
Abdomen/GI: Reports Other (epigastric tightness radiated to the back )
Musculoskeletal: Reports No Symptoms
Neuro: Reports No Symptoms
Physical Exam
-
General: Comfortable and Cachectic
HEENT: Normocephalic and Atraumatic
Respiratory: Clear to Auscultation
Cardiac: Regular Rhythm and S1/S2
GI: Soft, Nontender and Nondistended
Musculoskeletal: No Clubbing, No Cyanosis and No Edema
Skin: Warm and Dry
Neuro: Awake, Alert and Oriented
Psych: Calm
[2025-04-18 12:44] LABS: Glucose - Point of Care 184 mg/dl (70-99)
[2025-04-18] MEDS: NOVOLOG FLEXPEN-LOW RESISTANCE 1 UNITS SC (12:47)
--- NOTE | 2025-04-18 13:05 | CM ---
entered order for discharge today.
Pt will be dc to home with Oscar.
will drive her home.
Offered VN she declined need.
PLAN Home no needs
--- NOTE | 2025-04-18 13:26 | PN.CDI ---
CDI
- -
CDI:
Physician Documentation Request
Admit Date: 04/16/25 20:09
Dear Doctor,
Please review the following and provide your response in the progress notes.
Clinical Indicators:
- Joint Filler note indicates moderate protein calorie malnutrition
- Unintentional weight loss >7.5% in 3 months (wt loss of 18lbs or 15% change)
- Nutrient intake </= 75% estimated energy needs, >/= 1 month
Based on the above information and your assessment, which of the following most accurately represents the patient's nutritional status?
Moderate protein calorie malnutrition
Other (please specify)
[place] Criteria ([facility] Hospitalist 2017)
2 or more criteria must be present for either
non severe or severe malnutrition
Note that the criteria differs related to the
presence of an acute or chronic illness
Acute Illness Chronic Illness
Energy Intake Non Severe: <75% for >7 days Non Severe: <75% for >1 month
Severe: <50% for >5 days Severe: <75% for >1 month
Weight Loss Non Severe: 1-2% over 1 week Non Severe: 5% over 1 month
5% over 1 month 7.5% over 3 months
7.5% over 3 months 10% over 6 months
1 year N/A 20% over 1 year
Severe: >2% over 1 week Severe: >5% over 1 month
>5% over 1 month >7.5% over 3 months
>7.5% over 3 months >10% over 6 months
1 year N/A >20% over 1 year
Body Fat Non Severe: Mild Decrease Non Severe: Mild Loss
Severe: Moderate Decrease Severe: Severe Loss
Muscle Mass Non Severe: Mild Decrease Non Severe: Mild Loss
Severe: Moderate Decrease Severe: Severe Loss
Fluid Accumulation Non Severe: Mild Accumulation Non Severe: Mild Accumulation
Severe: Moderate to severe Severe: Moderate to severe
accumulation accumulation
Reduced Early Childhood Associate Teacher Strength Non Severe: N/A Non Severe: N/A
Severe: Measurably reduced Severe: Measurably reduced
Additional criteria that can be used to Determine if Mild or Moderate Malnutrition (Merck Manual 2018)
Mild Moderate Severe
Albumin gm/dl <3.0 gm/dl <2.5 gm/dl <2.0 gm/dl
Pre Albumin mg/dl <15 gm/dl <10 mg/dl <5.0 mg/dl
BMI <18.5 <17 <16
Use of terms such as suspected, likely, concern for, or probable (associated with a specific diagnosis that is being evaluated, monitored, or treated as if it exists) are acceptable and can be coded in the inpatient setting, when documented at the
time of discharge.
Thank you,
Cinthya Mann RN
CDI Specialist
Please use your independent medical judgment in providing your response.
--- NOTE | 2025-04-21 20:41 | W.DCSUMMARY ---
Addendum entered and electronically signed by Maycol Santo MD 04/22/25 10:23:
Read, reviewed and agree
Brayan Santo MD
Original Note:
Documented by User: Damian Hoover MD, Resident 04/21/25 21:54
Discharge Summary
Discharge Data
Date of Admission: 04/16/25
Date of Discharge: 04/18/25
-
Pending Results: No
Hospital Course
Discharging Physician:
Maycol Santo
Damian Hoover
Disposition:
Home
Primary Care Physician:
Trini Ingram
Principal Discharge Diagnosis:
TIA (transient Aphasia)
Hypokalemia
Hyperglycemia
Chronic Discharge Diagnosis:
pancreatic cancer with history of prior ERCP with biliary stent, portal vein tumor thrombosis, constipation, GERD, stable asthma, hyperlipidemia
Hospital Course:
70-year-old female presented to the hospital with difficulty speaking while driving home from her oncology appointment after receiving chemotherapy infusion for 6 hours. She could not get her words out lasting 45 minutes. Symptoms resolved since
arriving to the emergency room. Stroke alert was called in triage. She never had symptoms like this before. She did not have any head headache, blurry vision, focal weakness, numbness or tingling, vertigo or swallowing difficulty.
She recently received her fourth chemotherapy treatment that scheduled every [address] Bess.
At ER she was AFVSS. Had leukocytosis WBC 29.8 , Glucose 317, K 2.9, ALT 72, AST 31, ALP 460, Na 130, Ferritin 409, total Bilirubin 0.3. EKG NSR, Head CT of the head showed no acute abnormalities, CTA of the head and neck showed no large vessel
occlusion. No significant arterial stenosis. No aneurysm. Neurology consulted and MRI was done and showed no sign of acute stroke. Per neurologist note this could be a side effect from the chemotherapy vs TIA. She started on aspirin 81mg daily and
discharged on it.
Patient came to the hospital on chemotherapy infusion through a pump for 46 hours and scheduled every 2 weeks, She had been informed by her oncologist that the one of the medication that she was receiving 5FU can cause stroke like symptoms(trouble
speaking) and the oncologist advised her to go to the hospital.She has low apetit since she has been started receiving chemotherapy. She found to have hyperglycemia which improved on sliding scaled insulin, her Hb A1c 6.7. Her potassium was
repleted.Her WBC has been trended down 29.8--35.7--16. She remained stable without any new symptoms and discharged home in stable condition. Patient advised to follow u with her PCP and neurologist as an outpatient visit.
Important Imaging:
Brain MRI 04/18/2025
The ventricles and sulci are normal in size and configuration. T2/FLAIR hyperintense signal in the white matter of the bilateral cerebral hemispheres, most compatible with mild chronic microangiopathic ischemia. No mass effect, midline shift, or
extra axial collection. No abnormal signal intensity on diffusion-weighted images.
Head CT scan w/o contrast 04/16/2025
There is no acute intracranial hemorrhage, large vessel territory infarction or mass.There is mild subcortical, deep, and periventricular white matter low-attenuation, compatible with changes of chronic small vessel ischemic disease. The ventricles
are normal in size, configuration, and position. . The basal cisterns are patent. Visualized paranasal sinuses are free of mucosal disease.. Unremarkable appearance of the calvarium.
Head and neck CTA 04/16/2015
No large vessel occlusion. No significant arterial stenosis. No aneurysm.
Discharge Plan
-
Patient Disposition: Home (Routine Discharge)
Discharge Diagnosis/Procedures: TIA (transient Aphasia)
Hypokalemia
Hyperglycemia
Condition: Fair
Diet: Diabetic, Carb Controlled
Activity: No restrictions
Driving Restrictions: As prior to admission
Bathing Restrictions: OK to Shower
Instructions: Stroke (DC)
Referrals:
Trini Ingram PA-C [Family Provider, Internal Medicine] - in less than 1 week
Lauri Mckinney MD [Active, Neurology] - in one week
Additional Discharge Medication Instructions: Take Aspirin 81 mg tablet daily and follow up with your primary care physician to renew the medication
Please see neurologist in one week
please visit your PCP for blood glucose level that was elevated at the admission
Prescriptions:
New
aspirin 81 mg Tablet,Delayed Release (Dr/Ec)
81 mg PO DAILY 30 Days Qty: 30 0RF
Continued
famotidine [Pepcid] 40 mg Tablet
40 mg PO PRN PRN (Reason: indigestion)
oxycodone 5 mg Tablet
5 mg PO Q6HPRN PRN (Reason: severe pains)
Creon 12,000-38,000 -60,000 unit Capsule,Delayed Release(Dr/Ec)
1 cap PO AC
prochlorperazine maleate 10 mg Tablet
10 mg PO PRN PRN (Reason: [id number])
acetaminophen [Tylenol Extra Strength] 500 mg Tablet
500 mg PO PRN PRN (Reason: pain)
ondansetron 8 mg Tablet,Disintegrating
8 mg PO PRN PRN (Reason: [id number])
montelukast 10 mg Tablet
10 mg PO HS
Discharge Orders:
Discharge Patient (As Directed); Ordered 04/18/25
Ordered By: Damian Hoover
Discharge Date and Time
Discharge Date/Time: 04/18/25 13:21
Print Language: GREEK

Documented by User: Maycol Santo MD 04/22/25 10:22
Discharge Summary
Discharge Data
Date of Admission: 04/16/25
Date of Discharge: 04/22/25
Discharge Plan
-
Patient Disposition: Home (Routine Discharge)
Discharge Diagnosis/Procedures: TIA (transient Aphasia)
Hypokalemia
Hyperglycemia
Condition: Fair
Diet: Diabetic, Carb Controlled
Activity: No restrictions
Driving Restrictions: As prior to admission
Bathing Restrictions: OK to Shower
Instructions: Stroke (DC)
Referrals:
Trini Ingram PA-C [Family Provider, Internal Medicine] - in less than 1 week
Lauri Mckinney MD [Active, Neurology] - in one week
Additional Discharge Medication Instructions: Take Aspirin 81 mg tablet daily and follow up with your primary care physician to renew the medication
Please see neurologist in one week
please visit your PCP for blood glucose level that was elevated at the admission
Prescriptions:
New
aspirin 81 mg Tablet,Delayed Release (Dr/Ec)
81 mg PO DAILY 30 Days Qty: 30 0RF
Continued
famotidine [Pepcid] 40 mg Tablet
40 mg PO PRN PRN (Reason: indigestion)
oxycodone 5 mg Tablet
5 mg PO Q6HPRN PRN (Reason: severe pains)
Creon 12,000-38,000 -60,000 unit Capsule,Delayed Release(Dr/Ec)
1 cap PO AC
prochlorperazine maleate 10 mg Tablet
10 mg PO PRN PRN (Reason: [id number])
acetaminophen [Tylenol Extra Strength] 500 mg Tablet
500 mg PO PRN PRN (Reason: pain)
ondansetron 8 mg Tablet,Disintegrating
8 mg PO PRN PRN (Reason: [id number])
montelukast 10 mg Tablet
10 mg PO HS
Discharge Orders:
Discharge Patient (As Directed); Ordered 04/18/25
Ordered By: Damian Hoover
Discharge Date and Time
Discharge Date/Time: 04/18/25 13:21
Print Language: GREEK
== END 2025-04-18 13:21 | disposition home or self-care (01) | DRG 92 ==
LOC: 3 WEST ACU 20:09
PROVIDERS: Specialist Research Data Abstracter/Coder; ADMITTING PHYSICIAN Hospitalist; ATTENDING PHYSICIAN Family Medicine; CONSULT PHYSICIAN Psychiatry & Neurology Neurology; EMERGENCY PHYSICIAN Emergency Medicine; FAMILY PHYSICIAN Physician Assistant
DX: G92.8 Other toxic encephalopathy (principal); C25.9 Malignant neoplasm of pancreas, unspecified; R47.01 Aphasia; G45.9 Transient cerebral ischemic attack, unspecified; E87.1 Hypo-osmolality and hyponatremia; E44.0 Moderate protein-calorie malnutrition; Z68.1 Body mass index [BMI] 19.9 or less, adult; T45.1X5A Adverse effect of antineoplastic and immunosuppressive drugs, initial encounter; E78.00 Pure hypercholesterolemia, unspecified; K21.9 Gastro-esophageal reflux disease without esophagitis; J45.909 Unspecified asthma, uncomplicated; E11.65 Type 2 diabetes mellitus with hyperglycemia; D72.829 Elevated white blood cell count, unspecified; R47.1 Dysarthria and anarthria; E87.6 Hypokalemia; K59.00 Constipation, unspecified; Y92.9 Unspecified place or not applicable; Z86.718 Personal history of other venous thrombosis and embolism; Z82.49 Family history of ischemic heart disease and other diseases of the circulatory system
CPT/HCPCS: 36415; 70450; 70496; 70498; 70551; 80053; 82248; 82607; 82728; 82746; 82962; 83036; 83735; 84439; 84443; 85025; 85610; 85730; 93005; 94760; 96365; 96366; 99285; Q9967

== ENCOUNTER → 2025-04-24 14:20 | Outpatient (REF) | payer MEDICARE, SELFPAY | LOC: RAD 14:20 | PROVIDERS: ATTENDING PHYSICIAN Internal Medicine Hematology & Oncology; FAMILY PHYSICIAN Physician Assistant | DX: C25.0 Malignant neoplasm of head of pancreas (principal) | CPT/HCPCS: 71260; 74177; Q9967 ==

== ENCOUNTER → 2025-04-29 07:23 | Outpatient (REF) | payer MEDICARE, SELFPAY ==
[2025-04-29 09:49] LABS: Hematocrit 37.3 % (37.0-47.0); Hemoglobin 12.1 g/dL (12.0-16.0); Mean Corp Hgb Conc. 32.4 g/dL (33.0-37.0); Mean Corpuscular Volume 88.0 fL (81.0-99.0); Platelet Count 261 10^3/uL (130-400); Red Cell Dist. Width 16.9 % (11.5-14.5)
[2025-04-29 10:11] LABS: ALT (SGPT) 30 U/L (0-35); AST (SGOT) 20 U/L (14-36); Albumin 4.0 g/dl (3.5-5.0); Alkaline Phosphatase 262 U/L (38-126); Blood Urea Nitrogen 9 mg/dl (7-17); Calcium 8.7 mg/dl (8.4-10.2); Carbon Dioxide 30 mmol/L (22-30); Chloride 100 mmol/L (98-107); Glucose 101 mg/dl (70-99); Potassium 2.8 mmol/L (3.5-5.1); Sodium 138 mmol/L (135-145); Total Protein 6.7 g/dl (6.3-8.2); eGFR > 60.00
[2025-04-29 10:26] LABS: Nucleated Red Blood Cells % 0 %
== END ==
LOC: REG 07:23
PROVIDERS: ATTENDING PHYSICIAN Internal Medicine Hematology & Oncology; FAMILY PHYSICIAN Physician Assistant
DX: C25.0 Malignant neoplasm of head of pancreas (principal)
CPT/HCPCS: 36415; 80053; 85025